=== PATIENT | female | born 1965 | race African-American/Black ===

== ENCOUNTER 2016-03-18 18:29 | Observation (INO) | payer MEDICAID ==
[~2016-03-18] VITALS: Ht 154.9 cm; Wt 95.0 kg
[~2016-03-18 18:29] MED LIST: ALBU0.08 NEB; ALBUAER3 INH; AMLO10TA2 PO; ASPI-110 PO; ATOR1TAB18 PO; FURO40TA PO; GABA600T PO; GEMF600T PO; HYDR25TA35 PO; INSU100V SQ; LANTUS2P; METF1000 PO; METO25TA3 PO; NITR1SUB3 SL; POLY10O RIGHT EYE; PRAS10TA PO; PRED-503 PO; SPIR50TA PO; VALS1TAB64 PO; VENTAER INH
[2016-03-18 18:31] VITALS: BP 131/64; PULSE 94; RESP 15; TEMP 98.2; O2SAT 95
[2016-03-18 18:56] VITALS: BP 125/59; PULSE 88; O2SAT 95
[2016-03-18] MEDS ORDERED: SODIUM CHLORIDE 0.9% FLUSH 5 ML FLUSH IVF PRN (19:00)
[2016-03-18] MEDS ORDERED: ASPIRIN 81 MG CHEW TAB CHEW ONE (19:00)
--- NOTE | 2016-03-18 19:03 | PD ---
HPI Chief Complaint: Dizziness Time Seen by Provider: 18:59 Travel History International Travel<30 days: No Contact w/Intl Traveler<30days: No Traveled to known affect area: No History of Present Illness HPI This is a 50-year-old female who has a history of a CABG and recent stent placement to one of her grafts, presenting to the emergency department having been doing laundry when she started to feel lightheaded and dizzy like she was going to pass out. She says that her vision got dark, she felt pressure in her left chest and she also felt somewhat nauseous and short of breath. She says that it she doesn't feel dizzy anymore but she still feels a heaviness in her left chest. She says she's never had this happen before. She does report that she's been sick with cold symptoms with a runny nose and cough over the past week preceding this. Her tv news director is Dr. Engel. REPLACED BY [facility] Past Medical History Hx Anticoagulant Therapy: Yes Asthma: Yes Autoimmune Disease: No Blood Disorders: No Anxiety: Yes Depression: No Heart Rhythm Problems: Yes (EPISODE OF UNSUSTAINED VTACH ON PREVIOUS ADMISSION) Cancer: No Cardiac Catheterization: Yes Cardiovascular Problems: Yes High Cholesterol: Yes Chest Pain: Yes Congestive Heart Failure: Yes COPD: Yes Cerebrovascular Accident: No Coronary Artery Disease: Yes Diabetes: Yes (INSULIN ) Patient Takes Glucophage: No Diminished Hearing: Yes (MILLE LACS) Endocrine: Yes Gastrointestinal Disorders: No GERD: Yes Genitourinary: Yes Headaches: No Hypertension: Yes Immune Disorder: No Implanted Vascular Access Dvce: No Musculoskeletal: No Neurologic: No Psychiatric: No Reproductive: Yes (HYSTERECTOMY) Respiratory: Yes Migraines: No Myocardial Infarction: Yes Pneumonia: Yes Seizures: No Sleep Apnea: No Thyroid Disease: No Tetanus Vaccination: > 5 Years ?: Not Menopausal: Yes : 4 Para: 4 Tubal Ligation: Yes Past Surgical History Abdominal Surgery: No Cardiac Surgery: Yes (TRIPLE BYPASS 2011) Coronary Artery Bypass Graft: Yes (CABG X 23 NOV 2011) Coronary Stent: Yes Ear Surgery: No Endocrine Surgery: No Eye Surgery: No Genitourinary Surgery: No Gynecologic Surgery: Yes (HYSTERECTOMY, TUBaL LIGATION) Hysterectomy: Yes Neurologic Surgery: No Oral Surgery: No Thoracic Surgery: No Other Surgery: Yes (R HAND ) Family History Family Myocardial Infarction: Yes (MOTHER AND FATHER) Social History Alcohol Use: Yes (OCC) Tobacco Use: Yes (1-2 CIG/DAY) Substance Use: No Allergies-Medications (Allergen,Severity, Reaction): Coded Allergies: FREDRICK Inhibitors (Verified Allergy, Severe, Swelling, 02/18/16) ANGIOEDEMA TO ENALIPRIIL *MDRO Multi-Drug Resistant Organism (Verified Allergy, Unknown, 02/18/16) MRSA Reported Meds & Prescriptions Reported Meds & Active Scripts Active Effient (Prasugrel) 10 Mg Tab 10 Mg PO DAILY Metoprolol Tartrate 25 Mg Tab 25 Mg PO Q12H Reported Valsartan 80 Mg Tab 80 Mg PO DAILY Spironolactone 50 Mg Tab 50 Mg PO DAILY Nitroglycerin SL (Nitroglycerin) 0.4 Mg Subl 0.4 Mg SL DIRECTED PRN ONE TABLET UNDER THE TONGUE NEEDED FOR CHEST PAIN, MAY REPEAT EVERY FIVE MINUTES FOR A TOTAL OF 3 DOSES OR CALL 911 IF NO RELIEF Deltasone (Prednisone) 20 Mg Tab 20 Mg PO DAILY Polytrim Opth Drops (Polymyxin/Trimethoprim Sulfate) 10,000-0.1 Unit/Ml-% Soln 1 Drop RIGHT EYE Q6HR Metformin (Metformin HCl) 1,000 Mg Tab 1,000 Mg PO BIDPC With meals Lantus Inj (Insulin Glargine) 100 Unit/Ml Inj Hydralazine (Hydralazine HCl) 25 Mg Tab 25 Mg PO TID Take with a meal Humalog Mix 75-25 Inj (Insulin Lispro Protam/Lispro Human) 1,000 Unit/10 Ml Susp 1 Units SQ Gemfibrozil 600 Mg Tab 600 Mg PO BIDAC Take 30 minutes prior to breakfast and dinner. Gabapentin 600 Mg Tab 600 Mg PO TID Furosemide 40 Mg Tab 40 Mg PO DAILY Atorvastatin (Atorvastatin Calcium) 80 Mg Tab 80 Mg PO HS Aspirin 81 (Aspirin) 81 Mg Tabdr 81 Mg PO DAILY Ventolin Hfa 18 GM Inh (Albuterol Sulfate) 90 Mcg/Act Aer 2 Puff INH Q4H PRN Albuterol Neb (Albuterol Sulfate) 2.5 Mg/3 Ml Neb 2.5 Mg NEB Q4HR NEB PRN Proair Hfa 8.5 GM Inh (Albuterol Sulfate) 90 Mcg/Act Aer 2 Puff INH 108 mcg/actuation Amlodipine (Amlodipine Besylate) 10 Mg Tab 10 Mg PO DAILY Review of Systems Except as stated in HPI: all other systems reviewed are Neg Physical Exam Narrative GENERAL:Well appearing, no acute distress SKIN: Warm and dry. HEAD: Atraumatic. Normocephalic. EYES: Pupils equal and round. No injection or drainage. ENT: Moist mucous membranes NECK: Trachea midline. CARDIOVASCULAR: Regular rate and rhythm. No murmur appreciated. RESPIRATORY: Clear to auscultation. Breath sounds equal bilaterally. GASTROINTESTINAL: Abdomen soft, non-tender, nondistended. MUSCULOSKELETAL: No obvious deformities. NEUROLOGICAL: Awake and alert. No obvious cranial nerve deficits. Moving all extremities. PSYCHIATRIC: Appropriate mood and affect; insight and judgment normal. Data Data Last Documented VS Vital Signs Date Time Temp Pulse Resp B/P Pulse Ox O2 Delivery O2 Flow Rate FiO2 03/18/16 18:56 88 125/59 95 Room Air 03/18/16 18:31 98.2 15 Orders Electrocardiogram (03/18/16 19:00) Complete Blood Count With Diff (03/18/16 19:00) Comprehensive Metabolic Panel (03/18/16 19:00) Magnesium (Mg) (03/18/16 19:00) Prothrombin Time / Inr (Pt) (03/18/16 19:00) Act Partial Throm Time (Ptt) (03/18/16 19:00) Troponin I (03/18/16 19:00) Chest, Single Ap (03/18/16 19:00) Ecg Monitoring (03/18/16 19:00) Bilateral Bp Monitoring (03/18/16 19:00) Iv Access Insert/Monitor (03/18/16 19:00) Oximetry (03/18/16 19:00) Oxygen Administration (03/18/16 19:00) Sodium Chloride 0.9% Flush (Ns Flush) (03/18/16 19:00) Aspirin Chew (Aspirin Chew) (03/18/16 19:00) Sodium Chlorid 0.9% 500 Ml Inj (Ns 500 M (03/18/16 20:15) Sodium Chlorid 0.9% 500 Ml Inj (Ns 500 M (03/18/16 20:15) Admit Order (Ed Use Only) (03/18/16 20:29) Labs Laboratory Tests Test 03/18/16 19:00 White Blood Count 9.2 TH/MM3 Red Blood Count 4.72 MIL/MM3 Hemoglobin 14.1 GM/DL Hematocrit 41.8 % Mean Corpuscular Volume 88.6 FL Mean Corpuscular Hemoglobin 29.9 PG Mean Corpuscular Hemoglobin 33.8 % Concent Red Cell Distribution Width 13.8 % Platelet Count 228 TH/MM3 Mean Platelet Volume 10.6 FL Neutrophils (%) (Auto) 52.6 % Lymphocytes (%) (Auto) 39.9 % Monocytes (%) (Auto) 5.9 % Eosinophils (%) (Auto) 1.2 % Basophils (%) (Auto) 0.4 % Neutrophils # (Auto) 4.8 TH/MM3 Lymphocytes # (Auto) 3.6 TH/MM3 Monocytes # (Auto) 0.5 TH/MM3 Eosinophils # (Auto) 0.1 TH/MM3 Basophils # (Auto) 0.0 TH/MM3 CBC Comment DIFF FINAL Differential Comment Prothrombin Time 10.9 SEC Prothromb Time International 1.0 RATIO Ratio Activated Partial 25.7 SEC Thromboplast Time Sodium Level 135 MEQ/L Potassium Level 4.5 MEQ/L Chloride Level 103 MEQ/L Carbon Dioxide Level 22.2 MEQ/L Anion Gap 10 MEQ/L Blood Urea Nitrogen 31 MG/DL Creatinine 1.95 MG/DL Estimat Glomerular Filtration 33 ML/MIN Rate Random Glucose 264 MG/DL Calcium Level 8.8 MG/DL Magnesium Level 1.7 MG/DL Total Bilirubin 0.3 MG/DL Aspartate Amino Transf 20 U/L (AST/SGOT) Alanine Aminotransferase 30 U/L (ALT/SGPT) Alkaline Phosphatase 65 U/L Troponin I LESS THAN 0.02 NG/ML Total Protein 8.0 GM/DL Albumin 3.9 GM/DL [facility] Medical Decision Making Medical Screen Exam Complete: Yes Emergency Medical Condition: Yes Interpretation(s) Afebrile, mild tachycardia, normotensive EKG: Normal sinus rhythm, no ST changes No leukocytosis Renal insufficiency with GFR of 33 reduced from 68 in January Hyperglycemia Troponin is normal Chest x-ray: No acute process Differential Diagnosis Acute coronary syndrome, stent reocclusion, overdiuresis, electrolyte abnormality, arrhythmia Narrative Course This is a 50-year-old female who presents to the emergency department having recently had a stent placed in January, with an episode of lightheadedness and dizziness associated with some chest heaviness earlier this afternoon. He was placed on a monitor and an IV was established. EKG is reassuring and nonischemic. Labs were obtained which demonstrate a GFR reduction to 33 from and January. Otherwise her troponin is normal. Patient appears dehydrated and may be over diuresis. She was given two 500 cc boluses. Her ejection fraction is 50%. I think she should be placed in observation for IV hydration and serial cardiac enzymes given her recent PCI. Diagnosis Primary Impression: Dehydration Additional Impression: Chest pain Qualified Code: R07.89 - Other chest pain Admitting Information Admitting Physician Requests: Observation Julia Monet MD Mar 18, 2016 19:03 Julia Monet MD Mar 18, 2016 19:03
[2016-03-18 19:34] LABS: AUTOMATED NEUTROPHIL # 4.8 TH/MM3 (1.8-7.7); BASOPHIL % 0.4 % (0.0-2.0); EOSINOPHIL # 0.1 TH/MM3 (0-0.4); EOSINOPHIL % 1.2 % (0.0-4.0); HEMATOCRIT 41.8 % (35.0-46.0); HEMO FLAGS DIFF FINAL; LYMPH % 39.9 % (9.0-44.0); LYMPHOCYTE # 3.6 TH/MM3 (1.0-4.8); MEAN CELL VOLUME 88.6 FL (80.0-100.0); MEAN CORPUSCULAR HEMOGLOBIN 29.9 PG (27.0-34.0); MEAN CORPUSCULAR HGB CONC 33.8 % (32.0-36.0); MONO % 5.9 % (0.0-8.0); NEUT % 52.6 % (16.0-70.0); PLATELET COUNT 228 TH/MM3 (150-450); RED BLOOD COUNT 4.72 MIL/MM3 (4.00-5.30); RED CELL DISTRIBUTION WIDTH 13.8 % (11.6-17.2); WHITE BLOOD COUNT 9.2 TH/MM3 (4.0-11.0)
[2016-03-18 19:40] LABS: APTT (PATIENT) 25.7 SEC (24.3-30.1); PROTHROMBIN TIME - PATIENT 10.9 SEC (9.8-11.6)
--- NOTE | 2016-03-18 19:47 | RADRPT ---
EXAM DATE/TIME: 03/18/2016 19:22 [facility] COMPARISON: CHEST SINGLE AP, November 13, 2012, 16:00. CHEST SINGLE AP, February 16, 2016, 0:48. INDICATIONS : Chest Pain, Short of Breath. MEDICAL HISTORY : Asthma. Hypertension. Myocardial infarction. Chronic obstructive pulmonary disease. SURGICAL HISTORY : CABG. ENCOUNTER: Initial ACUITY: 1 day PAIN SCORE: 10/10 LOCATION: Bilateral chest FINDINGS: Chronic cystic interstitial changes are present in the left apex not changed since 2012. There is no appreciable pleural effusion for technique. Heart and mediastinum are unremarkable. There is evide nce for prior median sternotomy. CONCLUSION: No acute cardiopulmonary disease. Kristin Jose MD on March 18, 2016 at 19:45 Board Certified Radiologist. This report was verified electronically.
[2016-03-18 19:59] LABS: ALKALINE PHOSPHATASE 65 U/L (45-117); ALT (GPT) 30 U/L (10-53); ANION GAP 10 MEQ/L (5-15); AST (GOT) 20 U/L (15-37); BICARBONATE 22.2 MEQ/L (21.0-32.0); BLOOD UREA NITROGEN 31 MG/DL (7-18); CHLORIDE 103 MEQ/L (98-107); GLOMERULAR FILTRATION RATE 33 ML/MIN (>89); MAGNESIUM 1.7 MG/DL (1.5-2.5); SODIUM (NA) 135 MEQ/L (136-145); TOTAL BILIRUBIN ADULT 0.3 MG/DL (0.2-1.0)
[2016-03-18 20:00] LABS: POTASSIUM 4.5 MEQ/L (3.5-5.1)
[2016-03-18] MEDS ORDERED: SODIUM CHLORID 0.9% 500 ML INJ 500 ML IV ONE ×2 (20:15)
[2016-03-18] MEDS ORDERED: BISACODYL 10 MG SUPP PR PRN (20:30)
[2016-03-18] MEDS ORDERED: MORPHINE SULFATE 4 MG/ML INJ IV PRN (20:30)
[2016-03-18] MEDS ORDERED: SODIUM CHLORIDE 0.9% FLUSH 5 ML FLUSH FLUSH PRN (20:30)
[2016-03-18] MEDS ORDERED: ALBUTEROL SULFATE 90 MCG/ACT HFA 8 GM INHALER INH PRN (20:30)
[2016-03-18] MEDS ORDERED: ACETAMINOPHEN 325 MG TAB PO PRN (20:30)
[2016-03-18] MEDS ORDERED: ONDANSETRON HCL 4 MG/2 ML VIAL IVP PRN (20:30)
[2016-03-18] MEDS ORDERED: ACETAMINOPHEN/HYDROcodone 325 MG/5 MG TAB PO PRN (20:30)
--- NOTE | 2016-03-18 20:37 | HHI.HP ---
[facility] Service [facility] Primary Care Physician Grabiel Weiss Admission Diagnosis renal failure, chest pain Diagnoses: (1) Chest pain Diagnosis: Principal (2) Renal insufficiency Diagnosis: Principal (3) HTN (hypertension) Diagnosis: Principal (4) DM (diabetes mellitus) Diagnosis: Principal Travel History International Travel<30 Days: No Contact w/Intl Traveler <30 Da: No Traveled to Known Affected Are: No History of Present Illness This is a 50-year-old female with a PMH of Anxiety, HTN, CAD s/p CABG, COPD, DM and CHF (Echo 02/16/16 w/ EF 50%) who came to the ER w/ complaints of chest pain starting earlier this evening. States she was doing laundry when she had sudden lightheadedness, chest pressure started at the same time. Denies fever, chills, cough, nausea, vomiting or diarrhea. On arrival, BP 131/64, HR 94, O2 sat 95% on RA, Afebrile. CBC unremarkable. Creatinine 1.95, previously 1.03 on 02/09/16. Troponin negative. EKG with no acute changes. UA negative. CXR with no acute findings. Review of Systems Other ROS: 14 point review of systems otherwise negative. Past Family Social History Past Medical History PMH: Anxiety, HTN, CAD s/p CABG, COPD, DM and CHF (Echo 02/16/16 w/ EF 50%) Past Surgical History PAST SURGICAL HISTORY: CABG, Cardiac Stent, Hysterectomy, Tubal Ligation Allergies: Coded Allergies: FREDRICK Inhibitors (Verified Allergy, Severe, Swelling, 02/18/16) ANGIOEDEMA TO ENALIPRIIL *MDRO Multi-Drug Resistant Organism (Verified Allergy, Unknown, 02/18/16) MRSA Family History PAST FAMILY HISTORY: Reviewed, positive for DM and CAD. Social History PAST SOCIAL HISTORY: Occasional alcohol. Smokes 1-2 cigarettes per day. Negative for drugs. Physical Exam Vital Signs Vital Signs Date Time Temp Pulse Resp B/P Pulse Ox O2 Delivery O2 Flow Rate FiO2 03/18/16 18:56 88 125/59 95 Room Air 03/18/16 18:31 98.2 94 15 131/64 95 Physical Exam PE: GENERAL: Middle-aged female in no acute distress. HEENT: PERRLA, EOMI. No scleral icterus or conjunctival pallor. No lid lag or facial droop. CARDIOVASCULAR: Regular rate and rhythm. No obvious murmurs to auscultation. No chest tenderness to palpation. RESPIRATORY: No obvious rhonchi or wheezing. Clear to auscultation. Breath sounds equal bilaterally. GASTROINTESTINAL: Abdomen soft, non-tender, nondistended. BS normal. MUSCULOSKELETAL: Extremities without clubbing, cyanosis, or edema. No obvious deformities. NEUROLOGICAL: Awake, alert and oriented x4. No focal neurologic deficits. Moving both upper and lower extremities spontaneously. Laboratory Laboratory Tests Test 03/18/16 19:00 White Blood Count 9.2 Red Blood Count 4.72 Hemoglobin 14.1 Hematocrit 41.8 Mean Corpuscular Volume 88.6 Mean Corpuscular Hemoglobin 29.9 Mean Corpuscular Hemoglobin 33.8 Concent Red Cell Distribution Width 13.8 Platelet Count 228 Mean Platelet Volume 10.6 Neutrophils (%) (Auto) 52.6 Lymphocytes (%) (Auto) 39.9 Monocytes (%) (Auto) 5.9 Eosinophils (%) (Auto) 1.2 Basophils (%) (Auto) 0.4 Neutrophils # (Auto) 4.8 Lymphocytes # (Auto) 3.6 Monocytes # (Auto) 0.5 Eosinophils # (Auto) 0.1 Basophils # (Auto) 0.0 CBC Comment DIFF FINAL Differential Comment Prothrombin Time 10.9 Prothromb Time International 1.0 Ratio Activated Partial 25.7 Thromboplast Time Sodium Level 135 Potassium Level 4.5 Chloride Level 103 Carbon Dioxide Level 22.2 Anion Gap 10 Blood Urea Nitrogen 31 Creatinine 1.95 Estimat Glomerular Filtration 33 Rate Random Glucose 264 Calcium Level 8.8 Magnesium Level 1.7 Total Bilirubin 0.3 Aspartate Amino Transf 20 (AST/SGOT) Alanine Aminotransferase 30 (ALT/SGPT) Alkaline Phosphatase 65 Troponin I LESS THAN 0.02 Total Protein 8.0 Albumin 3.9 Result Diagram: 03/18/16189903/18/161899 Assessment and Plan Problem List: (1) Chest pain ICD Code: R07.9 Status: Acute (2) Renal insufficiency ICD Code: N28.9 Status: Acute (3) HTN (hypertension) ICD Code: I10 Status: Acute (4) DM (diabetes mellitus) ICD Code: E11.9 Status: Acute Assessment and Plan A/P: 1. Chest Pain: r/o ACS. h/o CAD s/p CABG. Initial trop negative, EKG w/ no acute changes. Admit for Observation, place on telemetry, check serial enzymes for trend. Resume home ASA, Statin, B-milly. Morphine prn. Currently chest pain free. CXR w/ no acute findings, images reviewed by me. S/p Cath 02/16/[address] Engel w/ BERNADETTE to SV. 2. Renal Insufficiency: Acute on Chronic. Creatinine 1.95, previously 1.03 on 02/17/16. U/a negative. IVF-caution w/ CHF. Repeat labs in am. 3. DM: Sliding scale w/ Accu-Cheks. Hold Metformin for possible cardiac intervention if needed. 4. HTN: Controlled. Resume home medications. Monitor BP. 5. DVT Prophylaxis: On Effient 6. Social work for d/c planning as needed. 7. Case discussed w/ ER physician at length. Valarie Cyr MD Mar 18, 2016 20:37
[2016-03-18] MEDS: METOPROLOL TARTRATE 25 MG TAB PO SCH (21:00)
[2016-03-18] MEDS ORDERED: ATORVASTATIN 80 MG TAB PO SCH (21:00)
[2016-03-18 21:13] VITALS: O2SAT 100
[2016-03-18 21:22] LABS: BLOOD, URINE NEG (NEG); COMMENT (UR) CULT NOT INDICATED; CULTURE IF INDICATED CULT NOT INDICATED; GLUCOSE,URINE NEG (NEG); HYALINE CAST, URINE 46 /lpf (RARE); KETONE, URINE NEG (NEG); MUCUS URINE FEW /lpf (OCC); NITRITE,URINE NEG (NEG); SQUAMOUS EPITHELIAL CELL URINE 1 /hpf (0-5); URINE COLOR YELLOW (YELLW/STRAW)
[2016-03-18] MEDS: SODIUM CHLOR 0.9% 1000 ML INJ 1,000 ML IV SCH (21:42)
[2016-03-18] MEDS: SODIUM CHLORIDE 0.9% FLUSH 5 ML FLUSH FLUSH SCH (21:47)
[2016-03-18 23:30] VITALS: PULSE 70
[2016-03-18 23:48] VITALS: BP 120/69; PULSE 81; RESP 20; TEMP 97.6; O2SAT 99
[2016-03-19 03:46] VITALS: BP 103/65; PULSE 81; RESP 20; TEMP 97.4; O2SAT 96
[2016-03-19] MEDS: SODIUM CHLOR 0.9% 1000 ML INJ 1,000 ML IV SCH ×2 (05:32→16:30)
[2016-03-19] MEDS ORDERED: GEMFIBROZIL 600 MG TAB PO SCH (07:00)
[2016-03-19 07:21] LABS: ALKALINE PHOSPHATASE 65 U/L (45-117); ALT (GPT) 34 U/L (10-53); ANION GAP 11 MEQ/L (5-15); AST (GOT) 11 U/L (15-37); BICARBONATE 22.2 MEQ/L (21.0-32.0); BLOOD UREA NITROGEN 28 MG/DL (7-18); CHLORIDE 104 MEQ/L (98-107); GLOMERULAR FILTRATION RATE 47 ML/MIN (>89); SODIUM (NA) 137 MEQ/L (136-145); TOTAL BILIRUBIN ADULT 0.3 MG/DL (0.2-1.0)
[2016-03-19 07:25] LABS: POTASSIUM 4.2 MEQ/L (3.5-5.1)
[2016-03-19 07:36] LABS: AUTOMATED NEUTROPHIL # 3.5 TH/MM3 (1.8-7.7); BASOPHIL % 0.3 % (0.0-2.0); EOSINOPHIL # 0.2 TH/MM3 (0-0.4); EOSINOPHIL % 2.3 % (0.0-4.0); HEMATOCRIT 38.3 % (35.0-46.0); HEMO FLAGS DIFF FINAL; LYMPH % 48.5 % (9.0-44.0); LYMPHOCYTE # 3.9 TH/MM3 (1.0-4.8); MEAN CELL VOLUME 88.7 FL (80.0-100.0); MEAN CORPUSCULAR HEMOGLOBIN 31.3 PG (27.0-34.0); MEAN CORPUSCULAR HGB CONC 35.3 % (32.0-36.0); MONO % 5.4 % (0.0-8.0); NEUT % 43.5 % (16.0-70.0); PLATELET COUNT 200 TH/MM3 (150-450); RED BLOOD COUNT 4.32 MIL/MM3 (4.00-5.30); RED CELL DISTRIBUTION WIDTH 13.6 % (11.6-17.2); WHITE BLOOD COUNT 8.1 TH/MM3 (4.0-11.0)
[2016-03-19 08:00] VITALS: BP 130/68; PULSE 79; RESP 18; TEMP 97.9; O2SAT 98
[2016-03-19 08:02] VITALS: PULSE 78
[2016-03-19] MEDS: hydrALAZINE HCL 25 MG TAB PO SCH ×3 (08:39→17:06)
[2016-03-19] MEDS: SODIUM CHLORIDE 0.9% FLUSH 5 ML FLUSH FLUSH SCH (08:39)
[2016-03-19] MEDS: METOPROLOL TARTRATE 25 MG TAB PO SCH (08:39)
[2016-03-19] MEDS ORDERED: GLUCAGON 1 MG/ML VIAL OTHER PRN (09:00)
[2016-03-19] MEDS ORDERED: DEXTROSE 50% IN WATER 50 ML VIAL(D50) IV PUSH PRN (09:00)
[2016-03-19] MEDS ORDERED: PRASUGREL 10 MG TAB PO SCH (09:00)
[2016-03-19] MEDS ORDERED: ASPIRIN EC 81 MG TABEC PO SCH (09:00)
--- NOTE | 2016-03-19 09:05 | HHI.PR ---
Subjective Remarks Follow up for for chest pain, lightheadedness, HOLLIE. The patient reports no further chest pains or lightheadedness overnight. She still has some shortness of breath at her baseline secondary to COPD. Denies wheezing. O2 sat 98% on 2L NC, the patient does not wear oxygen at home. She has been ambulating without difficulty. Objective Vitals Vital Signs Date Time Temp Pulse Resp B/P Pulse Ox O2 Delivery O2 Flow Rate FiO2 03/19/16 08:00 97.9 79 18 130/68 98 03/19/16 03:46 97.4 81 20 103/65 96 03/18/16 23:48 97.6 81 20 120/69 99 03/18/16 23:30 70 03/18/16 21:52 98 Nasal Cannula 3 03/18/16 21:47 98 Room Air 03/18/16 21:13 100 Room Air 03/18/16 18:56 88 125/59 95 Room Air 03/18/16 18:31 98.2 94 15 131/64 95 I/O 03/18/16 03/18/16 03/18/16 03/19/16 03/19/16 03/19/16 07:00 15:00 23:00 07:00 15:00 23:00 Intake Total 1136 ml Output Total 800 ml Balance 336 ml Intake Oral 480 ml IV Total 656 ml Output Urine Total 800 ml Result Diagram: 03/19/16 0545 03/19/16 0545 Imaging Last Impressions Chest X-Ray 03/18/16 1900 Signed Impressions: Service Date/Time: Friday, March 18, 2016 19:22 - CONCLUSION: No acute cardiopulmonary disease. Kristin Jose MD Objective Remarks GENERAL: Well-developed well-nourished female patient in [facility]. Sitting upright on side of bed. SKIN: Warm and dry. HEAD: Atraumatic. Normocephalic. EYES: Pupils equal and round. No scleral icterus. No injection or drainage. ENT: No nasal bleeding or discharge. Mucous membranes pink and moist. NECK: Trachea midline. CARDIOVASCULAR: Regular rate and rhythm. No murmur. RESPIRATORY: No accessory muscle use. Slightly decreased breath sounds at the bases, otherwise clear to auscultation, no wheezing. Breath sounds equal bilaterally. GASTROINTESTINAL: Abdomen soft, non-tender, nondistended. Hepatic and splenic margins not palpable. MUSCULOSKELETAL: Extremities without clubbing, cyanosis, or edema. No obvious deformities. NEUROLOGICAL: Awake and alert. No obvious cranial nerve deficits. Motor grossly within normal limits. Normal speech. PSYCHIATRIC: Appropriate mood and affect; insight and judgment normal. Medications and IVs Current Medications Medications (Trade) Dose Ordered Sig/Hill Route Start Time Stop Time Status Last Admin (NS 1000 ml Inj) 1,000 ml @ 100 mls/hr Q10H IV 03/18/16 21:00 03/19/16 05:32 (NS Flush) 2 ml UNSCH PRN FLUSH 03/18/16 20:30 (NS Flush) 2 ml BID FLUSH 03/18/16 21:00 03/18/16 21:47 (Zofran Inj) 4 mg Q6H PRN IVP 03/18/16 20:30 (Dulcolax Supp) 10 mg DAILY PRN OH 03/18/16 20:30 (Tylenol) 650 mg Q6H PRN PO 03/18/16 20:30 (Rawlings 5-325 Mg) 1 tab Q4H PRN PO 03/18/16 20:30 (Morphine Inj) 2 mg Q3H PRN IV 03/18/16 20:30 (Proair Hfa Inh) 2 puff Q4H PRN INH 03/18/16 20:30 (Norvasc) 10 mg DAILY PO 03/19/16 09:00 03/19/16 08:39 (Ecotrin Ec) 81 mg DAILY PO 03/19/16 09:00 03/19/16 08:39 (Lipitor) 80 mg HS PO 03/18/16 21:00 03/18/16 20:59 (Apresoline) 25 mg TID PO 03/19/16 09:00 03/19/16 08:39 (Lopressor) 25 mg Q12H PO 03/18/16 21:00 03/19/16 08:39 (Effient) 10 mg DAILY PO 03/19/16 09:00 03/19/16 08:39 (D50w (Vial) Inj) 25 ml UNSCH PRN IV PUSH 03/19/16 09:00 UNV (Glucagon Inj) 1 mg UNSCH PRN OTHER 03/19/16 09:00 UNV Urinary Catheter: No Vascular Central Line Catheter: No A/P Problem List: (1) Chest pain ICD Code: R07.9 Status: Acute (2) Renal insufficiency ICD Code: N28.9 Status: Acute (3) HTN (hypertension) ICD Code: I10 Status: Acute (4) DM (diabetes mellitus) ICD Code: E11.9 Status: Acute Assessment and Plan 50-year-old female with a PMH of Anxiety, HTN, CAD s/p CABG, COPD, DM and CHF ( Echo 02/16/16 w/ EF 50%) who came to the ER w/ complaints of chest pain starting earlier this evening. Chest Pain: h/o CAD s/p CABG. CXR w/ no acute findings, images reviewed by me. ACS ruled out with negative serial cardiac enzymes x3 and EKG w/ no acute changes. Monitored on telemetry, no events. Resume home ASA, Statin, B-milly. Morphine prn. Currently chest pain free. S/p Cath 02/16/[address] Engel w/ BERNADETTE to SV. Continue outpatient f/up with cardiology. HOLLIE: Acute on Chronic. Creatinine 1.95, previously 1.03 on 02/17/16. U/a negative. Patient appears dry, Holding Lasix for now. IVF-caution w/ CHF. Repeat labs today show improvement, Cr 1.4, will recheck this afternoon. DM: Sliding scale w/ Accu-Cheks. Held Metformin for now HTN: Controlled. Resume home medications. Monitor BP. CHF: does not appear to be in exacerbation. No signs of fluid overload. Echo with EF 50%. Holding Lasix with HOLLIE. COPD: with mild exacerbation. Patient ran out of her duoneb solution at home. Continue duoneb treatments. No wheezing currently. Check home O2 walk test. DVT Prophylaxis: On Effient Written by Arti Conde, acting as scribe for Dr. Schulz on 03/19/16 at 08:55. The documentation accurately reflects the work performed [id number] by me Dr. Schulz on 03/19/16 at 08:55. Discharge Planning Likely discharge later today if BMP shows continued improvement and if patient passes home O2 walk test. Discharge patient to home Condition on discharge: Improved Heart Healthy Diet as tolerated Ad Samantha activity Rx written: albuterol neb solution, Ventolin hfa inhaler, decreased lasix dose from 40mg to 20mg (to restart in 3days) Follow-up with primary care physician Dr. Weiss in 1 week Check outpatient BMP in 1 week Arti Conde PA-C Mar 19, 2016 09:05 Laura Schulz MD Mar 19, 2016 18:02
[2016-03-19] MEDS ORDERED: FURO40TA PO (10:28)
[2016-03-19] MEDS ORDERED: ALBU0.08 NEB (10:28)
[2016-03-19] MEDS ORDERED: VENTAER INH (10:28)
[2016-03-19 10:29] VITALS: O2SAT 98
--- NOTE | 2016-03-19 10:29 | HHI.DCPOC ---
Discharge Care Plan Diagnosis: (1) Chest pain, atypical (2) Bronchitis (3) COPD (chronic obstructive pulmonary disease) (4) Acute renal insufficiency (5) Dehydration (6) Hypertension (7) Hyperlipidemia (8) Hx of coronary artery disease Goals to Promote Your Health * To prevent worsening of your condition and complications * To maintain your health at the optimal level Directions to Meet Your Goals Take your medications as prescribed Follow your dietary instruction Follow activity as directed Keep your appointments as scheduled Take your immunizations and boosters as scheduled If your symptoms worsen call your PCP, if no PCP go to Urgent Care Center or Emergency Room Smoking is Dangerous to Your Health. Avoid second hand smoke Call the 24-hour hour crisis hotline for domestic abuse at Arti Conde PA-C Mar 19, 2016 10:29 Laura Schulz MD Mar 19, 2016 18:03
[2016-03-19] MEDS: INSULIN ASPART SUPPLEMENTAL SCALE SQ SCH ×2 (12:04→17:06)
[2016-03-19 12:16] VITALS: BP 121/58; PULSE 83; RESP 18; TEMP 97; O2SAT 98
--- NOTE | 2016-03-19 12:26 | EKG ---
Date Performed: 03/18/2016 Time Performed: 19:05:21 PTAGE: 50 years EKG: Sinus rhythm POSSIBLE LEFT ATRIAL ENLARGEMENT BORDERLINE ECG PREVIOUS TRACING : 02/16/2016 05.31 Compared to prior tracing no significant change DOCTOR: Jeremy Bell Interpretating Date/Time 03/19/2016 12:24:10
--- NOTE | 2016-03-19 12:51 | EKG ---
Date Performed: 03/19/2016 Time Performed: 00:58:12 PTAGE: 50 years EKG: Sinus rhythm Compared to prior tracing no significant change ABNORMAL ECG PREVIOUS TRACING : 03/18/2016 19.05 DOCTOR: Jeremy Bell Interpretating Date/Time 03/19/2016 12:50:44
--- NOTE | 2016-03-19 12:52 | EKG ---
Date Performed: 03/19/2016 Time Performed: 06:15:28 PTAGE: 50 years EKG: Sinus rhythm Compared to prior tracing no significant change ABNORMAL ECG PREVIOUS TRACING : 03/19/2016 00.58 DOCTOR: Jeremy Bell Interpretating Date/Time 03/19/2016 12:50:56
[2016-03-19 16:00] VITALS: BP 144/72; PULSE 86; RESP 18; TEMP 97.5; O2SAT 94
[2016-03-19 17:52] LABS: BICARBONATE 27.1 MEQ/L (21.0-32.0); POTASSIUM 4.7 MEQ/L (3.5-5.1)
== END 2016-03-19 19:19 | disposition home or self-care (01) ==
LOC: NEPC 18:29 → NEDA 20:30 → NEPGCP 22:51
PROVIDERS: ADMIT Hospitalist; ATTEND Hospitalist
DX: R07.89 Other chest pain (principal); E86.0 Dehydration; I25.10 Atherosclerotic heart disease of native coronary artery without angina pectoris; I13.0 Hypertensive heart and chronic kidney disease with heart failure and stage 1 through stage 4 chronic kidney disease, or unspecified chronic kidney disease; I50.9 Heart failure, unspecified; N17.9 Acute kidney failure, unspecified; N18.9 Chronic kidney disease, unspecified; E11.22 Type 2 diabetes mellitus with diabetic chronic kidney disease; I25.2 Old myocardial infarction; J44.1 Chronic obstructive pulmonary disease with (acute) exacerbation; J45.909 Unspecified asthma, uncomplicated; E78.00 Pure hypercholesterolemia, unspecified; K21.9 Gastro-esophageal reflux disease without esophagitis; Z72.0 Tobacco use; Z95.1 Presence of aortocoronary bypass graft; Z95.5 Presence of coronary angioplasty implant and graft
CPT/HCPCS: 71010; 80048; 80053; 81001; 82948; 83735; 84484; 85025; 85610; 85730; 93005; 94620; 99285; G0378; J1815; J7030; J7040

== ENCOUNTER 2016-06-21 02:38 | Emergency (ER) | payer MEDICAID ==
[~2016-06-21] VITALS: Ht 154.9 cm; Wt 85.0 kg
[~2016-06-21 02:38] MED LIST changes: -ALBUAER3 INH; -POLY10O RIGHT EYE; -PRED-503 PO; -VALS1TAB64 PO
[2016-06-21 02:41] VITALS: BP 188/96; PULSE 85; RESP 16; TEMP 98.2; O2SAT 100
[2016-06-21] MEDS ORDERED: LABE200T2 PO (02:52)
[2016-06-21] MEDS ORDERED: DAPA1TAB PO (02:52)
[2016-06-21] MEDS ORDERED: SPIRCAP INH (02:52)
[2016-06-21] MEDS ORDERED: FENO145T2 PO (02:52)
[2016-06-21] MEDS ORDERED: NOVOLOGSS SQ (02:52)
[2016-06-21] MEDS ORDERED: ALBUAER3 INH (02:52)
[2016-06-21] MEDS ORDERED: PRAS10TA PO (02:52)
[2016-06-21] MEDS ORDERED: VALS1TAB65 PO (02:52)
[2016-06-21 02:55] VITALS: BP 188/78; O2SAT 98
[2016-06-21] MEDS ORDERED: SODIUM CHLORIDE 0.9% FLUSH 10 ML FLUSH IVF PRN (03:00)
[2016-06-21] MEDS ORDERED: ASPIRIN 81 MG CHEW TAB PO ONE (03:00)
[2016-06-21 03:05] LABS: AUTOMATED NEUTROPHIL # 5.1 TH/MM3 (1.8-7.7); BASOPHIL # 0.1 TH/MM3 (0-0.2); BASOPHIL % 0.7 % (0.0-2.0); EOSINOPHIL # 0.1 TH/MM3 (0-0.4); EOSINOPHIL % 0.9 % (0.0-4.0); HEMATOCRIT 36.5 % (35.0-46.0); HEMO FLAGS DIFF FINAL; LYMPH % 37.3 % (9.0-44.0); LYMPHOCYTE # 3.5 TH/MM3 (1.0-4.8); MEAN CELL VOLUME 87.6 FL (80.0-100.0); MEAN CORPUSCULAR HEMOGLOBIN 29.2 PG (27.0-34.0); MEAN CORPUSCULAR HGB CONC 33.4 % (32.0-36.0); NEUT % 54.1 % (16.0-70.0); PLATELET COUNT 178 TH/MM3 (150-450); RED BLOOD COUNT 4.17 MIL/MM3 (4.00-5.30); RED CELL DISTRIBUTION WIDTH 13.4 % (11.6-17.2); WHITE BLOOD COUNT 9.4 TH/MM3 (4.0-11.0)
[2016-06-21 03:18] LABS: APTT (PATIENT) 24.9 SEC (24.3-30.1); PROTHROMBIN TIME - PATIENT 11.2 SEC (9.8-11.6)
[2016-06-21 03:29] LABS: BICARBONATE 27.3 MEQ/L (21.0-32.0); MAGNESIUM 2.1 MG/DL (1.5-2.5); POTASSIUM 4.1 MEQ/L (3.5-5.1)
[2016-06-21 03:44] LABS: CKMB 2.5 NG/ML (0.5-3.6)
--- NOTE | 2016-06-21 03:49 | RADRPT ---
EXAM DATE/TIME: 06/21/2016 02:53 [facility] COMPARISON: CHEST SINGLE AP, March 18, 2016, 19:22. INDICATIONS : Chest pain. MEDICAL HISTORY : Chronic obstructive pulmonary disease. Asthma. Hypertension. Myocardial infarction. SURGICAL HISTORY : CABG. ENCOUNTER: Initial ACUITY: 1 day PAIN SCORE: 7/10 LOCATION: Bilateral chest FINDINGS: The cardiac silhouette is enlarged in transverse diameter. Median sternotomy wires are present. A sma ll left sided effusion is present. There is left lower lobe atelectasis versus pneumonia.CONCLUSION: 1. Left lower lobe atelectasis versus pneumonia. Small left effusion Jeremy Bernard MD on June 21, 2016 at 3:47 Board Certified Radiologist. This report was verified electronically.
--- NOTE | 2016-06-21 04:04 | PD ---
HPI . Chest pain Chief Complaint: Chest Pain Time Seen by Provider: 02:51 Travel History International Travel<30 days: No Contact w/Intl Traveler<30days: No Traveled to known affect area: No History of Present Illness HPI This patient presents with about a 12 hour history of chest pain radiating to the left arm. It has been unrelieved by 2 sublingual nitroglycerin at home. She states that nitroglycerin didn't burn under her tongue. She denies any associated shortness of breath. She denies any nausea. She denies diaphoresis. Patient reports known coronary artery disease. She actually has an appointment to see her creative services coordinator on 06/22 for an echo. She is very concerned about keeping that appointment. Patient was treated by EMS with aspirin and 3 sprays of nitroglycerin. Patient is now pain-free. PFSH Past Medical History Hx Anticoagulant Therapy: Yes Asthma: Yes Autoimmune Disease: No Blood Disorders: No Anxiety: Yes Depression: No Heart Rhythm Problems: Yes (EPISODE OF UNSUSTAINED VTACH ON PREVIOUS ADMISSION) Cancer: No Cardiac Catheterization: Yes Cardiovascular Problems: Yes (DC, CABG, STENTS ) High Cholesterol: Yes Chest Pain: Yes Congestive Heart Failure: Yes COPD: Yes Cerebrovascular Accident: No Coronary Artery Disease: Yes Diabetes: Yes (INSULIN ) Patient Takes Glucophage: Yes Diminished Hearing: Yes ([place]) Endocrine: Yes Gastrointestinal Disorders: No GERD: Yes Genitourinary: Yes Headaches: No Heparin Induced Thrombocytopen: No Hypertension: Yes Immune Disorder: No Implanted Vascular Access Dvce: No Musculoskeletal: No Neurologic: No Psychiatric: No Reproductive: Yes (HYSTERECTOMY) Respiratory: Yes Migraines: No Myocardial Infarction: Yes Pneumonia: Yes Seizures: No Sleep Apnea: No Thyroid Disease: No ?: Not Menopausal: Yes : 4 Para: 4 Tubal Ligation: Yes Past Surgical History Abdominal Surgery: No Cardiac Surgery: Yes (TRIPLE BYPASS 2011) Coronary Artery Bypass Graft: Yes (CABG X 23 NOV 2011) Coronary Stent: Yes Ear Surgery: No Endocrine Surgery: No Eye Surgery: No Genitourinary Surgery: No Gynecologic Surgery: Yes (HYSTERECTOMY, TUBaL LIGATION) Hysterectomy: Yes Neurologic Surgery: No Oral Surgery: No Thoracic Surgery: No Other Surgery: Yes (R HAND ) Family History Family Myocardial Infarction: Yes (MOTHER AND FATHER) Social History Alcohol Use: Yes (OCC) Tobacco Use: Yes (1-2 CIG/DAY) Substance Use: No Allergies-Medications (Allergen,Severity, Reaction): Coded Allergies: FREDRICK Inhibitors (Verified Allergy, Severe, Swelling, 06/21/16) ANGIOEDEMA TO ENALIPRIIL *MDRO Multi-Drug Resistant Organism (Verified Allergy, Unknown, 06/21/16) MRSA Reported Meds & Prescriptions Reported Meds & Active Scripts Active Furosemide 40 Mg Tab 20 Mg PO DAILY Decrease lasix dose from 40mg daily to 20mg daily. Re-start Lasix 20mg daily on Tuesday 03/21 Ventolin Hfa 18 GM Inh (Albuterol Sulfate) 90 Mcg/Act Aer 2 Puff INH Q4H PRN Albuterol Neb (Albuterol Sulfate) 2.5 Mg/3 Ml Neb 2.5 Mg NEB Q4HR NEB PRN Metoprolol Tartrate 25 Mg Tab 25 Mg PO Q12H Reported Proair Hfa 8.5 GM Inh (Albuterol Sulfate) 90 Mcg/Act Aer 1 Puff INH Q4H PRN 108 mcg/actuation Valsartan 160 Mg Tab 160 Mg PO BID Farxiga (Dapagliflozin) 5 Mg Tab 5 Mg PO DAILY Fenofibrate 145 Mg Tab 145 Mg PO DAILY Effient (Prasugrel) 10 Mg Tab 10 Mg PO DAILY Novolog Inj (Insulin Aspart) 100 Unit/Ml Inj 10 Unit SQ TIDAC Labetalol (Labetalol HCl) 200 Mg Tab 200 Mg PO BID Spiriva Handihaler (Tiotropium Inh) 18 Mcg Cap 18 Mcg INH DAILY 1 capsule = 18 mcg Spironolactone 50 Mg Tab 50 Mg PO DAILY Nitroglycerin SL (Nitroglycerin) 0.4 Mg Subl 0.4 Mg SL DIRECTED PRN ONE TABLET UNDER THE TONGUE NEEDED FOR CHEST PAIN, MAY REPEAT EVERY FIVE MINUTES FOR A TOTAL OF 3 DOSES OR CALL 911 IF NO RELIEF Metformin (Metformin HCl) 1,000 Mg Tab 1,000 Mg PO BIDPC With meals Lantus Inj (Insulin Glargine) 100 Unit/Ml Inj Hydralazine (Hydralazine HCl) 25 Mg Tab 25 Mg PO TID Take with a meal Humalog Mix 75-25 Inj (Insulin Lispro Protam/Lispro Human) 1,000 Unit/10 Ml Susp 1 Units SQ Gemfibrozil 600 Mg Tab 600 Mg PO BIDAC Take 30 minutes prior to breakfast and dinner. Gabapentin 600 Mg Tab 600 Mg PO TID Atorvastatin (Atorvastatin Calcium) 80 Mg Tab 80 Mg PO HS Aspirin 81 (Aspirin) 81 Mg Tabdr 81 Mg PO DAILY Amlodipine (Amlodipine Besylate) 10 Mg Tab 10 Mg PO DAILY Review of Systems Except as stated in HPI: all other systems reviewed are Neg Cardiovascular: Positive: Chest Pain or Discomfort Respiratory: No: Shortness of Breath Gastrointestinal: No: Nausea, Vomiting Physical Exam Narrative GENERAL: Patient is awake and alert and surrounded by her family. She is in no acute distress. SKIN: Warm and dry. HEAD: Atraumatic. Normocephalic. EYES: Pupils equal and round. Extraocular movements are intact. ENT: No nasal bleeding or discharge. Mucous membranes pink and moist. NECK: Trachea midline. Neck is supple. CARDIOVASCULAR: Regular rate and rhythm. Heart sounds are normal. RESPIRATORY: No accessory muscle use. Lungs are clear with full air movement throughout. GASTROINTESTINAL: Abdomen soft, non-tender, nondistended. MUSCULOSKELETAL: No obvious deformities. No edema. NEUROLOGICAL: Awake and alert. No obvious cranial nerve deficits. Motor grossly within normal limits. Normal speech. PSYCHIATRIC: Appropriate mood and affect; insight and judgment normal. Data Data Last Documented VS Vital Signs Date Time Temp Pulse Resp B/P Pulse Ox O2 Delivery O2 Flow Rate FiO2 06/21/16 02:55 98 Room Air 06/21/16 02:55 188/78 06/21/16 02:41 98.2 85 16 Orders Basic Metabolic Panel (Bmp) (06/21/16 02:51) Ckmb (Isoenzyme) Profile (06/21/16 02:51) Complete Blood Count With Diff (06/21/16 02:51) Magnesium (Mg) (06/21/16 02:51) Prothrombin Time / Inr (Pt) (06/21/16 02:51) Act Partial Throm Time (Ptt) (06/21/16 02:51) Troponin I (06/21/16 02:51) Chest, Single Ap (06/21/16 02:51) Ecg Monitoring (06/21/16 02:51) Bilateral Bp Monitoring (06/21/16 02:51) Iv Access Insert/Monitor (06/21/16 02:51) Oximetry (06/21/16 02:51) Oxygen Administration (06/21/16 02:51) Aspirin Chew (Aspirin Chew) (06/21/16 03:00) Sodium Chloride 0.9% Flush (Ns Flush) (06/21/16 03:00) CKMB (06/21/16 02:50) CKMB% (06/21/16 02:50) Ckmb (Isoenzyme) Profile (06/21/16 05:50) Troponin I (06/21/16 05:50) CKMB (06/21/16 05:50) CKMB% (06/21/16 05:50) Labs Laboratory Tests Test 06/21/16 06/21/16 02:50 05:50 White Blood Count 9.4 TH/MM3 Red Blood Count 4.17 MIL/MM3 Hemoglobin 12.2 GM/DL Hematocrit 36.5 % Mean Corpuscular Volume 87.6 FL Mean Corpuscular Hemoglobin 29.2 PG Mean Corpuscular Hemoglobin 33.4 % Concent Red Cell Distribution Width 13.4 % Platelet Count 178 TH/MM3 Mean Platelet Volume 10.8 FL Neutrophils (%) (Auto) 54.1 % Lymphocytes (%) (Auto) 37.3 % Monocytes (%) (Auto) 7.0 % Eosinophils (%) (Auto) 0.9 % Basophils (%) (Auto) 0.7 % Neutrophils # (Auto) 5.1 TH/MM3 Lymphocytes # (Auto) 3.5 TH/MM3 Monocytes # (Auto) 0.7 TH/MM3 Eosinophils # (Auto) 0.1 TH/MM3 Basophils # (Auto) 0.1 TH/MM3 CBC Comment DIFF FINAL Differential Comment Prothrombin Time 11.2 SEC Prothromb Time International 1.0 RATIO Ratio Activated Partial 24.9 SEC Thromboplast Time Sodium Level 137 MEQ/L Potassium Level 4.1 MEQ/L Chloride Level 104 MEQ/L Carbon Dioxide Level 27.3 MEQ/L Anion Gap 6 MEQ/L Blood Urea Nitrogen 31 MG/DL Creatinine 1.15 MG/DL Estimat Glomerular Filtration 60 ML/MIN Rate Random Glucose 241 MG/DL Calcium Level 9.4 MG/DL Magnesium Level 2.1 MG/DL Total Creatine Kinase 236 U/L 224 U/L Creatine Kinase MB 2.5 NG/ML 2.6 NG/ML Creatine Kinase MB % 1.1 % 1.2 % Troponin I 0.03 NG/ML 0.05 NG/ML MDM Medical Decision Making Medical Screen Exam Complete: Yes Emergency Medical Condition: Yes Medical Record Reviewed: Yes (the patient's most recent cardiac catheterization was in 2016. She had a stent placed at that time. She was noted to have diffuse coronary artery disease.) Interpretation(s) EKG shows a normal sinus rhythm with no acute ischemic change. Second EKG also shows a normal sinus rhythm with no acute ischemic change. Differential Diagnosis Differential diagnosis of chest pain includes but is not limited to musculoskeletal pain, pulmonary embolism, acute coronary syndrome, pneumonia, pleurisy Narrative Course This patient presents for the evaluation of chest pain. She has had pain for about 12 hours. Pain is now resolved following aspirin and nitroglycerin per EMS. Her pain was not resolved by nitroglycerin at home. Patient reports that this is her usual chest pain. Patient tells me that she does not want to be admitted to this hospital. She is very concerned about being discharged so that she can follow-up with her creative services coordinator in another city. She is willing to stay for second set of enzymes. CBC & BMP Diagram 06/21/16 02:50 Initial cardiac enzymes are negative. Repeat troponin is 0.05. Patient has remained pain-free. She still wants to go home. Diagnosis Primary Impression: Chest pain Qualified Code: R07.9 - Chest pain, unspecified type Patient Instructions: Chest Pain (DC), General Instructions Additional Instructions: Keep your appointment with your creative services coordinator. Return here for chest pain which is unrelieved by 3 sublingual nitroglycerin. Disposition: 01 DISCHARGE HOME Condition: Stable Mary Ashraf MD June 21, 2016 04:03
[2016-06-21 06:42] LABS: CKMB 2.6 NG/ML (0.5-3.6)
--- NOTE | 2016-06-21 11:48 | EKG ---
Date Performed: 06/21/2016 Time Performed: 05:52:09 PTAGE: 50 years EKG: Sinus rhythm NORMAL ECG PREVIOUS TRACING : 03/19/2016 06.15 No significant change from previous tracing noted. DOCTOR: Pete Hyde Interpretating Date/Time 06/21/2016 11:47:58
--- NOTE | 2016-06-21 11:53 | EKG ---
Date Performed: 06/21/2016 Time Performed: 02:42:39 PTAGE: 50 years EKG: Sinus rhythm NORMAL ECG PREVIOUS TRACING : 06/03/2016 13.36 No significant change from previous tracing noted. DOCTOR: Pete Hyde Interpretating Date/Time 06/21/2016 11:51:25
== END 2016-06-21 07:42 | disposition home or self-care (01) ==
LOC: NEPC 02:38
DX: R07.9 Chest pain, unspecified (principal); M79.602 Pain in left arm; I10 Essential (primary) hypertension; E11.9 Type 2 diabetes mellitus without complications; E78.00 Pure hypercholesterolemia, unspecified; H91.90 Unspecified hearing loss, unspecified ear; I25.2 Old myocardial infarction; Z72.0 Tobacco use; Z79.4 Long term (current) use of insulin; Z79.01 Long term (current) use of anticoagulants; Z79.899 Other long term (current) drug therapy; Z86.79 Personal history of other diseases of the circulatory system; Z87.09 Personal history of other diseases of the respiratory system; Z86.59 Personal history of other mental and behavioral disorders; Z87.19 Personal history of other diseases of the digestive system; Z87.448 Personal history of other diseases of urinary system
CPT/HCPCS: 71010; 80048; 82550; 82552; 83735; 84484; 85025; 85610; 85730; 93005

== ENCOUNTER 2016-07-13 12:20 | Observation (INO) | payer MEDICAID ==
[~2016-07-13] VITALS: Ht 154.9 cm; Wt 85.4 kg
[2016-07-13] VITALS (7 sets, daily range): BP systolic 102–155; BP diastolic 59–76; PULSE 75–89; RESP 16–18; TEMP 97.5–98.2; O2SAT 95–100
[~2016-07-13 12:20] MED LIST changes: +ALBUAER3 INH; +DAPA1TAB PO; +FENO145T2 PO; +LABE200T2 PO; +NOVOLOGSS SQ; +SPIRCAP INH; +VALS1TAB65 PO
[2016-07-13] MEDS ORDERED: SODIUM CHLORIDE 0.9% FLUSH 10 ML FLUSH IVF PRN (12:45)
[2016-07-13] MEDS ORDERED: LANTUS2P SQ (12:51)
[2016-07-13 13:06] LABS: AUTOMATED NEUTROPHIL # 3.9 TH/MM3 (1.8-7.7); BASOPHIL # 0.1 TH/MM3 (0-0.2); BASOPHIL % 0.7 % (0.0-2.0); EOSINOPHIL # 0.1 TH/MM3 (0-0.4); EOSINOPHIL % 1.6 % (0.0-4.0); HEMATOCRIT 35.2 % (35.0-46.0); HEMO FLAGS DIFF FINAL; LYMPHOCYTE # 3.1 TH/MM3 (1.0-4.8); MEAN CELL VOLUME 88.3 FL (80.0-100.0); MEAN CORPUSCULAR HEMOGLOBIN 29.7 PG (27.0-34.0); MEAN CORPUSCULAR HGB CONC 33.6 % (32.0-36.0); MONO % 5.3 % (0.0-8.0); NEUT % 51.4 % (16.0-70.0); PLATELET COUNT 198 TH/MM3 (150-450); RED BLOOD COUNT 3.98 MIL/MM3 (4.00-5.30); RED CELL DISTRIBUTION WIDTH 13.6 % (11.6-17.2); WHITE BLOOD COUNT 7.5 TH/MM3 (4.0-11.0)
--- NOTE | 2016-07-13 13:07 | PD ---
HPI Chief Complaint: Pain: Acute or Chronic Time Seen by Provider: 12:40 Travel History International Travel<30 days: No Contact w/Intl Traveler<30days: No Traveled to known affect area: No History of Present Illness HPI This is a 50-year-old female with history of coronary artery disease, hypertension, anxiety, COPD, diabetes, congestive heart failure who presents for evaluation of left arm pain. Symptoms started one month ago. She describes it as an aching pain in the proximal aspect left arm, shoulder, trapezius region which is constant. No obvious aggravating or alleviating factors. She says it feels similar to when she required CABG in 2011. She was seen yesterday by the nurse practitioner who works with her professor of biochemistry Dr. Bella and referred to the emergency room for cardiac workup given her history of coronary artery disease. The patient denies any chest pain, shortness of breath, nausea, vomiting neck pain, numbness or tingling in the upper extremities.. She denies any activities which could have injured her left arm. Per chart review the patient was seen here on June 21, less than a month ago, for workup of chest pain with negative troponins, nonischemic EKGs. No other complaints. PFSH Past Medical History Hx Anticoagulant Therapy: Yes Asthma: Yes Autoimmune Disease: No Blood Disorders: No Anxiety: Yes Depression: No Heart Rhythm Problems: Yes (EPISODE OF UNSUSTAINED VTACH ON PREVIOUS ADMISSION) Cancer: No Cardiac Catheterization: Yes Cardiovascular Problems: Yes (CABG) High Cholesterol: Yes Chest Pain: Yes Congestive Heart Failure: Yes COPD: Yes Cerebrovascular Accident: No Coronary Artery Disease: Yes Diabetes: Yes (METFORMIN 07/12/16 2200) Diminished Hearing: No Endocrine: Yes Gastrointestinal Disorders: No GERD: Yes Genitourinary: Yes Headaches: No Heparin Induced Thrombocytopen: No Hypertension: Yes Immune Disorder: No Implanted Vascular Access Dvce: No Musculoskeletal: No Neurologic: No Psychiatric: No Reproductive: Yes (HYSTERECTOMY) Respiratory: Yes (ASTHMA, COPD) Migraines: No Myocardial Infarction: Yes Pneumonia: Yes Seizures: No Sleep Apnea: No Thyroid Disease: No Tetanus Vaccination: > 5 Years Influenza Vaccination: Yes ?: Not Menopausal: Yes : 4 Para: 4 Tubal Ligation: Yes Past Surgical History Abdominal Surgery: No Cardiac Surgery: Yes (TRIPLE BYPASS 2011) Coronary Artery Bypass Graft: Yes (CABG X 23 NOV 2011) Coronary Stent: Yes Ear Surgery: No Endocrine Surgery: No Eye Surgery: No Genitourinary Surgery: No Gynecologic Surgery: Yes (HYSTERECTOMY, TUBaL LIGATION) Hysterectomy: Yes Neurologic Surgery: No Oral Surgery: No Thoracic Surgery: No Other Surgery: Yes (R HAND ) Social History Alcohol Use: No Tobacco Use: Yes Substance Use: No Allergies-Medications (Allergen,Severity, Reaction): Coded Allergies: FREDRICK Inhibitors (Verified Allergy, Severe, Swelling, 07/13/16) ANGIOEDEMA TO ENALIPRIIL *MDRO Multi-Drug Resistant Organism (Verified Allergy, Unknown, 07/13/16) MRSA Reported Meds & Prescriptions Reported Meds & Active Scripts Active Furosemide 40 Mg Tab 20 Mg PO DAILY Decrease lasix dose from 40mg daily to 20mg daily. Re-start Lasix 20mg daily on Tuesday 03/21 Ventolin Hfa 18 GM Inh (Albuterol Sulfate) 90 Mcg/Act Aer 2 Puff INH Q4H PRN Metoprolol Tartrate 25 Mg Tab 25 Mg PO Q12H Reported Lantus Inj (Insulin Glargine) 1,000 Unit/10 Ml Vial 55 Units SQ DAILY Proair Hfa 8.5 GM Inh (Albuterol Sulfate) 90 Mcg/Act Aer 1 Puff INH Q4H PRN 108 mcg/actuation Valsartan 160 Mg Tab 160 Mg PO BID Farxiga (Dapagliflozin) 5 Mg Tab 5 Mg PO DAILY Fenofibrate 145 Mg Tab 145 Mg PO DAILY Effient (Prasugrel) 10 Mg Tab 10 Mg PO DAILY Novolog Inj (Insulin Aspart) 100 Unit/Ml Inj 10 Unit SQ TIDAC Labetalol (Labetalol HCl) 200 Mg Tab 200 Mg PO BID Spiriva Handihaler (Tiotropium Inh) 18 Mcg Cap 18 Mcg INH DAILY 1 capsule = 18 mcg Spironolactone 50 Mg Tab 50 Mg PO DAILY Nitroglycerin SL (Nitroglycerin) 0.4 Mg Subl 0.4 Mg SL DIRECTED PRN ONE TABLET UNDER THE TONGUE NEEDED FOR CHEST PAIN, MAY REPEAT EVERY FIVE MINUTES FOR A TOTAL OF 3 DOSES OR CALL 911 IF NO RELIEF Metformin (Metformin HCl) 1,000 Mg Tab 1,000 Mg PO BIDPC With meals Hydralazine (Hydralazine HCl) 25 Mg Tab 25 Mg PO TID Take with a meal Atorvastatin (Atorvastatin Calcium) 80 Mg Tab 80 Mg PO HS Aspirin 81 (Aspirin) 81 Mg Tabdr 81 Mg PO DAILY Review of Systems Except as stated in HPI: all other systems reviewed are Neg Physical Exam Narrative GENERAL: Well-developed well-nourished female in no acute distress SKIN: Warm and dry. HEAD: Atraumatic. Normocephalic. EYES: Pupils equal and round. No scleral icterus. No injection or drainage. ENT: No nasal bleeding or discharge. Mucous membranes pink and moist. NECK: Trachea midline. No JVD. CARDIOVASCULAR: Regular rate and rhythm. No murmur appreciated. RESPIRATORY: No accessory muscle use. Clear to auscultation. Breath sounds equal bilaterally. GASTROINTESTINAL: Abdomen soft, non-tender, nondistended. Hepatic and splenic margins not palpable. MUSCULOSKELETAL: No obvious deformities. Somewhat reproducible tenderness to palpation to the left shoulder joint. There is some pain with range of motion against resistance utilizing the left shoulder. Full range of motion of the left and right upper extremity. No upper extremity edema. No lower extremity edema. NEUROLOGICAL: Awake and alert. No obvious cranial nerve deficits. Motor grossly within normal limits. Normal speech. PSYCHIATRIC: Appropriate mood and affect; insight and judgment normal. Data Data Last Documented VS Vital Signs Date Time Temp Pulse Resp B/P Pulse Ox O2 Delivery O2 Flow Rate FiO2 07/13/16 14:06 98.0 79 16 133/60 99 Room Air Orders Electrocardiogram (07/13/16 12:38) Basic Metabolic Panel (Bmp) (07/13/16 12:38) Ckmb (Isoenzyme) Profile (07/13/16 12:38) Complete Blood Count With Diff (07/13/16 12:38) Magnesium (Mg) (07/13/16 12:38) Prothrombin Time / Inr (Pt) (07/13/16 12:38) Act Partial Throm Time (Ptt) (07/13/16 12:38) Troponin I (07/13/16 12:38) Chest, Single Ap (07/13/16 12:38) Ecg Monitoring (07/13/16 12:38) Bilateral Bp Monitoring (07/13/16 12:38) Iv Access Insert/Monitor (07/13/16 12:38) Oximetry (07/13/16 12:38) Oxygen Administration (07/13/16 12:38) Sodium Chloride 0.9% Flush (Ns Flush) (07/13/16 12:45) Shoulder, Complete (>2vws) (07/13/16 ) CKMB (07/13/16 12:50) CKMB% (07/13/16 12:50) Aspirin Chew (Aspirin Chew) (07/13/16 14:15) Labs Laboratory Tests Test 07/13/16 12:50 White Blood Count 7.5 TH/MM3 Red Blood Count 3.98 MIL/MM3 Hemoglobin 11.8 GM/DL Hematocrit 35.2 % Mean Corpuscular Volume 88.3 FL Mean Corpuscular Hemoglobin 29.7 PG Mean Corpuscular Hemoglobin 33.6 % Concent Red Cell Distribution Width 13.6 % Platelet Count 198 TH/MM3 Mean Platelet Volume 10.8 FL Neutrophils (%) (Auto) 51.4 % Lymphocytes (%) (Auto) 41.0 % Monocytes (%) (Auto) 5.3 % Eosinophils (%) (Auto) 1.6 % Basophils (%) (Auto) 0.7 % Neutrophils # (Auto) 3.9 TH/MM3 Lymphocytes # (Auto) 3.1 TH/MM3 Monocytes # (Auto) 0.4 TH/MM3 Eosinophils # (Auto) 0.1 TH/MM3 Basophils # (Auto) 0.1 TH/MM3 CBC Comment DIFF FINAL Differential Comment Prothrombin Time 11.2 SEC Prothromb Time International 1.0 RATIO Ratio Activated Partial 25.0 SEC Thromboplast Time Sodium Level 139 MEQ/L Potassium Level 4.1 MEQ/L Chloride Level 104 MEQ/L Carbon Dioxide Level 25.0 MEQ/L Anion Gap 10 MEQ/L Blood Urea Nitrogen 28 MG/DL Creatinine 1.32 MG/DL Estimat Glomerular Filtration 51 ML/MIN Rate Random Glucose 307 MG/DL Calcium Level 9.4 MG/DL Magnesium Level 1.9 MG/DL Total Creatine Kinase 152 U/L Creatine Kinase MB 1.1 NG/ML Troponin I LESS THAN 0.02 NG/ML MDM Medical Decision Making Medical Screen Exam Complete: Yes Emergency Medical Condition: Yes Medical Record Reviewed: Yes Interpretation(s) EKG reveals sinus rhythm Differential Diagnosis Shoulder strain, cervical radiculopathy, tendinitis, acute coronary syndrome, anginal equivalent Narrative Course 50-year-old female with history of coronary disease presents after being referred by her professor of biochemistry's office for cardiac workup of left arm pain. Left arm pain has been constant for one month. Per chart review the patient was seen by her professor of biochemistry on June 30, 2016 which was 13 days ago. She had a exercise nuclear stress test revealing "medium area of moderate perfusion defect which appears fixed involving the inferior verdin. This perfusion abnormalities consistent with old infarct in his territory. Small area of trudi-infarct ischemia present." Recommendations were "continue medical therapy. If angina persists, we will consider cardiac cath." The patient's lab work and imaging studies of the interview. Upon reexamination the patient is denying any sort of pain in her arm currently. Her initial set of cardiac enzymes are negative and her EKG is nonischemic. I discussed the case thoroughly with the patient's professor of biochemistry Dr. Bella ( office #[phone]) and he is concerned that this is an anginal equivalent that is uncontrolled with current medical therapy and he would like the patient to be admitted for cardiac catheterization and cardiac consultation here. Discussed with the patient is agreeable at this time. Discussed with the resident who is agreeable with admission to Dr. Vega Procedures EKG Prior to Arrival: Yes Diagnosis Primary Impression: Left arm pain Additional Impression: Coronary artery disease Qualified Code: I25.119 - Coronary artery disease with angina pectoris, unspecified vessel or lesion type, unspecified whether lime or transplanted heart Admitting Information Admitting Physician Requests: Observation Blaze Paredes July 13, 2016 13:07 Admitting Information Admitting Physician Requests: Observation Blaze Paredes July 13, 2016 13:07
[2016-07-13 13:11] LABS: PROTHROMBIN TIME - PATIENT 11.2 SEC (9.8-11.6)
--- NOTE | 2016-07-13 13:24 | RADRPT ---
EXAM DATE/TIME: 07/13/2016 13:19 [facility] COMPARISON: No previous studies available for comparison. INDICATIONS : Left shoulder pain for several weeks. No known injury. MEDICAL HISTORY : Chronic obstructive pulmonary disease. Asthma. Hypertension. Myocardial infarction. SURGICAL HISTORY : CABG. ENCOUNTER: Initial ACUITY: 2 weeks PAIN SCORE: 10/10 LOCATION: Left shoulder. FINDINGS: Median sternotomy wires and clips are noted from previous CABG. There are hypertrophic changes of the acromioclavicular joint with osteophyte formation present. The glenohumeral joint is approximated. N o fracture or dislocation. CONCLUSION: Mild degenerative changes of the acromioclavicular joint. Romain Sandhu MD on July 13, 2016 at 13:22 Board Certified Radiologist. This report was verified electronically.
[2016-07-13 13:26] LABS: ANION GAP 10 MEQ/L (5-15); BLOOD UREA NITROGEN 28 MG/DL (7-18); CHLORIDE 104 MEQ/L (98-107); GLOMERULAR FILTRATION RATE 51 ML/MIN (>89); MAGNESIUM 1.9 MG/DL (1.5-2.5); POTASSIUM 4.1 MEQ/L (3.5-5.1); SODIUM (NA) 139 MEQ/L (136-145)
[2016-07-13 13:27] LABS: CREATINE KINASE 152 U/L (26-192)
--- NOTE | 2016-07-13 13:31 | RADRPT ---
EXAM DATE/TIME: 07/13/2016 13:17 [facility] COMPARISON: CHEST SINGLE AP, June 21, 2016, 2:53. INDICATIONS : Chest pain for several weeks. MEDICAL HISTORY : Chronic obstructive pulmonary disease. Asthma. Hypertension. Myocardial infarction. SURGICAL HISTORY : CABG. ENCOUNTER: Initial ACUITY: 2 weeks PAIN SCORE: 10/10 LOCATION: Bilateral chest FINDINGS: A single view of the chest demonstrates minimal densities in the left upper lobe and both lower lobes . Previous median sternotomy. Heart normal in size. Osseous structures are intact. CONCLUSION: 1. Densities in the left upper lobe and left lower lobe likely parenchymal scarring. 2. Right basilar subsegmental atelectasis Gordy Lynn MD on July 13, 2016 at 13:29 Board Certified Radiologist. This report was verified electronically.
[2016-07-13 13:40] LABS: CKMB 1.1 NG/ML (0.5-3.6)
[2016-07-13] MEDS ORDERED: ASPIRIN 81 MG CHEW TAB CHEW ONE (14:15)
--- NOTE | 2016-07-13 14:46 | HHI.HP ---
[facility] Service Family Medicine Primary Care Physician Grabiel Weiss Admission Diagnosis Left arm pain, CAD Diagnoses: International Travel<30 Days: No Contact w/Intl Traveler<30days: No Known Affected Area: No History of Present Illness Patient is a pleasant 50 year old woman with PMH significant for CAD s/p CABG, CHF (echo 02/16/16 w/ EF of 50%), HTN, DM, cigarette smoking, COPD who is referred to the ED under recommendation from her wellness guide Dr. Bella. The patient was seen by her wellness guide on 06/30/16, she had a nuclear stress test that showed a "medium area of moderate perfusion defect which appears fixed involving the inferior verdin consistent with old infarct in this territory." Stress test was also noted to show "small area of trudi-infarct ischemia present. " She presented to that visit with complaints of anginal pain, she stated this was mild in nature and exacerbated by exercise. She states the recommendations at that time were to continue medical therapy. She was reevaluated at her wellness guide's office yesterday, and states her chest pain was improved however she continues to have left upper arm and shoulder pain that has been ongoing for about the last month. Her EKG on presentation is in sinus rhythm, no obvious ST changes. Initial troponin < 0.02. She is currently denying chest pain. Continues to endorse left upper arm and shoulder pain, that is worse with movement and is worse on palpation. Denies diaphoresis, visual changes, or shortness of breath. Review of Systems Constitutional: DENIES: Fever, Chills, Change in appetite Eyes: DENIES: Blurred vision Respiratory: DENIES: Cough, Sputum production, Shortness of breath Cardiovascular: COMPLAINS OF: Chest pain (currently denying chest pain, but reports angina about 2 weeks ago) Gastrointestinal: DENIES: Abdominal pain, Black stools, Bloody stools, Constipation, Diarrhea, Nausea, Vomiting Neurologic: DENIES: Headache Past Family Social History Past Medical History CAD s/p CABG CHF (echo 02/16/16 w/ EF of 50%) HTN DM COPD Past Surgical History CABG Hysterectomy Tubal ligation Allergies: Coded Allergies: FREDRICK Inhibitors (Verified Allergy, Severe, Swelling, 07/13/16) ANGIOEDEMA TO ENALIPRIIL *MDRO Multi-Drug Resistant Organism (Verified Allergy, Unknown, 07/13/16) MRSA Family History Mother: at 73 years of age due to unspecified cancer, patient was in fpc when she Father: at about 75 years of age Social History Tobacco: 1/2 PPD for about 20 years Etoh: denies Illicit drugs: denies Lives in [place] in an apartment with granddaughter On disability Daughter lives in the area Physical Exam Vital Signs Vital Signs Date Time Temp Pulse Resp B/P Pulse Ox O2 Delivery O2 Flow Rate FiO2 07/13/16 14:06 98.0 79 16 133/60 99 Room Air 07/13/16 12:50 98 Room Air 07/13/16 12:50 17 98 Room Air 07/13/16 12:44 89 17 102/59 99 Room Air 127/67 07/13/16 12:21 97.5 88 18 155/71 96 Room Air Physical Exam GENERAL: NAD, lying comfortably in bed NEURO: AOx3. Normal speech. pen and pencil repairer grossly intact. SKIN: Warm and dry. No rashes or erythema. HEAD: Normocephalic. Atraumatic. EYES: PERRL. EOMI. No scleral icterus. No injection or drainage. ENT: No nasal drainage. Moist mucous membranes. No oral ulcers or lesions. NECK: Supple, trachea midline. No JVD. No carotid bruits. CARDIOVASCULAR: Regular rate and rhythm without murmurs, rubs, or gallops. Peripheral pulses 2+. Capillary refill < 2 seconds. RESPIRATORY: Breath sounds clear to auscultation and equal bilaterally, without wheezes, rales, or rhonchi. No accessory muscle use. GASTROINTESTINAL: Abdomen soft, nontender, nondistended, normal BS. No rebound tenderness. No guarding. MUSCULOSKELETAL: No edema, cyanosis, or clubbing. Normal range of motion. Pain with palpation of left shoulder joint. No edema. BACK: Nontender without obvious deformity. Laboratory Laboratory Tests Test 07/13/16 12:50 White Blood Count 7.5 Red Blood Count 3.98 Hemoglobin 11.8 Hematocrit 35.2 Mean Corpuscular Volume 88.3 Mean Corpuscular Hemoglobin 29.7 Mean Corpuscular Hemoglobin 33.6 Concent Red Cell Distribution Width 13.6 Platelet Count 198 Mean Platelet Volume 10.8 Neutrophils (%) (Auto) 51.4 Lymphocytes (%) (Auto) 41.0 Monocytes (%) (Auto) 5.3 Eosinophils (%) (Auto) 1.6 Basophils (%) (Auto) 0.7 Neutrophils # (Auto) 3.9 Lymphocytes # (Auto) 3.1 Monocytes # (Auto) 0.4 Eosinophils # (Auto) 0.1 Basophils # (Auto) 0.1 CBC Comment DIFF FINAL Differential Comment Prothrombin Time 11.2 Prothromb Time International 1.0 Ratio Activated Partial 25.0 Thromboplast Time Sodium Level 139 Potassium Level 4.1 Chloride Level 104 Carbon Dioxide Level 25.0 Anion Gap 10 Blood Urea Nitrogen 28 Creatinine 1.32 Estimat Glomerular Filtration 51 Rate Random Glucose 307 Calcium Level 9.4 Magnesium Level 1.9 Total Creatine Kinase 152 Creatine Kinase MB 1.1 Troponin I LESS THAN 0.02 Result Diagram: 07/13/16 1250 07/13/16 1250 Imaging Last 48 hours Impressions Chest X-Ray 07/13/16 1238 Signed Impressions: Service Date/Time: Wednesday, July 13, 2016 13:17 - CONCLUSION: 1. Densities in the left upper lobe and left lower lobe likely parenchymal scarring. 2. Right basilar subsegmental atelectasis Gordy Lynn MD Shoulder X-Ray 07/13/16 0000 Signed Impressions: Service Date/Time: Wednesday, July 13, 2016 13:19 - CONCLUSION: Mild degenerative changes of the acromioclavicular joint. Romain Sandhu MD Assessment and Plan Assessment and Plan Pleasant 50 year old woman with PMH significant for CAD s/p CABG, CHF (echo w/ EF of 50%), HTN, DM, cigarette smoking, COPD referred to ED by recommendation from her wellness guide Dr. Bella for a cardiac catheterization. Code Status Full code Problem List: (1) Hx of coronary artery disease Status: Chronic Plan: - Patient admitted under recommendation of her wellness guide Dr. Bella for cardiac catheterization - Initial troponin < 0.02 - Initial EKG is in sinus rhythm without ST changes - Trend EKGs and troponins q6h x2 - Cardiology consult - Patient started on heparin drip per protocol - NPO after MN - Start IVF with NS at maintenance rate at MN; patient does have CHF (last echo in EMR on 02/16/16 w/ EF of 50%) - Received aspirin 324 mg chew - Continue supplemental oxygen - CP has resolved - Continue aspirin 81 mg po daily - Continue atorvastatin 80 mg po hs - Last cardiac catheterization in EMR on 02/17/16: severe [place] coronary artery disease with 2 out of 3 grafts patent, elevated LVEDP of 31 (2) Left arm pain Status: Acute Plan: - Concern is pain is referred pain due to an ACS, vs muscle strain or rotator cuff tendinopathy - Shoulder x-ray shows mild degenerative changes of the acromioclavicular joint - Plan as above (3) Chest pain Status: Resolved Plan: - Now resolved - Plan as above (4) Elevated serum creatinine Status: Acute Plan: Cr 1.32 on admission; 0.86 in 02/16/16 Patient has a history of renal insufficiency per EMR Possibly acute on chronic Start IVF at midnight Continue to monitor (5) Hypertension Status: Chronic Plan: Continue home medications - Lasix 20 mg po daily - Hydralazine 25 mg po tid - Labetalol 200 mg po bid - Metoprolol 25 mg po q12h - Spironolactone 50 mg po daily - Valsartan 160 mg po bid Monitor vitals q4h (6) DM (diabetes mellitus) Status: Chronic Plan: Hold home medications Levemir 10 units subq hs Low-dose ISS Accuchecks ACHS (7) COPD (chronic obstructive pulmonary disease) Status: Chronic Plan: Continue home Spiriva (8) Nutrition, metabolism, and development symptoms Status: Acute Plan: Fluids as above Electrolytes within normal limits Diet: Heart healthy diet, NPO after midnight DVT prophylaxis: Heparin as above Physician Certification 2 Midnight Certification Type: Admission for Inpatient Services Order for Inpatient Services The services are ordered in accordance with Medicare regulations or non- Medicare payer requirements, as applicable. In the case of services not specified as inpatient-only, they are appropriately provided as inpatient services in accordance with the 2-midnight benchmark. Estimated LOS (days): 2 days is the estimated time the patient will need to remain in the hospital, assuming treatment plan goals are met and no additional complications. Post-Hospital Plan: Home Bola Parish MD R1 July 13, 2016 14:46
[2016-07-13] MEDS ORDERED: SODIUM CHLORIDE 0.9% FLUSH 10 ML FLUSH IV FLUSH PRN (15:15)
[2016-07-13] MEDS ORDERED: NALOXONE HCL 0.4 MG/ML AMP IV PRN (15:15)
[2016-07-13] MEDS ORDERED: NITROGLYCERIN 0.4 MG SL 25 TABS/BTL SL PRN (15:30)
[2016-07-13] MEDS: METOPROLOL TARTRATE 25 MG TAB PO SCH ×2 (15:38→22:55)
[2016-07-13] MEDS: SPIRONOLACTONE 50 MG TAB PO SCH (15:38)
[2016-07-13] MEDS: FUROSEMIDE 20 MG TAB PO SCH (15:38)
[2016-07-13] MEDS: ACETAMINOPHEN 325 MG TAB PO PRN ×2 (15:40→20:27)
[2016-07-13] MEDS: INSULIN ASPART SUPPLEMENTAL SCALE SQ SCH ×2 (15:46→23:29)
[2016-07-13] MEDS: TIOTROPIUM BROMIDE 18 MCG INH INH SCH (16:26)
[2016-07-13] MEDS ORDERED: HEPARIN-D5W INJ 250 ML IV SCH (17:00)
[2016-07-13] MEDS ORDERED: HEPARIN SODIUM - IV 10,000 UNITS/10 ML VIAL IV ONE (17:00)
[2016-07-13] MEDS: hydrALAZINE HCL 25 MG TAB PO SCH (18:26)
[2016-07-13] MEDS: ATORVASTATIN 80 MG TAB PO SCH (22:54)
[2016-07-13] MEDS: LABETALOL HCL 200 MG TAB PO SCH (22:55)
[2016-07-13] MEDS: VALSARTAN 160 MG TAB PO SCH (22:55)
[2016-07-13] MEDS: HEPARIN SODIUM - SQ 10,000 UNITS/ML VIAL SQ SCH (22:55)
[2016-07-13] MEDS ORDERED: HEPARIN SODIUM - IV 10,000 UNITS/10 ML VIAL IV PRN ×2 (23:00)
[2016-07-13] MEDS: INSULIN DETEMIR 100 UNITS/ML VIAL SQ SCH (23:30)
[2016-07-13] MEDS: SODIUM CHLORIDE 0.9% FLUSH 10 ML FLUSH IV FLUSH SCH (23:31)
[2016-07-13] MEDS: SODIUM CHLOR 0.9% 1000 ML INJ 1,000 ML IV SCH (23:59)
[2016-07-14] VITALS (12 sets, daily range): BP systolic 100–161; BP diastolic 69–83; PULSE 64–79; RESP 17–18; TEMP 97.5–98.7; O2SAT 93–97
[2016-07-14 04:30] LABS: AUTOMATED NEUTROPHIL # 4.4 TH/MM3 (1.8-7.7); BASOPHIL % 0.5 % (0.0-2.0); EOSINOPHIL # 0.1 TH/MM3 (0-0.4); EOSINOPHIL % 1.2 % (0.0-4.0); HEMATOCRIT 37.7 % (35.0-46.0); HEMO FLAGS DIFF FINAL; LYMPH % 38.5 % (9.0-44.0); LYMPHOCYTE # 3.1 TH/MM3 (1.0-4.8); MEAN CELL VOLUME 86.8 FL (80.0-100.0); MEAN CORPUSCULAR HEMOGLOBIN 29.3 PG (27.0-34.0); MEAN CORPUSCULAR HGB CONC 33.8 % (32.0-36.0); MONO % 5.3 % (0.0-8.0); NEUT % 54.5 % (16.0-70.0); PLATELET COUNT 206 TH/MM3 (150-450); RED BLOOD COUNT 4.35 MIL/MM3 (4.00-5.30); RED CELL DISTRIBUTION WIDTH 13.6 % (11.6-17.2)
[2016-07-14 04:47] LABS: BICARBONATE 23.2 MEQ/L (21.0-32.0); POTASSIUM 4.1 MEQ/L (3.5-5.1)
[2016-07-14] MEDS: HEPARIN SODIUM - SQ 10,000 UNITS/ML VIAL SQ SCH ×2 (05:59→21:28)
--- NOTE | 2016-07-14 06:00 | HHI.FPPN ---
Subjective Remarks Dinah Clark is a 50yo lady with medical history significant for CAD and CABG admitted for evaluation of chest pain. She was seen yesterday in the cellular phone repairer's office (Dr. Bella) where she reported that she continued to have left upper arm and shoulder pain x 1 month. This pain is worse with movement. No associated diaphoresis or palpitations. However, given her significant cardiac history, Dr. Bella recommended she present to the ER. For further details, please see resident H&P. This morning, she reports continued left shoulder pain, without radiation, described as sharp. She also had an episode of chest pain overnight, which resolved on its own. She has already been seen by cardiology, who recommends a cath ROS: + Left shoulder pain; + chest pain (none currently, but overnight). No diaphoresis. No lightheadedness. No SOB. No palpitations. All other systems reviewed are negative. PMH/PSxH/SocHx/FamHx: Per resident H&P. Significant for: CAD, HTN, DM II, COPD, CHF with last echo 50% on 02/16/16. She had a nuclear stress test on 06/30/16 which demonstrated a "medium area of moderate perfusion defect which appears fixed involving the inferior verdin consistent with old infarct in this territory." H/O CABG, JULIO and BTL. Mother from cancer. + tobacco use - 1/2 PPD x 20 years. No alcohol or recreational drug use. Lives with her granddaughter locally. Objective Vitals Vital Signs Date Time Temp Pulse Resp B/P Pulse Ox O2 Delivery O2 Flow Rate FiO2 07/14/16 04:27 97.5 71 17 100/71 95 07/14/16 00:21 98.2 78 17 121/69 93 07/13/16 21:34 16 07/13/16 20:19 98.1 75 18 148/66 100 07/13/16 17:21 98.2 75 17 153/68 95 07/13/16 16:00 78 17 149/76 99 Room Air 07/13/16 14:06 98.0 79 16 133/60 99 Room Air 07/13/16 12:50 98 Room Air 07/13/16 12:50 17 98 Room Air 07/13/16 12:44 89 17 102/59 99 Room Air 127/67 07/13/16 12:21 97.5 88 18 155/71 96 Room Air I/O 07/13/16 07/13/16 07/13/16 07/14/16 07/14/16 07/14/16 07:00 15:00 23:00 07:00 15:00 23:00 Intake Total 200 ml Balance 200 ml Intake Oral 200 ml Result Diagram: 07/14/16 0347 07/14/16 0347 Objective Remarks GENERAL: in NAD, no resp distress, nontoxic. Lying comfortably in bed. HEENT: NCAT, EOMI, no scleral icterus, no conjunctival injection. MMM. NECK: Supple, no meningeal signs. CV: RRR, S1 S2. No murmurs CHEST/PULM: CTAB, no crackles, no wheezes. + tenderness to palpation of sternum. ABD/GI: +BS, soft, nontender, nondistended EXT: 2+ DP pulses. No edema. No calf tenderness. + tenderness at left biceps tendon. NEURO: AWake, alert. Normal muscle tone. Grossly nonfocal. SKIN: No rashes, no jaundice. PSYCH: Mood and affect are appropriate. Speech fluent. Does not appear to respond to internal stimuli. A/P Assessment and Plan 50 year old woman with PMH significant for CAD s/p CABG, CHF (echo 02/16/16 w/ EF of 50%), HTN, DM, cigarette smoking, COPD referred to ED by recommendation from her cellular phone repairer Dr. Bella for a cardiac catheterization. Attending Attestation Patient seen, examined, and discussed with resident team. Problem List: (1) Chest pain Status: Resolved Plan: - Now resolved - Patient to cardiac catheterization today by cardiology. (2) Left arm pain Status: Acute Plan: - Concern is pain is referred pain due to an ACS, vs muscle strain or rotator cuff tendinopathy - Shoulder x-ray shows mild degenerative changes of the acromioclavicular joint - Plan as above Patient may also benefit from physical therapy as an outpatient. (3) Hx of coronary artery disease Status: Chronic Plan: Medical management of CAD. Cardiac cath as above. Appreciate cardiology. (4) Elevated serum creatinine Status: Resolved Plan: Cr 1.32 on admission; 0.86 in 02/16/16 Patient has a history of renal insufficiency per EMR Possibly acute on chronic kidney disease (5) Hypertension Status: Chronic Plan: Continue home medications - Lasix 20 mg po daily - Hydralazine 25 mg po tid - Labetalol 200 mg po bid - Metoprolol 25 mg po q12h - Spironolactone 50 mg po daily - Valsartan 160 mg po bid Monitor vitals q4h (6) DM (diabetes mellitus) Status: Chronic Plan: Hold home medications Levemir 10 units subq hs Low-dose ISS Accuchecks ACHS Hemoglobin a1c pending (7) COPD (chronic obstructive pulmonary disease) Status: Chronic Plan: Continue home Spiriva Maintaining oxygen saturation on room air. Problem Qualifiers (1) Hypertension: Qualified Code: I10 - Essential hypertension (2) DM (diabetes mellitus): Senia Vega MD July 14, 2016 06:00 Status: Chronic Plan: Continue home Spiriva Problem Qualifiers (1) DM (diabetes mellitus): Senia Vega MD July 14, 2016 06:00
[2016-07-14] MEDS: INSULIN ASPART SUPPLEMENTAL SCALE SQ SCH ×3 (07:00→21:31)
--- NOTE | 2016-07-14 07:09 | MB ---
cc: ANDREW WHEELER DO DATE OF CONSULTATION 07/13/2016 REASON FOR CONSULTATION Chest pain HISTORY OF PRESENT ILLNESS Dinah Clark is a pleasant 50-year-old female who presents to [facility] on July 13, 2016 due to chest pain. She was originally seen by her ui designer, Dr. Lee Bella. Because of her chest pain, he had her undergo an exercise nuclear stress test. During this, she was found to have a moderate perfusion defect which appears fixed involving the inferior wall with a small area of trudi-infarct ischemia. After seeing her back, she was still having chest pain, so she was sent to the emergency room. The last time that she had chest pain was the night before and she states that it was somewhat across the left side of her chest and felt like someone was hugging her, but also states that there is a sharp stabbing portion to it. In seeing her, she is currently chest pain-free and not shortness of breath. PAST MEDICAL HISTORY 1. Coronary artery disease 2. Congestive heart failure 3. Hypertension 4. Diabetes 5. COPD PAST SURGICAL HISTORY 1. Coronary artery bypass grafting (December 08, 2011) with SOLIS to LAD, saphenous vein graft to posterolateral obtuse marginal, saphenous vein graft to right coronary artery. 2. Cardiac catheterization (February 16, 2016) left main is patent with nonobstructive CAD. LAD is 100% occluded after the second septal. First diagonal is patent with nonobstructive CAD. Ramus has luminal irregularities throughout and a mid 60% lesion with TIM-III flow. Left circumflex is completely occluded in its mid segment. RCA is completely occluded proximally and is fed by collaterals coming from the left side. SOLIS to LAD is patent. Saphenous vein graft going to obtuse marginals patent and has a 90% long lesion in its proximal segment. SVG to RCA Is 100% occluded. PCI of SVG to obtuse marginal with two drug-eluting stents (4 x 28, 4 x 9). 3. Hysterectomy 4. Tubal ligation ALLERGIES FREDRICK INHIBITORS MEDICATIONS 1. Valsartan 160 mg b.i.d. 2. Spiriva 18 mcg daily 3. Albuterol 2 puffs every 4 hours as needed 4. Labetalol 200 mg b.i.d. 5. Metoprolol tartrate 25 mg every 12 hours 6. Metformin 1000 mg b.i.d. 7. Hydralazine 25 mg t.i.d. 8. Fenofibrate 145 mg daily 9. Lipitor 80 mg every night 10. NovoLog 10 units with meals 11. Jl 55 units daily 12. Lasix 20 mg daily 13. Spironolactone 50 mg daily 14. Nitro sublingual as needed 15. Aspirin 81 mg daily 16. Effient 10 mg daily 17. Farxiga 5 mg daily SOCIAL HISTORY The patient smokes a half-a-pack of cigarettes for about 20 years. Denies alcohol or drug abuse. FAMILY HISTORY Mother at the age of 73 due to cancer. Father at the age of 75. REVIEW OF SYSTEMS 14-systems were reviewed including osteopathic pertinent positives and negatives as above otherwise negative. PHYSICAL EXAMINATION VITAL SIGNS: Temperature 98.2, heart rate 75, blood pressure 153/68, respirations 17, pulse ox 95% on room air. GENERAL: The patient appears well in no acute stress. Alert awake and oriented x3. HEAD, EYES, EARS, NOSE, AND THROAT: Extraocular muscles intact. Mucous membranes moist. NECK: Supple. No JVD at 45 degrees. No carotid bruits heard bilaterally. Carotid upstroke is brisk in nature. HEART: Regular rate and rhythm. Positive first and second heart sounds with no murmurs, gallops or rubs. PMI is difficult to ascertain, but does not appear nondisplaced. LUNGS: Clear to auscultation bilaterally. No wheezes, rales or rhonchi. ABDOMEN: Soft, nontender, nondistended. No organomegaly noted. EXTREMITIES: Show no clubbing, cyanosis or edema. Femoral and distal pulses are intact bilaterally. NEUROLOGIC: No focal deficits. SKIN: Warm, dry and intact. OSTEOPATHIC: No kyphoscoliosis, lordosis or paraspinal tender points. LABORATORY FINDINGS Hemoglobin 11.8, hematocrit 35.2, platelets 198. Potassium 4.1, BUN 28, creatinine 1.32, troponin 0.02. Electrocardiogram (July 13, 2016 at 12:59) normal sinus rhythm, nonspecific ST-T wave changes. Nuclear stress test (June 30, [address] Bella's office) medium area of moderate perfusion defect which appears fixed involving the inferior wall with a small area of trudi-infarct ischemia. Echocardiogram (June 22, 2016) ejection fraction 55%, mild aortic valve sclerosis without stenosis, mild mitral regurgitation, mild tricuspid and pulmonic regurgitation. IMPRESSIONS 1. Chest pain somewhat atypical for coronary insufficiency, although similar to when she needed bypass surgery. 2. Abnormal nuclear stress test with a moderate perfusion defect which is mostly fixed in the inferior wall with small area of trudi-infarct ischemia. 3. History of coronary artery disease with recent stenting as above. 4. Chronic kidney disease 5. Hypertension 6. Diabetes mellitus 7. COPD RECOMMENDATIONS 1. Because of Ms. Clark's chest pain, as well as abnormal stress test, the recommendation is she undergoes cardiac catheterization. The risks, benefits and alternatives were explained to her and she consents as such. She will be n.p.o. after midnight. 2. We will stop her Metformin and this needs to be stopped for 48 hours post cardiac catheterization. 3. She was originally planned to be started on a heparin drip but as she is asymptomatic, I do not feel that this is absolutely necessary. If anything changes overnight including chest pain or an elevation of her troponin, then this may be reconsidered. 4. As far as her kidney disease, we will start her on light hydration overnight. 5. If there is no significant change in her coronary artery disease, I would attempt to increase her antianginal medications. 6. Further recommendations will be made after coronary visualization. Thank you for allowing me to see Dinah Clark. If there are any questions, please do not hesitate to call. Andrew Wheeler DO VGP/DJL /7:22 PM /6:45 AM
[2016-07-14] MEDS: SODIUM CHLOR 0.9% 1000 ML INJ 1,000 ML IV SCH ×2 (07:56→23:50)
[2016-07-14] MEDS: SPIRONOLACTONE 50 MG TAB PO SCH (09:00)
[2016-07-14] MEDS: SODIUM CHLORIDE 0.9% FLUSH 10 ML FLUSH IV FLUSH SCH ×2 (09:00→21:00)
[2016-07-14] MEDS: LABETALOL HCL 200 MG TAB PO SCH ×2 (09:16→21:32)
[2016-07-14] MEDS: FENOFIBRATE 145 MG TAB PO SCH (09:17)
[2016-07-14] MEDS: FUROSEMIDE 20 MG TAB PO SCH (09:18)
[2016-07-14] MEDS: ASPIRIN 81 MG CHEW TAB PO SCH (09:18)
[2016-07-14] MEDS: METOPROLOL TARTRATE 25 MG TAB PO SCH ×2 (09:18→21:32)
[2016-07-14] MEDS: hydrALAZINE HCL 25 MG TAB PO SCH ×2 (09:18→17:46)
[2016-07-14] MEDS: TIOTROPIUM BROMIDE 18 MCG INH INH SCH (09:19)
[2016-07-14] MEDS ORDERED: HEPARIN-NS/PF INJ 500 ML ONE (09:37)
[2016-07-14] MEDS ORDERED: HEPARIN SODIUM - IV 10,000 UNITS/10 ML VIAL ONE (09:39)
[2016-07-14] MEDS ORDERED: MIDAZOLAM HCL 2 MG/2 ML VIAL ONE (09:39)
[2016-07-14] MEDS ORDERED: VERAPAMIL HCL 5 MG/2 ML VIAL ONE (09:39)
[2016-07-14] MEDS ORDERED: PRASUGREL 10 MG TAB ONE (10:53)
[2016-07-14] MEDS ORDERED: ONDANSETRON HCL 4 MG/2 ML VIAL IV PRN (11:15)
--- NOTE | 2016-07-14 11:57 | PD.CARD.PN ---
Subjective Subjective Remarks Post-cath, doing well No chest pain, no shortness of breath Objective Medications Current Medications Medications (Trade) Dose Ordered Sig/Hill Route Start Time Stop Time Status Last Admin (NS 1000 ml Inj) 1,000 ml @ 126 mls/hr [id number] IV 07/13/16 23:59 07/13/16 23:59 (NS Flush) 2 ml UNSCH PRN IV FLUSH 07/13/16 15:15 (NS Flush) 2 ml BID IV FLUSH 07/13/16 21:00 07/13/16 23:31 (Tylenol) 650 mg Q4H PRN PO 07/13/16 15:15 07/13/16 20:27 (Narcan Inj) 0.4 mg UNSCH PRN IV 07/13/16 15:15 (Lipitor) 80 mg HS PO 07/13/16 21:00 07/13/16 22:54 (Tricor) 145 mg DAILY PO 07/14/16 09:00 07/14/16 09:17 (Lasix) 20 mg DAILY PO 07/13/16 15:30 07/14/16 09:18 (Apresoline) 25 mg TID PO 07/13/16 18:00 07/14/16 09:18 (Trandate) 200 mg BID PO 07/13/16 21:00 07/14/16 09:16 (Lopressor) 25 mg Q12HR PO 07/13/16 15:30 07/14/16 09:18 (Nitrostat Sl) 0.4 mg Q8HR PRN SL 07/13/16 15:30 (Aldactone) 50 mg DAILY PO 07/13/16 15:30 07/13/16 15:38 (Spiriva Inh) 18 mcg DAILY INH 07/13/16 15:30 07/14/16 09:19 (Diovan) 160 mg BID PO 07/13/16 21:00 07/13/16 22:55 (Aspirin Chew) 81 mg DAILY PO 07/14/16 09:00 07/14/16 09:18 (Levemir Inj) 10 units HS SQ 07/13/16 21:00 07/13/16 23:30 (Heparin Inj) 5,000 units Q8HR SQ 07/13/16 22:00 07/13/16 22:55 (Effient) 10 mg DAILY PO 07/15/16 09:00 (Imdur) 30 mg DAILY@07 PO 07/15/16 07:00 (Zofran Inj) 4 mg Q4H PRN IV 07/14/16 11:15 Vital Signs / I&O Vital Signs Date Time Temp Pulse Resp B/P Pulse Ox O2 Delivery O2 Flow Rate FiO2 07/14/16 07:50 97.8 64 18 161/75 95 07/14/16 04:27 97.5 71 17 100/71 95 07/14/16 00:21 98.2 78 17 121/69 93 07/13/16 21:34 16 07/13/16 20:19 98.1 75 18 148/66 100 07/13/16 17:21 98.2 75 17 153/68 95 07/13/16 16:00 78 17 149/76 99 Room Air 07/13/16 14:06 98.0 79 16 133/60 99 Room Air 07/13/16 12:50 98 Room Air 07/13/16 12:50 17 98 Room Air 07/13/16 12:44 89 17 102/59 99 Room Air 127/67 07/13/16 12:21 97.5 88 18 155/71 96 Room Air I/O 07/13/16 07/13/16 07/13/16 07/14/16 07/14/16 07/14/16 07:00 15:00 23:00 07:00 15:00 23:00 Intake Total 200 ml Balance 200 ml Intake Oral 200 ml Physical Exam GENERAL: NAD, AAOx3 SKIN: Warm and dry. HEAD: Atraumatic. Normocephalic. EYES: Pupils equal and round. No scleral icterus. No injection or drainage. ENT: No nasal bleeding or discharge. Mucous membranes pink and moist. NECK: Trachea midline. No JVD. CARDIOVASCULAR: Regular rate and rhythm. RESPIRATORY: No accessory muscle use. Clear to auscultation. Breath sounds equal bilaterally. GASTROINTESTINAL: Abdomen soft, non-tender, nondistended. Hepatic and splenic margins not palpable. MUSCULOSKELETAL: Extremities without clubbing, cyanosis, or edema. No obvious deformities. Right femoral no hematoma NEUROLOGICAL: Awake and alert. No obvious cranial nerve deficits. Motor grossly within normal limits. Five out of 5 muscle strength in the arms and legs. Normal speech. PSYCHIATRIC: Appropriate mood and affect; insight and judgment normal. Laboratory Laboratory Tests Test 07/13/16 07/13/16 07/14/16 07/14/16 12:50 19:43 00:28 03:47 White Blood Count 7.5 TH/MM3 8.0 TH/MM3 Red Blood Count 3.98 MIL/MM3 4.35 MIL/MM3 Hemoglobin 11.8 GM/DL 12.7 GM/DL Hematocrit 35.2 % 37.7 % Mean Corpuscular Volume 88.3 FL 86.8 FL Mean Corpuscular Hemoglobin 29.7 PG 29.3 PG Mean Corpuscular Hemoglobin 33.6 % 33.8 % Concent Red Cell Distribution Width 13.6 % 13.6 % Platelet Count 198 TH/MM3 206 TH/MM3 Mean Platelet Volume 10.8 FL 10.5 FL Neutrophils (%) (Auto) 51.4 % 54.5 % Lymphocytes (%) (Auto) 41.0 % 38.5 % Monocytes (%) (Auto) 5.3 % 5.3 % Eosinophils (%) (Auto) 1.6 % 1.2 % Basophils (%) (Auto) 0.7 % 0.5 % Neutrophils # (Auto) 3.9 TH/MM3 4.4 TH/MM3 Lymphocytes # (Auto) 3.1 TH/MM3 3.1 TH/MM3 Monocytes # (Auto) 0.4 TH/MM3 0.4 TH/MM3 Eosinophils # (Auto) 0.1 TH/MM3 0.1 TH/MM3 Basophils # (Auto) 0.1 TH/MM3 0.0 TH/MM3 CBC Comment DIFF FINAL DIFF FINAL Differential Comment Prothrombin Time 11.2 SEC Prothromb Time International 1.0 RATIO Ratio Activated Partial 25.0 SEC Thromboplast Time Sodium Level 139 MEQ/L 139 MEQ/L Potassium Level 4.1 MEQ/L 4.1 MEQ/L Chloride Level 104 MEQ/L 109 MEQ/L Carbon Dioxide Level 25.0 MEQ/L 23.2 MEQ/L Anion Gap 10 MEQ/L 7 MEQ/L Blood Urea Nitrogen 28 MG/DL 20 MG/DL Creatinine 1.32 MG/DL 0.98 MG/DL Estimat Glomerular Filtration 51 ML/MIN 72 ML/MIN Rate Random Glucose 307 MG/DL 168 MG/DL Calcium Level 9.4 MG/DL 9.2 MG/DL Magnesium Level 1.9 MG/DL Total Creatine Kinase 152 U/L Creatine Kinase MB 1.1 NG/ML Troponin I LESS THAN 0.02 LESS THAN 0.02 LESS THAN 0.02 NG/ML NG/ML NG/ML Assessment and Plan Problem List: (1) Atypical chest pain (2) Hx of CABG (3) Tobacco abuse (4) COPD (chronic obstructive pulmonary disease) (5) Hyperlipidemia (6) Hypertension (7) Hx of coronary artery disease Assessment and Plan 1) Post-cath, multi-vessel CAD for medical management 2) Con't ASA/Effient/BB/Statin, added Imdur 3) Cardiovascularly stable for discharge tonight or tomorrow morning 4) Follow up with Dr. Lee Bella, her arrow point attacher 5) Will see PRN, call with questions Andrew Jenkins DO July 14, 2016 11:57
[2016-07-14] MEDS ORDERED: ISOS30TA3 PO (13:25)
--- NOTE | 2016-07-14 13:26 | HHI.DCPOC ---
Discharge Care Plan Diagnosis: (1) CAD (coronary artery disease) Goals to Promote Your Health * To prevent worsening of your condition and complications * To maintain your health at the optimal level Directions to Meet Your Goals Take your medications as prescribed Follow your dietary instruction Follow activity as directed Keep your appointments as scheduled Take your immunizations and boosters as scheduled If your symptoms worsen call your PCP, if no PCP go to Urgent Care Center or Emergency Room Smoking is Dangerous to Your Health. Avoid second hand smoke Call the 24-hour hour crisis hotline for domestic abuse at Keith Jones MD R2 July 14, 2016 13:26
[2016-07-14] MEDS ORDERED: IOHEXOL 350 MG/ML 100 ML BTL (for Cath Lab) OTHER ONE (14:42)
--- NOTE | 2016-07-14 17:05 | EKG ---
Date Performed: 07/14/2016 Time Performed: 01:36:34 PTAGE: 50 years EKG: Sinus rhythm WITH SINUS ARRHYTHMIA NONSPECIFIC ST & T-WAVE ABNORMALITY BORDERLINE ECG PREVIOUS TRACING : 07/13/2016 19.05 Compared to prior tracing no significant change DOCTOR: Andrew Jenkins Interpretating Date/Time 07/14/2016 17:04:45
--- NOTE | 2016-07-14 17:20 | EKG ---
Date Performed: 07/13/2016 Time Performed: 19:05:35 PTAGE: 50 years EKG: Sinus rhythm MODERATE INTRAVENTRICULAR CONDUCTION DELAY NONSPECIFIC T-WAVE ABNORMALITY ABNORMAL ECG PREVIOUS TRACING : 07/13/2016 12.59 Compared to prior tracing no significant change DOCTOR: Andrew Jenkins Interpretating Date/Time 07/14/2016 17:20:06
--- NOTE | 2016-07-14 17:37 | EKG ---
Date Performed: 07/13/2016 Time Performed: 12:59:47 PTAGE: 50 years EKG: Sinus rhythm NONSPECIFIC T-WAVE ABNORMALITY BORDERLINE ECG PREVIOUS TRACING : 06/21/2016 05.52 Compared to prior tracing no significant change DOCTOR: Andrew Jenkins Interpretating Date/Time 07/14/2016 17:36:48
[2016-07-14] MEDS: INSULIN DETEMIR 100 UNITS/ML VIAL SQ SCH (21:00)
[2016-07-14] MEDS: ATORVASTATIN 80 MG TAB PO SCH (21:32)
[2016-07-14] MEDS: VALSARTAN 160 MG TAB PO SCH (21:32)
[2016-07-14 21:35] LABS: HEMOGLOBIN A1a 1.2 %; HEMOGLOBIN A1b 1.1 %; HEMOGLOBIN Ao 76.5 %; HEMOGLOBIN F 2.7 %; HEMOGLOBIN LA1C 2.7 %; HEMOGLOBIN P3 6.6 %
[2016-07-15] VITALS (9 sets, daily range): BP systolic 120–130; BP diastolic 65–68; PULSE 66–81; RESP 20; TEMP 98.1–98.3; O2SAT 92–100
[2016-07-15] MEDS: HEPARIN SODIUM - SQ 10,000 UNITS/ML VIAL SQ SCH (05:30)
[2016-07-15 05:46] LABS: AUTOMATED NEUTROPHIL # 2.6 TH/MM3 (1.8-7.7); BASOPHIL % 0.5 % (0.0-2.0); EOSINOPHIL # 0.1 TH/MM3 (0-0.4); EOSINOPHIL % 1.8 % (0.0-4.0); HEMATOCRIT 36.7 % (35.0-46.0); HEMO FLAGS DIFF FINAL; LYMPH % 44.8 % (9.0-44.0); LYMPHOCYTE # 2.5 TH/MM3 (1.0-4.8); MEAN CELL VOLUME 86.8 FL (80.0-100.0); MEAN CORPUSCULAR HEMOGLOBIN 29.2 PG (27.0-34.0); MEAN CORPUSCULAR HGB CONC 33.7 % (32.0-36.0); MONO % 6.1 % (0.0-8.0); NEUT % 46.8 % (16.0-70.0); PLATELET COUNT 179 TH/MM3 (150-450); RED BLOOD COUNT 4.23 MIL/MM3 (4.00-5.30); RED CELL DISTRIBUTION WIDTH 13.5 % (11.6-17.2); WHITE BLOOD COUNT 5.6 TH/MM3 (4.0-11.0)
[2016-07-15 05:56] LABS: BICARBONATE 23.7 MEQ/L (21.0-32.0)
[2016-07-15] MEDS: INSULIN ASPART SUPPLEMENTAL SCALE SQ SCH ×2 (06:14→11:50)
[2016-07-15] MEDS ORDERED: ISOSORBIDE MONONITRATE 30 MG TAB PO SCH (07:00)
[2016-07-15] MEDS ORDERED: PRASUGREL 10 MG TAB PO SCH (09:00)
[2016-07-15] MEDS: SODIUM CHLORIDE 0.9% FLUSH 10 ML FLUSH IV FLUSH SCH (09:00)
--- NOTE | 2016-07-15 09:46 | HHI.FPPN ---
Subjective Remarks Patient is doing good this morning. She would like to be discharged. Denies chest pain, nausea, vomiting, fever, chills, diarrhea. She would like to go back to cardiac rehabilitation at the [address] [place] [address] if possible. (Keith Jones MD R2) Objective Vitals Vital Signs Date Time Temp Pulse Resp B/P Pulse Ox O2 Delivery O2 Flow Rate FiO2 07/15/16 05:03 71 07/15/16 04:16 66 07/15/16 03:39 98.3 71 130/68 100 07/15/16 03:36 68 07/15/16 02:00 66 07/15/16 01:00 72 07/15/16 00:00 66 07/14/16 23:30 98.4 70 134/76 96 07/14/16 23:00 70 07/14/16 22:00 64 07/14/16 21:00 70 07/14/16 20:30 97 21 07/14/16 20:00 64 07/14/16 19:14 98.7 66 156/70 97 07/14/16 19:00 79 07/14/16 17:10 98.4 67 17 153/83 97 07/14/16 12:20 97 Room Air I/O 07/14/16 07/14/16 07/14/16 07/15/16 07/15/16 07/15/16 07:00 15:00 23:00 07:00 15:00 23:00 Intake Total 200 ml 240 ml Balance 200 ml 240 ml Intake Oral 200 ml 240 ml # Voids 3 # Bowel Movements 1 (Keith Jones MD R2) Result Diagram: 07/15/1652607/15/16526 Objective Remarks GENERAL: in NAD, no resp distress. Lying comfortably in bed. HEENT: NCAT, EOMI, no scleral icterus, no conjunctival injection. MMM. NECK: Supple, no meningeal signs. CV: RRR, S1 S2. No murmurs CHEST/PULM: CTAB, no crackles, no wheezes. + tenderness to palpation of sternum. ABD/GI: +BS, soft, nontender, nondistended EXT: 2+ DP pulses. No edema. No calf tenderness. + tenderness at left biceps tendon. NEURO: AWake, alert. Normal muscle tone. Grossly nonfocal. SKIN: No rashes, no jaundice. PSYCH: Mood and affect are appropriate. Speech fluent. Does not appear to respond to internal stimuli. (Keith Jones MD R2) A/P Assessment and Plan 50 year old woman with PMH significant for CAD s/p CABG, CHF (echo 02/16/16 w/ EF of 50%), HTN, DM, cigarette smoking, COPD referred to ED by recommendation from her relay repairer Dr. Bella for a cardiac catheterization. Discharge Planning Today (Keith Jones MD R2) Attending Attestation Patient seen, examined, discussed with resident team. I agree with assessment and management as documented and discussed with me. Pt reports chest pain has resolved. Some Left shoulder pain, associated with MSK exam (tender to touch at biceps tendon). Discharge home today, with imdur - discussed risks, benefits, and side effects of this medication. Set up outpt cardiac rehab and PT. (Senia Vega MD) Problem List: (1) Chest pain Status: Resolved Plan: - Now resolved Cardiology consulted Post catheter. Multivessel CAD. Continue medical management. Continue aspirin/effient/beta milly/statin. Imdur added. Cardiac rehabilitation as an outpatient. Case management helping. Follow up with Dr. Lee Bella, her relay repairer (2) Left arm pain Status: Resolved Plan: - Concern is pain is referred pain due to an ACS, vs muscle strain or rotator cuff tendinopathy - Shoulder x-ray shows mild degenerative changes of the acromioclavicular joint Patient may also benefit from physical therapy as an outpatient. (3) Hx of coronary artery disease Status: Chronic Plan: Medical management of CAD. Cardiac cath as above. (4) Elevated serum creatinine Status: Resolved Plan: Cr 1.32 on admission; 0.86 in 02/16/16 Patient has a history of renal insufficiency per EMR Possibly acute on chronic kidney disease (5) Hypertension Status: Chronic Plan: Continue home medications - Lasix 20 mg po daily - Hydralazine 25 mg po tid - Labetalol 200 mg po bid - Metoprolol 25 mg po q12h - Spironolactone 50 mg po daily - Valsartan 160 mg po bid Monitor vitals q4h (6) DM (diabetes mellitus) Status: Chronic Plan: Hold home medications Levemir 10 units subq hs Low-dose ISS Accuchecks ACHS Hemoglobin a1c 10.1 (7) COPD (chronic obstructive pulmonary disease) Status: Chronic Plan: Continue home Spiriva Maintaining oxygen saturation on room air. (Keith Jones MD R2) Problem Qualifiers (1) Hypertension: Qualified Code: I10 - Essential hypertension (2) DM (diabetes mellitus): Keith Jones MD R2 July 15, 2016 09:46 Senia Vega MD July 15, 2016 15:25
[2016-07-15] MEDS: METOPROLOL TARTRATE 25 MG TAB PO SCH (09:50)
[2016-07-15] MEDS: ASPIRIN 81 MG CHEW TAB PO SCH (09:50)
[2016-07-15] MEDS: FENOFIBRATE 145 MG TAB PO SCH (09:51)
[2016-07-15] MEDS: VALSARTAN 160 MG TAB PO SCH (09:51)
[2016-07-15] MEDS: LABETALOL HCL 200 MG TAB PO SCH (09:51)
[2016-07-15] MEDS: FUROSEMIDE 20 MG TAB PO SCH (09:52)
[2016-07-15] MEDS: SPIRONOLACTONE 50 MG TAB PO SCH (09:52)
[2016-07-15] MEDS: hydrALAZINE HCL 25 MG TAB PO SCH ×2 (09:52→13:24)
--- NOTE | 2016-07-17 10:11 | HHI.DS ---
Discharge Summary Admission Date July 13, 2016 at 14:17 Discharge Date: July 15, 2016 Admitting Diagnosis Left arm pain, CAD (1) Chest pain Diagnosis: Principal Plan: - Now resolved Cardiology consulted Post catheter. Multivessel CAD. Continue medical management. Continue aspirin/effient/beta milly/statin. Imdur added. Cardiac rehabilitation as an outpatient. Case management helping. Follow up with Dr. Lee Bella, her glass products inspector (2) Left arm pain Diagnosis: Secondary Plan: - Concern is pain is referred pain due to an ACS, vs muscle strain or rotator cuff tendinopathy - Shoulder x-ray shows mild degenerative changes of the acromioclavicular joint Patient may also benefit from physical therapy as an outpatient. (3) Hx of coronary artery disease Diagnosis: Secondary Plan: Medical management of CAD. Cardiac cath as above. (4) Elevated serum creatinine Diagnosis: Secondary Plan: Cr 1.32 on admission; 0.86 in 02/16/16 Patient has a history of renal insufficiency per EMR Possibly acute on chronic kidney disease (5) Hypertension Diagnosis: Secondary Plan: Continue home medications - Lasix 20 mg po daily - Hydralazine 25 mg po tid - Labetalol 200 mg po bid - Metoprolol 25 mg po q12h - Spironolactone 50 mg po daily - Valsartan 160 mg po bid Monitor vitals q4h (6) DM (diabetes mellitus) Diagnosis: Secondary Plan: Hold home medications Levemir 10 units subq hs Low-dose ISS Accuchecks ACHS Hemoglobin a1c 10.1 (7) COPD (chronic obstructive pulmonary disease) Diagnosis: Secondary Plan: Continue home Spiriva Maintaining oxygen saturation on room air. Consultants Cardiology Procedures Cardiac catheterization Brief History Patient is a pleasant 50 year old woman with PMH significant for CAD s/p CABG, CHF (echo 02/16/16 w/ EF of 50%), HTN, DM, cigarette smoking, COPD who is referred to the ED under recommendation from her glass products inspector Dr. Bella. The patient was seen by her glass products inspector on 06/30/16, she had a nuclear stress test that showed a "medium area of moderate perfusion defect which appears fixed involving the inferior verdin consistent with old infarct in this territory." Stress test was also noted to show "small area of trudi-infarct ischemia present. " She presented to that visit with complaints of anginal pain, she stated this was mild in nature and exacerbated by exercise. She states the recommendations at that time were to continue medical therapy. She was reevaluated at her glass products inspector's office yesterday, and states her chest pain was improved however she continues to have left upper arm and shoulder pain that has been ongoing for about the last month. Her EKG on presentation is in sinus rhythm, no obvious ST changes. Initial troponin < 0.02. She is currently denying chest pain. Continues to endorse left upper arm and shoulder pain, that is worse with movement and is worse on palpation. Denies diaphoresis, visual changes, or shortness of breath. CBC/BMP: 07/15/16 0527 07/15/16 0527 Significant Findings Laboratory Tests Test 07/15/16 05:27 Lymphocytes (%) (Auto) 44.8 % (9.0-44.0) Chloride Level 110 MEQ/L (98-107) Estimat Glomerular Filtration 77 ML/MIN (>89) Rate Random Glucose 182 MG/DL (74-106) Imaging Last Impressions Chest X-Ray 07/13/16 1238 Signed Impressions: Service Date/Time: Wednesday, July 13, 2016 13:17 - CONCLUSION: 1. Densities in the left upper lobe and left lower lobe likely parenchymal scarring. 2. Right basilar subsegmental atelectasis Gordy Lynn MD Shoulder X-Ray 07/13/16 0000 Signed Impressions: Service Date/Time: Wednesday, July 13, 2016 13:19 - CONCLUSION: Mild degenerative changes of the acromioclavicular joint. Romain Sandhu MD PE at Discharge GENERAL: in NAD, no resp distress. Lying comfortably in bed. HEENT: NCAT, EOMI, no scleral icterus, no conjunctival injection. MMM. NECK: Supple, no meningeal signs. CV: RRR, S1 S2. No murmurs CHEST/PULM: CTAB, no crackles, no wheezes. + tenderness to palpation of sternum. ABD/GI: +BS, soft, nontender, nondistended EXT: 2+ DP pulses. No edema. No calf tenderness. + tenderness at left biceps tendon. NEURO: AWake, alert. Normal muscle tone. Grossly nonfocal. SKIN: No rashes, no jaundice. PSYCH: Mood and affect are appropriate. Speech fluent. Does not appear to respond to internal stimuli. Hospital Course Patient was taken to cardiac catheterization by Dr. Jenkins; she was found to have multivessel disease. The decision was made to treat her medically. She was continued on her home medications aspirin, Effient, beta milly, statin. In addition, Imdur was added. She was instructed to follow with her glass products inspector Dr. Lee Bella. The patient additionally had left shoulder pain. Concern was for cardiac etiology. However, this was felt to be unlikely. Shoulder x-ray demonstrated acromioclavicular arthritis. She was instructed to follow with physical therapy as an outpatient. Case management helped provide the patient with cardiac rehabilitation at the [address] [place] [id number]. Pt Condition on Discharge: Fair Discharge Disposition: Discharge Home Discharge Instructions DIET: Follow Instructions for: Heart Healthy Diet, Diabetic Diet Activities you can perform: Weight Bearing as [place] Follow up Referrals: Cardiology - 1 Week with YANETH PCP Follow-up - 2 Weeks New Medications: Isosorbide Mononitrate ER (Isosorbide Mononitrate ER) 30 Mg Irma 30 MG PO DAILY@07 #30 TAB Continued Medications: Albuterol 18 GM Inh (Ventolin Hfa 18 GM Inh) 90 Mcg/Act Aer 2 PUFF INH Q4H PRN SHORTNESS OF BREATH #1 Ref 0 INHALER Albuterol 8.5 GM Inh (Proair Hfa 8.5 GM Inh) 90 Mcg/Act Aer 1 PUFF INH Q4H 108 mcg/actuation PRN SHORTNESS OF BREATH #1 Ref [address] (Aspirin 81) 81 Mg Tabdr 81 MG PO DAILY Ref 0 TAB Atorvastatin (Atorvastatin) 80 Mg Tab 80 MG PO HS Cholesterol Management #30 Ref 0 TAB Dapagliflozin (Farxiga) 5 Mg Tab 5 MG PO DAILY Blood Sugar Management #30 Ref 0 TAB Fenofibrate (Fenofibrate) 145 Mg Tab 145 MG PO DAILY #30 Ref 0 TAB Furosemide (Furosemide) 40 Mg Tab 20 MG PO DAILY Decrease lasix dose from 40mg daily to 20mg daily. Re-start Lasix 20mg daily on Tuesday 03/21 CHF #30 Ref 0 TAB Hydralazine (Hydralazine) 25 Mg Tab 25 MG PO TID Take with a meal Blood Pressure Management #90 Ref 0 TAB Insulin Aspart Inj (Novolog Inj) 100 Unit/Ml Inj 10 UNIT SQ TIDAC Insulin Glargine Inj (Lantus Inj) 1,000 Unit/10 Ml Vial 55 UNITS SQ DAILY Blood Sugar Management Ref 0 VIAL Labetalol (Labetalol) 200 Mg Tab 200 MG PO BID Blood Pressure Management Ref 0 TAB Metformin (Metformin) 1,000 Mg Tab 1000 MG PO BIDPC With meals Blood Sugar Management #60 Ref 0 TAB Metoprolol Tartrate (Metoprolol Tartrate) 25 Mg Tab 25 MG PO Q12H heart #60 TAB Nitroglycerin SL (Nitroglycerin SL) 0.4 Mg Subl 0.4 MG SL DIRECTED ONE TABLET UNDER THE TONGUE NEEDED FOR CHEST PAIN, MAY REPEAT EVERY FIVE MINUTES FOR A TOTAL OF 3 DOSES OR CALL 911 IF NO RELIEF PRN CHEST PAIN #100 Ref 0 TAB.SL Prasugrel (Effient) 10 Mg Tab 10 MG PO DAILY Blood Clot Prevention #30 Ref 0 TAB Spironolactone (Spironolactone) 50 Mg Tab 50 MG PO DAILY #30 Ref 0 TAB Tiotropium Inh (Spiriva Handihaler) 18 Mcg Cap 18 MCG INH DAILY 1 capsule = 18 mcg COPD #30 Ref 0 CAP Valsartan (Valsartan) 160 Mg Tab 160 MG PO BID #60 Ref 0 TAB Keith Jones MD R2 July 17, 2016 10:11
--- NOTE | 2016-07-18 10:29 | CATHPROC ---
[employer] HIS Report Study Information Study Number Scheduled Start Study Start 1002-17 07/14/2016 Jul 14 2016 9:30AM Referring Institution Admit Source Facility Department 1 Emergency department [facility] Physician and Clinical Staff Initial Andrew Ritter Analyst Programmer Loree Bruce,RN Other cathlab, cathlab Recorder Ravi Horan RCIS(BS) Scrub Annette Vasques,(R) Procedures Performed Procedure Location (Site) Vessel Name Coronary Angiograms LCA Left Coronary Coronary Angiograms SOLIS-LAD Left Coronary Coronary Angiograms SVG-OM CIRC Wire insertion Fem Art (right) Femoral Art Equipment Time Natural Science Manager Description Size Mfg Part Number Used/Scraped TRANSDUCER, TRUWAVE 09:32 [employer] * [id number] Used W/Vungle MPIS-502-10.0- INTRODUCER SET, 10:13 [employer] FR 5 SC-NT-U-SST Used MICROPUNCTURE, STIFFENED *[id number] *[id number] *[id number] 09:32 [employer]olution PACK, CCL CUSTOM * Used *[id number] 09:32 [employer]olution SUPPORT, ARTERIAL ADULT [id number] Used [id number] 09:32 Danger MEDICAL WIRE, EXCHANGE 260CM 3MMJ 260CM Used *[id number] 09:32 NAMIC MANIFOLD, 4 PORT * Used *[id number] 09:32 NYCOMED OMNIPAQUE, 350 MG, 150ML 150ML [id number] Used [id number] 09:32 WILSON [employer] BLANKET,WARM AIR CCL * Used *[id number] 10:19 TERUMO MEDICAL SHEATH, FR5 TERUMO (10CM) FR 5 [id number] Used SHEATH, FR6 TRANSRADIAL 09:32 TERUMO MEDICAL FR 6 [id number] Used SLENDER 10CM History: Current Medications Medication Dosage/Unit Route Frequency Last Date/Time Taken Statins (any) Beta Arsalan ASA History: Allergies Allergy Reaction *MDRO Multi-Drug Resistant Organism FREDRICK Inhibitors Swelling History: Risk Factors Family History of Hypertension Dyslipidemia Previous PR Previous Heart Failure Premature CAD Yes Yes No Yes Yes Prior Valve Prior PCI Prior PCIDate Prior CABG Prior CABGDate Surgery No Yes 02/21/2016 Yes 02/20/2011 Cerebrovascular Peripheral Artery Chronic Lung On Dialysis Diabetes Diabetes Therapy Disease Disease Disease No No No Yes Yes Insulin History: Symptoms/Diagnosis Selection Items Chest pain History: Stress Tests Stress or Imaging Studies Performed Yes Standard Exercise Stress Test No Stress Echo No Stress Test SPECT Stress Test SPECT Result Stress Test SPECT Ischemia Risk/Extent Yes Positive Unavailable Stress Test CMR No Cardiac CTA Coronary Calcium Score No No History: Other Disease Selection Items CAD HTN History: PR/CV Data Previous Cath Date Previous CABG Date 02/21/2016 02/20/2011 History: Other Current Smoker Method Packs a Day Years Used Pack Years Yes Cigarettes 1 10 10 Labs Hgb (g/dl) Hct (%) WBC (l/cumm) Platelets (thousands) 12.00-18.00 37.00-55.00 4.80-10.80 140.00-450.00 12.7 37.7 8 206 Glucose (mg/dl) BUN (mg/dl) Creatinine (mg/dl) BUN:Creatinine (1:x) 60.00-110.00 8.00-20.00 0.10-9.00 10.00-20.00 168 20 0.9 22.2 Na (meq/l) K (meq/l) 138.00-146.00 3.80-5.10 139 4 INR (PTT:PT) 0.50-2.00 1 Troponin I (ng/ml) CPK (u/l) CPK-MB (ng/ML) 0.40-2.30 37.00-289.00 0.00-7.00 0.02 152 1.1 Medication Medication Total Dose (Bolus/Oral) Medication Total Dosage/Unit 1% XYLOCAINE 42 mL EFFIENT 10 mg FENTANYL 50 mcg VERSED 0.5 mg Medications (Bolus/Oral) Medication Time Given Dosage/Unit Administered By Reason VERSED 07/14/2016 10:02:44 AM 0.5 mg Loree Bruce 0.5 mg VERSED given in lab by Loree Bruce, MICH in Left Forearm via Peripheral IV. Ordered by Andrew Dietz. FENTANYL 07/14/2016 10:02:52 AM 25 mcg Loree Bruce 25 mcg FENTANYL given in lab by Loree Bruce, MICH in Left Forearm via Peripheral IV. Ordered by Andrew Roman. 1% XYLOCAINE 07/14/2016 10:04:22 AM 2 mL Andrew Jenkins 2 mL 1% XYLOCAINE given in lab by Andrew Jenkins in Left Radial via Subcutaneous. 1% XYLOCAINE 07/14/2016 10:13:21 AM 20 mL Andrew Jenkins 20 mL 1% XYLOCAINE given in lab by Andrew Jenkins in Left Groin via Subcutaneous. FENTANYL 07/14/2016 10:16:51 AM 25 mcg Loree Bruce 25 mcg FENTANYL given in lab by Loree Bruce, MICH in Left Forearm via Peripheral IV. Ordered by Andrew oRman. 1% XYLOCAINE 07/14/2016 10:18:20 AM 20 mL Andrew Jenkins 20 mL 1% XYLOCAINE given in lab by Andrew Jenkins in Right Groin via Subcutaneous. EFFIENT 07/14/2016 10:53:16 AM 10 mg Loree Bruce 10 mg EFFIENT given in lab by Loree Bruce RN via Oral. Ordered by Andrew Jenkins. Medication (Drip) Medication Time Given Dosage/Unit Concentration/Unit Diluent (ml) Solution IV Solutions 07/14/2016 9:30:32 AM 0 mL (IV) 500 NaCl .9 Patient arrived on IV Solutions given by gerardo carrillo in Left Forearm via Peripheral IV. Pump/Dri p Flow = 20 ml/hr using NaCl .9. Ordered by Andrew Jenkins. Initial Case Assessment Cardiovascular HR Rhythm NIBP Chest Pain 72 sinus 175/88 0 Edema Present Skin color Skin None Normal Warm Dry Circulatory - Right Pulses Dorsalis Pedis Femoral 2 3 Scale (0,1,2,3,4,d) Circulatory - Left Pulses Dorsalis Pedis Femoral 2 3 Scale (0,1,2,3,4,d) Neurological State Oriented to time-place- Alert Moves all extremities person Respiration - General Respiration Rate SpO2 (%) (B/min) 15 99 Final Case Assessment Cardiovascular HR Rhythm NIBP Chest Pain 74 sinus 137/69 0 Edema Present Skin color Skin None Normal Warm Dry Circulatory - Right Pulses Dorsalis Pedis Femoral 2 3 Scale (0,1,2,3,4,d) Circulatory - Left Pulses Dorsalis Pedis Femoral 2 3 Scale (0,1,2,3,4,d) Neurological State Oriented to time-place- Alert Moves all extremities person Respiration - General Respiration Rate SpO2 (%) (B/min) 15 99 Chronological Log Time Study Chronological Log 9:30:15 Patient arrived via Bed. 9:30:16 Patient Name, D.O.B, / Armband Verified By R.N. 9:30:16 Consent signed by the physician and the patient and verified by the [facility] staff. 9:30:17 Pre-op and post- op instructions given; patient acknowledges understanding of instructions. 9:30:20 Verbal Stimulation=2 Physical Stimulation=2 Airway=2 Respiration=2 TOTAL=8. (0=absent, 1=li mited, 2=present) 9:30:21 Presedation assessment performed by [facility] RN. 9:30:24 Allens test performed on the left radial and ulnar artery. 9:30:25 Immediate Presedation assesment performed by physician. 9:30:26 Patient has been NPO for More than 6Hrs. 9:30:27 Skin Breakdown- none per patient 9:30:28 Patient Warmer Placed on the Table. 9:30:28 Latisha Prominences Protected 9:30:31 A # 20 IV was noted in the Forearm (left). Grade = 0 Patient arrived on IV Solutions given by cathlabgerardo in Left Forearm via Peripheral IV. Pu mp/Drip Flow = 20 ml/hr 9:30:32 using NaCl .9. Ordered by Andrew Jenkins. 9:30:32 History and physical on the chart or being dictated. Vitals capture started with the following parameters, Patient=Adult, Interval=5 min, Initial Pr cvfjpl=770 mmHg, 9:36:41 Deflation Rate=5 mmHg Assessment: Initial Case, HR=72 BPM, Rhythm=sinus, DCPF=211/88 mmhg, Chest Pain=0, Edema=None, Color=Normal, Skin = Warm, Dry Right Pulses: Terrence Ped=2, Femoral=3 9:36:43 Left Pulses: Terrence Ped=2, Femoral=3, Radial=3 Neurological: State=Alert, Ox3, THOMAS Respiration: Resp=15 B/min, SpO2=99 % 9:37:06 Reference ECG taken 9:37:42 HR=80 bpm, QHMG=890/88 mmhg, SpO2=99.0 %, Resp=16 B/min, Pain=0, Jamey=10, Mccormack=2 9:42:31 HR=69 bpm, FMKX=932/77 mmhg, SpO2=95.0 %, Resp=18 B/min, Pain=0, Jamey=10, Mccormack=2 9:43:21 Left Radial and groin(s) prepped with 2% chlorhexidine, and with a 3 min. waiting time. 9:47:30 HR=68 bpm, HZHU=123/75 mmhg, SpO2=96.0 %, Resp=17 B/min, Pain=0, Jamey=10, Mccormack=2 9:48:09 MD arrived. 9:48:21 Contrast Scanned 9:48:22 Immediate Presedation assesment performed by physician. 9:52:29 HR=64 bpm, ZAQZ=208/74 mmhg, SpO2=98.0 %, Resp=17 B/min, Pain=0, Jamey=10, Mccormack=2 9:54:59 Pressure channel 1 zeroed. 9:57:28 HR=65 bpm, GTBN=236/79 mmhg, SpO2=99.0 %, Resp=18 B/min, Pain=0, Jamey=10, Mccormack=2 Time Out. Correct patient, correct procedure,correct physician, ,power injector not loaded with contrast with surgical 10:02:25 team present. Time Out Concurred by MD, individual staff in procedure 10:02:31 HR=68 bpm, XRAL=386/73 mmhg, SpO2=98.0 %, Resp=13 B/min, Pain=0, Jamey=10, Mccormack=2 10:02:36 Case Start 10:02:36 Verbal Stimulation=2 Physical Stimulation=2 Airway=2 Respiration=2 TOTAL=8. (0=absent, 1=li mited, 2=present) 0.5 mg VERSED given in lab by Loree Bruce, RN in Left Forearm via Peripheral IV. Ordered by Gregory, 10:02:44 Andrew. 25 mcg FENTANYL given in lab by Loree Bruce, MICH in Left Forearm via Peripheral IV. Ordere d by Gregory, 10:02:52 Andrew. 10:04:22 2 mL 1% XYLOCAINE given in lab by Andrew Jenkins in Left Radial via Subcutaneous. 10:08:09 HR=72 bpm, ZTZC=895/85 mmhg, SpO2=94.0 %, Resp=16 B/min, Pain=0, Jamey=10, Mccormack=2 10:12:31 HR=66 bpm, FZDP=671/63 mmhg, SpO2=94.0 %, Resp=18 B/min, Pain=0, Jamey=10, Mccormack=2 10:12:37 Left radial access aborted, going to attempt RFA access 10:13:21 20 mL 1% XYLOCAINE given in lab by Andrew Jenkins in Left Groin via Subcutaneous. 25 mcg FENTANYL given in lab by Loree Bruce, RN in Left Forearm via Peripheral IV. Ordere d by Gregory, 10:16:51 Andrew. 10:17:28 HR=81 bpm, QZJZ=484/67 mmhg, SpO2=93.0 %, Resp=16 B/min, Pain=0, Jamey=10, Mccormack=2 10:18:20 20 mL 1% XYLOCAINE given in lab by Andrew Jenkins in Right Groin via Subcutaneous. 10:18:36 Access site was Right Femoral Artery. A INTRODUCER SET, MICROPUNCTURE, STIFFENED FR 5 was advanced into the Fem Art (right) using the 10:18:40 Percutaneous technique. 10:18:44 A SHEATH, FR5 TERUMO (10CM) FR 5 was exchanged in the Fem Art (right). This was necessary i n order ~REASON~. 10:20:47 Pressure channel 1 zero failed. 10:20:59 An injection in the Fem Art (right) was made through the SHEATH, FR5 TERUMO (10CM) FR 5. A JR 4.0 INFINITI CATHETER FR 5 was advanced over a wire. OMNIPAQUE, 350 MG, 150ML 150ML was us ed for 10:22:03 injections. 10:22:25 HR=70 bpm, NVBY=058/64 mmhg, SpO2=93.0 %, Resp=15 B/min, Pain=0, Jamey=10, Mccormack=2 Recorded Pressure: LV, HR=82, Condition=Condition 1 10:23:14 (Left Ventricle) LV 153/-1/14 Recorded Pressure: LV, Ao, HR=80, Condition=Condition 1 10:23:26 (Left Ventricle) LV 153/-5/6, (Aorta) Ao 149/69/102 10:24:02 The SVG-OM was injected and visualized at various angles. OMNIPAQUE, 350 MG, 150ML 150ML us ed. 10:27:23 A WIRE, EXCHANGE 260CM 3MMJ 260CM was inserted via Fem Art (right). 10:27:28 HR=78 bpm, PCWR=916/66 mmhg, SpO2=94.0 %, Resp=15 B/min, Pain=0, Jamey=10, Mccormack=2 10:29:46 The SOLIS-LAD was injected and visualized at various angles. OMNIPAQUE, 350 MG, 150ML 150ML used. 10:30:[address] Engel 10:32:27 HR=78 bpm, OUYJ=101/64 mmhg, SpO2=94.0 %, Resp=16 B/min, Pain=0, Jamey=10, Mccormack=2 Recorded Pressure: Ao, HR=80, Condition=Condition 1 10:33:28 (Aorta) Ao 146/70/100 After removing the current catheter a JL 4.0 INFINITI CATHETER FR 5 was advanced over a WIRE, E XCHANGE 260CM 10:37:00 3MMJ 260CM. 10:37:28 HR=66 bpm, DMGB=996/57 mmhg, SpO2=95.0 %, Resp=15 B/min, Pain=0, Jamey=10, Mccormack=2 10:39:55 The LCA was injected and visualized at various angles. OMNIPAQUE, 350 MG, 150ML 150ML used . 10:42:25 HR=70 bpm, OEJO=659/60 mmhg, SpO2=95.0 %, Resp=14 B/min, Pain=0, Jamey=10, Mccormack=2 10:43:46 Catheter was removed 10:45:34 Dr. Jenkins reviewing previous films 10:47:27 HR=69 bpm, LAUD=261/69 mmhg, SpO2=96.0 %, Resp=15 B/min, Pain=0, Jamey=10, Mccormack=2 10:49:24 Case End Assessment: Final Case, HR=74 BPM, Rhythm=sinus, LLWD=743/69 mmhg, Chest Pain=0, Edema=None, Color=Normal, Skin = Warm, Dry Right Pulses: Terrence Ped=2, Femoral=3 10:49:29 Left Pulses: Terrence Ped=2, Femoral=3, Radial=3 Neurological: State=Alert, Ox3, THOMAS Respiration: Resp=15 B/min, SpO2=99 % 10:52:05 Sheath removed; pressure applied to access site. 10:52:08 No case complications noted. 10:52:09 Cine recording checked. 10:52:11 Bedside Report will be given. 10:52:15 Verbal Stimulation=2 Physical Stimulation=2 Airway=2 Respiration=2 TOTAL=8. (0=absent, 1=li mited, 2=present) 10:52:32 HR=70 bpm, RNVZ=300/69 mmhg, SpO2=95.0 %, Resp=10 B/min, Pain=0, Jamey=10, Mccormack=2 10:53:16 10 mg EFFIENT given in lab by Loree Bruce RN via Oral. Ordered by Andrew Jenkins. 10:57:27 HR=72 bpm, AIGW=792/61 mmhg, SpO2=95.0 %, Resp=11 B/min, Pain=0, Jamey=10, Mccormack=2 11:02:32 HR=68 bpm, WERX=894/55 mmhg, SpO2=95.0 %, Resp=11 B/min, Pain=0, Jamey=10, Mccormack=2 11:07:29 HR=67 bpm, LNCU=050/62 mmhg, SpO2=94.0 %, Resp=17 B/min, Pain=0, Jamey=10, Mccormack=2 11:09:56 Sterile dressing applied to site 11:15:05 Patient moved to stretcher End Study - Contrast Media Used In Study Contrast Total Opened (mL) Total Used (mL) Total Wasted (mL) Omnipaque 80 80 0 End Study - Maximum Contrast Load Max Contrast Load (mL) 475.0 End Study - Radiation Exposure Fluoro Time (minutes) 7.7 End Study - Patient Disposition Complications Transferred To Interventional Outcome No [facility] Holding No attempt made
--- NOTE | 2016-07-19 17:22 | MA ---
cc: ANDREW WHEELER DO DATE: July 14, 2016 PROCEDURE Left heart catheterization, coronary angiogram, moderate sedation 30 minutes PREPROCEDURE DIAGNOSIS Chest pain, abnormal stress test. POSTPROCEDURE DIAGNOSIS Multivessel coronary artery disease for medical management, history of CABG, (2 out of 3 grafts occluded). MEDICATIONS 1. Heparin 3400 units. 2. Verapamil 2.5 mg. 3. Nitro 200 mcg 4. Versed 0.5 mg. 5. Fentanyl 50 mcg. 6. Effient 10 milligrams. CONTRAST 80 cc FLUOROSCOPY 7.7 minutes MODERATE SEDATION 30 minutes PROCEDURAL SUMMARY Dinah Clark is a pleasant 50-year-old female who originally presented to her outpatient information technology account manager with a complaint of chest pain. Because of this, she underwent a nuclear stress test which showed infarct in the inferior wall with trudi-infarct ischemia. Because she had chest pain, she was sent to the emergency room for consideration of cardiac catheterization. Risks, benefits and alternatives were explained to her and she consented as such. She was brought to the lab and prepped in the usual sterile fashion. Because of her bypass grafts I attempted to go to a left radial access but was unable to obtain access to the artery. She previously had a cardiac catheterization from the right femoral position which has a high bifurcation. Because of this, I attempted to go into the left femoral but was unable to access, so finally access was obtained in the right femoral artery with a modified Seldinger technique and placement of a 5 Scottish sheath. This was easily aspirated and flushed. A JR-4 was advanced over a J-wire to the ascending aorta and used across the aortic valve for measurement of left ventricular end-diastolic pressure. This was pulled back across the aortic valve. This showed no significant gradient of aortic stenosis. JR-4 was used for selective angiography of the SVG to obtuse marginal. No angiography was done of the RCA or SVG to the RCA as they are known to be occluded. JR-4 was then advanced up the subclavian artery over a J-wire for selective angiography of the SOLIS to LAD. JR-4 was then exchanged for a JL-4 which was used for angiography of the [place] left coronary system. Films from her previous cardiac catheterization were once again reviewed for completeness. At this time the JL-4 was then removed over a J-wire. The right femoral artery sheath was removed and pressure was held for hemostasis. FINDINGS Left Federico: Short but normal appearing with 10% disease. It trifurcates into an LAD, ramus and circumflex. LAD: Proximal 30% disease. After the takeoff of the first large diagonal, there is 100% occlusion. Ramus: A relatively small vessel with diffuse 60% disease before bifurcation into an upper and lower branch. Circumflex: A small vessel overall which has diffuse 90% disease with what appears to be probably two CTOs throughout the mid portion before three small obtuse marginals. RCA: Known 100% occluded from previous cardiac catheterization. SOLIS to LAD. No significant disease, has good runoff with some retrograde flow into the mid LAD. SVG to RCA. Known 100% occluded from previous catheterization. SVG to obtuse marginal: Previous stents patent in the proximal portion, midportion 100% occluded. Distal portion fills retrograde from the [place] Circumflex, but occluded portion is relatively long. LVEDP: 6. IMPRESSION 1. Chest pain possibly due to coronary insufficiency, with an abnormal stress test showing infarction of the inferior wall with possible trudi-infarct ischemia. 2. Coronary artery disease with a history of coronary artery bypass grafting (2/3 grafts occluded), for medical management. 3. Tobacco abuse. 4. Hyperlipidemia 5. Hypertension. RECOMMENDATIONS 1. Ms. Clark appears to have occlusion of her SVG to obtuse marginal since her last cardiac catheterization in January of 2016. 2. I feel at this time we should continue with medical management and I have added Imdur. Her coronary arteries do not appear to have a consideration of intervention as she has complete occlusion of her saphenous vein graft over a long segment to her obtuse marginal. The left circumflex [place] vessel appears to be at most 2 millimeters proximally and distally 1 to 1.5 millimeters over a long segment with what appears to be two CTOs. As she has had negative troponins, is chest pain free, hemodynamically stable and stress test shows infarction of the inferior wall with possible trudi-infarct ischemia of a small area, I feel that we should attempt to continue medical management. 3. She will be watched overnight and if stable in the morning plan discharge home. 4. She will continue on her aspirin, Effient, statin and beta-milly, with an addition of Imdur 5. She will follow up with Dr. Lee Larson, her information technology account manager in the next few weeks. I did discuss with one of Dr. Bella's nurse practitioners about my findings and addition of medications for her medical management. Thank you for allowing me to see Dinah Clark. If there are any questions, please do not hesitate to call. Andrew Wheeler DO VGP/LAURO /1:51 PM /5:01 PM MTDD
== END 2016-07-15 13:36 | disposition home or self-care (01) ==
LOC: NEPC 12:20 → NEDA 14:17 → INTOOBSV 15:14 → OBSVTOIN 15:14 → NEPFCDU 17:07 → HCIS 07-14 10:06
PROVIDERS: ADMIT Family Medicine; ATTEND Family Medicine
DX: R94.39 Abnormal result of other cardiovascular function study (principal); I25.119 Atherosclerotic heart disease of native coronary artery with unspecified angina pectoris; I10 Essential (primary) hypertension; E11.9 Type 2 diabetes mellitus without complications; Z95.1 Presence of aortocoronary bypass graft; F17.210 Nicotine dependence, cigarettes, uncomplicated; I50.9 Heart failure, unspecified
CPT/HCPCS: 71010; 73030; 80048; 82550; 82552; 82948; 83036; 83735; 84484; 85025; 85610; 85730; 93005; 93454; 99285; C1769; C1893; G0378; J1644; J1815; J2250; J3010; J7030; 93459; Q9967

== ENCOUNTER 2017-03-13 10:17 | Emergency (ER) | payer MEDICAID ==
[2017-03-13] MEDS ORDERED: SODIUM CHLORIDE 0.9% FLUSH 10 ML FLUSH IV FLUSH (11:45)
[2017-03-13] MEDS: ONDANSETRON HCL 4 MG/2 ML VIAL IVP (12:02)
[2017-03-13] MEDS: DICYCLOMINE HCL 20 MG/2 ML VIAL IM (12:02)
[2017-03-13 12:30] LABS: AUTOMATED NEUTROPHIL # 8.2 TH/MM3 (1.8-7.7); BASOPHIL % 0.2 % (0.0-2.0); EOSINOPHIL % 0.3 % (0.0-4.0); HEMATOCRIT 38.4 % (35.0-46.0); HEMO FLAGS DIFF FINAL; HEMOGLOBIN 13.1 GM/DL (11.6-15.3); LYMPHOCYTE # 1.5 TH/MM3 (1.0-4.8); MEAN CELL VOLUME 90.9 FL (80.0-100.0); MEAN CORPUSCULAR HGB CONC 34.1 % (32.0-36.0); MEAN PLATELET VOLUME 10.4 FL (7.0-11.0); MONO % 7.1 % (0.0-8.0); MONOCYTE # 0.7 TH/MM3 (0-0.9); NEUT % 78.4 % (16.0-70.0); PLATELET COUNT 214 TH/MM3 (150-450); RED BLOOD COUNT 4.23 MIL/MM3 (4.00-5.30); RED CELL DISTRIBUTION WIDTH 13.9 % (11.6-17.2); WHITE BLOOD COUNT 10.5 TH/MM3 (4.0-11.0)
[2017-03-13 12:32] LABS: BACTERIA, URINE RARE /hpf; BILIRUBIN, URINE NEG (NEG); BLOOD, URINE TRACE (NEG); COMMENT (UR) CULTURE INDICATED; CULTURE IF INDICATED CULTURE INDICATED; GLUCOSE,URINE 1000 mg/dL (NEG); KETONE, URINE NEG (NEG); NITRITE,URINE POS (NEG); SQUAMOUS EPITHELIAL CELL URINE 2 /hpf (0-5); URINE COLOR YELLOW (YELLW/STRAW); URINE LEUKOCYTE ESTERASE MOD (NEG); WHITE BLOOD CELL CLUMPS RARE
[2017-03-13 12:35] LABS: ALBUMIN 4.7 GM/DL (3.4-5.0); ANION GAP 8 MEQ/L (5-15); AST (GOT) 14 U/L (15-37); BICARBONATE 25.3 MEQ/L (21.0-32.0); BLOOD UREA NITROGEN 26 MG/DL (7-18); CALCIUM 9.7 MG/DL (8.5-10.1); CHLORIDE 103 MEQ/L (98-107); GLOMERULAR FILTRATION RATE 57 ML/MIN (>89); GLUCOSE,RANDOM 195 MG/DL (74-106); LIPASE 149 U/L (73-393); POTASSIUM 4.1 MEQ/L (3.5-5.1); SODIUM (NA) 136 MEQ/L (136-145)
[2017-03-13 12:38] LABS: ALKALINE PHOSPHATASE 38 U/L (45-117); ALT (GPT) 17 U/L (10-53); TOTAL BILIRUBIN ADULT 0.7 MG/DL (0.2-1.0); TOTAL PROTEIN 8.9 GM/DL (6.4-8.2)
[2017-03-13] MEDS: cefTRIAXone INJ 1,000 MG in SODIUM CHLORIDE 0.9% INJ 100 ML IV (13:36)
[2017-03-13] MEDS: KETOROLAC TROMETHAMINE 30 MG/ML (IVP) VIAL IV PUSH (13:47)
== END 2017-03-13 15:15 | disposition home or self-care (01) ==
LOC: NEPD 10:17
DX: R10.13 Epigastric pain (principal); N30.01 Acute cystitis with hematuria; B96.29 Other Escherichia coli [E. coli] as the cause of diseases classified elsewhere; E78.00 Pure hypercholesterolemia, unspecified; E11.9 Type 2 diabetes mellitus without complications; I11.0 Hypertensive heart disease with heart failure; I50.9 Heart failure, unspecified; I25.10 Atherosclerotic heart disease of native coronary artery without angina pectoris; I25.2 Old myocardial infarction; J44.9 Chronic obstructive pulmonary disease, unspecified; K21.9 Gastro-esophageal reflux disease without esophagitis; Z79.4 Long term (current) use of insulin
CPT/HCPCS: 74019; 80053; 81001; 83690; 85025; 87077; 87086; 87186; 96365; 96372; 96375; 99284-25

== ENCOUNTER 2017-04-16 15:44 | Emergency (ER) | payer MEDICAID ==
[~2017-04-16] VITALS: Ht 154.9 cm; Wt 82.0 kg
[~2017-04-16 15:44] MED LIST changes: -ALBU0.08 NEB; +AMBI10TA PO; -ASPI-110 PO; +ASPI1TAB57 PO; -ATOR1TAB18 PO; +ATOR80TA45 PO; +CEPH-460 PO; -GABA600T PO; -GEMF600T PO; +HYDR-3799 PO; -HYDR25TA35 PO; -INSU100V SQ; +ISOS30TA3 PO; -LANTUS2P; +LANTUS2P SQ; +LYRI150C PO; +OXYB15TA PO; +SITA50 PO
[2017-04-16 15:47] VITALS: BP 140/80; PULSE 92; RESP 16; TEMP 98.2; O2SAT 99
[2017-04-16 16:38] LABS: AUTOMATED NEUTROPHIL # 3.2 TH/MM3 (1.8-7.7); BASOPHIL % 0.6 % (0.0-2.0); EOSINOPHIL # 0.3 TH/MM3 (0-0.4); EOSINOPHIL % 4.8 % (0.0-4.0); HEMATOCRIT 33.4 % (35.0-46.0); HEMOGLOBIN 11.6 GM/DL (11.6-15.3); LYMPH % 33.7 % (9.0-44.0); LYMPHOCYTE # 2.1 TH/MM3 (1.0-4.8); MEAN CELL VOLUME 89.6 FL (80.0-100.0); MEAN CORPUSCULAR HGB CONC 34.6 % (32.0-36.0); MEAN PLATELET VOLUME 10.6 FL (7.0-11.0); MONO % 8.4 % (0.0-8.0); MONOCYTE # 0.5 TH/MM3 (0-0.9); NEUT % 52.5 % (16.0-70.0); PLATELET COUNT 186 TH/MM3 (150-450); RED BLOOD COUNT 3.73 MIL/MM3 (4.00-5.30); RED CELL DISTRIBUTION WIDTH 12.8 % (11.6-17.2); WHITE BLOOD COUNT 6.1 TH/MM3 (4.0-11.0)
--- NOTE | 2017-04-16 16:39 | PD ---
HPI Chief Complaint: Wound/Suture/Staple Re-Check Time Seen by Provider: 15:57 Travel History International Travel<30 days: No Contact w/Intl Traveler<30days: No Traveled to known affect area: No History of Present Illness HPI Patient is a 51 year old female who comes in complaining of leakage of fluids from her surgical site. She had a pilonidal cyst removed on March 29. She says that she did follow-up with the surgeon last week, and everything was fine. For the past few days, she has had leakage of pus from the site. She is not on any antibiotics. She denies fever chills. She says it is uncomfortable to sit down. Nothing seems to make it better. Severity is mild to moderate. PFSH Past Medical History Hx Anticoagulant Therapy: Yes Asthma: Yes Autoimmune Disease: No Blood Disorders: No Anxiety: Yes Depression: No Heart Rhythm Problems: Yes (EPISODE OF UNSUSTAINED VTACH ON PREVIOUS ADMISSION) Cancer: No Cardiac Catheterization: Yes Cardiovascular Problems: Yes High Cholesterol: Yes Chest Pain: Yes Congestive Heart Failure: Yes COPD: Yes Cerebrovascular Accident: No Coronary Artery Disease: Yes Diabetes: Yes Patient Takes Glucophage: No Diminished Hearing: No Endocrine: Yes Gastrointestinal Disorders: No GERD: Yes Genitourinary: Yes Headaches: No Heparin Induced Thrombocytopen: No Hypertension: Yes Immune Disorder: No Implanted Vascular Access Dvce: No Musculoskeletal: No Neurologic: No Psychiatric: No Reproductive: Yes (HYSTERECTOMY) Respiratory: Yes (ASTHMA, COPD) Migraines: No Myocardial Infarction: Yes Pneumonia: Yes Seizures: No Sleep Apnea: No Thyroid Disease: No ?: Not Menopausal: Yes : 4 Para: 4 Tubal Ligation: Yes Past Surgical History Abdominal Surgery: No Cardiac Surgery: Yes (TRIPLE BYPASS 2011) Coronary Artery Bypass Graft: Yes (CABG X 23 NOV 2011) Coronary Stent: Yes Ear Surgery: No Endocrine Surgery: No Eye Surgery: No Genitourinary Surgery: No Gynecologic Surgery: Yes (HYSTERECTOMY, TUBaL LIGATION) Hysterectomy: Yes Neurologic Surgery: No Oral Surgery: No Thoracic Surgery: No Other Surgery: Yes (R HAND ) Family History Family Myocardial Infarction: Yes (MOTHER AND FATHER) Social History Alcohol Use: No Tobacco Use: No Substance Use: No Allergies-Medications (Allergen,Severity, Reaction): Coded Allergies: benazepril (Verified Allergy, Severe, Swelling, 04/16/17) ANGIOEDEMA TO ENALIPRIIL captopril (Verified Allergy, Severe, Swelling, 04/16/17) ANGIOEDEMA TO ENALIPRIIL enalaprilat (Verified Allergy, Severe, Swelling, 04/16/17) ANGIOEDEMA TO ENALIPRIIL fosinopril (Verified Allergy, Severe, Swelling, 04/16/17) ANGIOEDEMA TO ENALIPRIIL lisinopril (Verified Allergy, Severe, Swelling, 04/16/17) ANGIOEDEMA TO ENALIPRIIL quinapril (Verified Allergy, Severe, Swelling, 04/16/17) ANGIOEDEMA TO ENALIPRIIL *MDRO Multi-Drug Resistant Organism (Verified Allergy, Unknown, 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 Re-start Lasix 20mg daily on Tuesday 03/21 Ventolin Hfa 18 GM Inh (Albuterol Sulfate) 90 Mcg/Act Aer 2 Puff INH Q4H PRN Metoprolol Tartrate 25 Mg Tab 25 Mg PO Q12H Reported Hydralazine HCl 25 Mg Tablet 25 Mg PO TID Ambien (Zolpidem Tartrate) 10 Mg Tab 10 Mg PO HS PRN Januvia (Sitagliptin Phosphate) 50 Mg Tab 50 Mg PO DAILY Amlodipine (Amlodipine Besylate) 10 Mg Tab 10 Mg PO DAILY Lyrica (Pregabalin) 150 Mg Cap 150 Mg PO BID Lantus Inj (Insulin Glargine) 1,000 Unit/10 Ml Vial 55 Units SQ DAILY Proair Hfa 8.5 GM Inh (Albuterol Sulfate) 90 Mcg/Act Aer 1 Puff INH Q4H PRN 108 mcg/actuation Valsartan 160 Mg Tab 160 Mg PO BID Farxiga (Dapagliflozin) 5 Mg Tab 5 Mg PO DAILY Fenofibrate 145 Mg Tab 145 Mg PO DAILY Effient (Prasugrel) 10 Mg Tab 10 Mg PO DAILY Novolog Inj (Insulin Aspart) 100 Unit/Ml Inj 10 Unit SQ TIDAC Labetalol (Labetalol HCl) 200 Mg Tab 200 Mg PO BID Spiriva Handihaler (Tiotropium Inh) 18 Mcg Cap 18 Mcg INH DAILY 1 capsule = 18 mcg Spironolactone 50 Mg Tab 50 Mg PO DAILY Nitroglycerin SL (Nitroglycerin) 0.4 Mg Subl 0.4 Mg SL DIRECTED PRN ONE TABLET UNDER THE TONGUE NEEDED FOR CHEST PAIN, MAY REPEAT EVERY FIVE MINUTES FOR A TOTAL OF 3 DOSES OR CALL 911 IF NO RELIEF Metformin (Metformin HCl) 1,000 Mg Tab 1,000 Mg PO BIDPC With meals Atorvastatin (Atorvastatin Calcium) 80 Mg Tab 80 Mg PO HS Aspirin 81 (Aspirin) 81 Mg Tabdr 81 Mg PO DAILY Review of Systems Except as stated in HPI: all other systems reviewed are Neg General / Constitutional: No: Fever, Chills HENT: No: Headaches, Lightheadedness Cardiovascular: No: Chest Pain or Discomfort Respiratory: No: Shortness of Breath Gastrointestinal: No: Nausea, Vomiting, Abdominal Pain Genitourinary: No: Dysuria Musculoskeletal: No: Myalgias Skin: Positive Lesions Neurologic: No: Weakness, Dizziness Physical Exam Narrative GENERAL: Awake and alert, no acute distress. SKIN: Focused skin assessment warm/dry. Surgical wound to the coccyx area with leakage of pus towards the gluteal cleft. No wound dehiscence. HEAD: Atraumatic. Normocephalic. EYES: Pupils equal and round. No scleral icterus. No injection or drainage. ENT: Mucous membranes pink and moist. NECK: Trachea midline. No JVD. CARDIOVASCULAR: Regular rate and rhythm. No murmur appreciated. RESPIRATORY: No accessory muscle use. Clear to auscultation. Breath sounds equal bilaterally. GASTROINTESTINAL: Abdomen soft, non-tender, nondistended. MUSCULOSKELETAL: No obvious deformities. No clubbing. No cyanosis. No edema. NEUROLOGICAL: Awake and alert. No obvious cranial nerve deficits. Motor grossly within normal limits. Normal speech. PSYCHIATRIC: Appropriate mood and affect; insight and judgment normal. Data Data Last Documented VS Vital Signs Date Time Temp Pulse Resp B/P (MAP) Pulse Ox O2 Delivery O2 Flow Rate FiO2 04/16/17 16:17 80 18 04/16/17 15:47 98.2 140/80 (100) 99 Orders Orders Iv Access Insert/Monitor (04/16/17 16:01) Complete Blood Count With Diff (04/16/17 16:01) Comprehensive Metabolic Panel (04/16/17 16:01) Ct Pelvis W Iv Contrast(Rout) (04/16/17 ) Wound Culture And Gram Stain (04/16/17 16:02) Labs Laboratory Tests Test 04/16/17 16:09 [facility] Medical Decision Making Medical Screen Exam Complete: Yes Emergency Medical Condition: Yes Differential Diagnosis Surgical wound infection versus abscess versus wound dehiscence Narrative Course Patient is a 51-year-old female who comes in complaining of leakage of fluid from her surgical site. Exam shows pus leaking from the lower part of the surgical wound. IV sevens, labs sent. CT of the pelvis ordered to check for any worsening abscess. Patient signed out to Dr. Chamberlain to follow up testing and disposition the patient. Emerald Bhandari MD Apr 16, 2017 16:39
[2017-04-16 17:04] LABS: ALBUMIN 3.7 GM/DL (3.4-5.0); ALKALINE PHOSPHATASE 77 U/L (45-117); ALT (GPT) 17 U/L (10-53); AST (GOT) 12 U/L (15-37); BICARBONATE 26.7 MEQ/L (21.0-32.0); BLOOD UREA NITROGEN 21 MG/DL (7-18); CHLORIDE 105 MEQ/L (98-107); CREATININE 1.38 MG/DL (0.50-1.00); GLOMERULAR FILTRATION RATE 49 ML/MIN (>89); GLUCOSE,RANDOM 415 MG/DL (74-106); SODIUM (NA) 138 MEQ/L (136-145); TOTAL BILIRUBIN ADULT 0.3 MG/DL (0.2-1.0); TOTAL PROTEIN 7.5 GM/DL (6.4-8.2)
[2017-04-16] MEDS ORDERED: IOHEXOL 350 MG/ML 10 ML VIAL (for RAD DIAG) IVCONTRAST ONE (17:33)
--- NOTE | 2017-04-16 17:50 | RADRPT ---
EXAM DATE/TIME: 04/16/2017 17:33 [facility] COMPARISON: No previous studies available for comparison. INDICATIONS : Recent surgery cyst removed from buttocks, low back sore with swelling. IV CONTRAST: 75 cc Omnipaque 350 (iohexol) IV ORAL CONTRAST: No oral contrast ingested. RADIATION DOSE: 14.46 CTDIvol (mGy) MEDICAL HISTORY : Cardiovascular disease. Congestive heart failure. Hypertension.GERD,TB,Diabetes SURGICAL HISTORY : CABG Hysterectomy. ENCOUNTER: Initial ACUITY: 1 day PAIN SCALE: 7/10 LOCATION: Bilateral lower back TECHNIQUE: Volumetric scanning of the pelvis was performed. Using automated exposure control and adjustment of t he mA and/or kV according to patient size, radiation dose was kept as low as reasonably achievable to obtain optimal diagnostic quality images. DICOM format image data is available electronically for review and comparison. FINDINGS: BOWEL/MESENTERY: The visualized small and large bowel demonstrate no acute abnormality. There is no free fluid. There is stool throughout the colon. No inflammatory changes are seen. BLADDER: There is no wall thickening or mass. RETROPERITONEUM: There is no aneurysm or lymphadenopathy. REPRODUCTIVE: Within normal limits. INGUINAL: There is no lymphadenopathy or hernia. MUSCULOSKELETAL: The bony structures are grossly intact. There is some nonspecific edema in the subcutaneous soft tiss ues along the posterior buttocks. No loculated fluid collections are demonstrated. CONCLUSION: 1. Nonspecific edema in the subcutaneous soft tissues along the posterior buttocks. 2. Otherwise, unremarkable examination. Ashutosh Olivia MD on April 16, 2017 at 17:47 Board Certified Radiologist. This report was verified electronically.
[2017-04-16] MEDS ORDERED: SODIUM CHLOR 0.9% 1000 ML INJ 1,000 ML IV ONE (18:00)
[2017-04-16] MEDS ORDERED: INSULIN HUMAN REGULAR 1,000 UNITS/10 ML VIAL IV PUSH ONE (18:00)
--- NOTE | 2017-04-16 18:01 | PD ---
Data Data Last Documented VS Vital Signs Date Time Temp Pulse Resp B/P (MAP) Pulse Ox O2 Delivery O2 Flow Rate FiO2 04/16/17 16:17 80 18 04/16/17 15:47 98.2 140/80 (100) 99 Orders Orders Iv Access Insert/Monitor (04/16/17 16:01) Complete Blood Count With Diff (04/16/17 16:01) Comprehensive Metabolic Panel (04/16/17 16:01) Ct Pelvis W Iv Contrast(Rout) (04/16/17 ) Wound Culture And Gram Stain (04/16/17 16:02) Sodium Chlor 0.9% 1000 Ml Inj (Ns 1000 M (04/16/17 18:00) Insulin Human Regular Inj (Novolin R Inj (04/16/17 18:00) Labs Laboratory Tests Test 04/16/17 16:09 White Blood Count 6.1 TH/MM3 Red Blood Count 3.73 MIL/MM3 Hemoglobin 11.6 GM/DL Hematocrit 33.4 % Mean Corpuscular Volume 89.6 FL Mean Corpuscular Hemoglobin 31.0 PG Mean Corpuscular Hemoglobin Concent 34.6 % Red Cell Distribution Width 12.8 % Platelet Count 186 TH/MM3 Mean Platelet Volume 10.6 FL Neutrophils (%) (Auto) 52.5 % Lymphocytes (%) (Auto) 33.7 % Monocytes (%) (Auto) 8.4 % Eosinophils (%) (Auto) 4.8 % Basophils (%) (Auto) 0.6 % Neutrophils # (Auto) 3.2 TH/MM3 Lymphocytes # (Auto) 2.1 TH/MM3 Monocytes # (Auto) 0.5 TH/MM3 Eosinophils # (Auto) 0.3 TH/MM3 Basophils # (Auto) 0.0 TH/MM3 CBC Comment DIFF FINAL Differential Comment Blood Urea Nitrogen 21 MG/DL Creatinine 1.38 MG/DL Random Glucose 415 MG/DL Total Protein 7.5 GM/DL Albumin 3.7 GM/DL Calcium Level 9.0 MG/DL Alkaline Phosphatase 77 U/L Aspartate Amino Transf (AST/SGOT) 12 U/L Alanine Aminotransferase (ALT/SGPT) 17 U/L Total Bilirubin 0.3 MG/DL Sodium Level 138 MEQ/L Potassium Level 3.8 MEQ/L Chloride Level 105 MEQ/L Carbon Dioxide Level 26.7 MEQ/L Anion Gap 6 MEQ/L Estimat Glomerular Filtration Rate 49 ML/MIN MDM Supervised Visit with MARGE: No Narrative Course This case is checked out to me by Dr. Ambriz at 5 PM. 1758: I have rechecked the patient and presence of the nurse. She does have a bit of dried discharge that's lópez in color near the incision but there is no erythema or fluctuance or active drainage now. Suture line is intact. No obvious dehiscence. CBC is normal Metabolic profile is normal except for isolated hyperglycemia of 415 Bicarbonate is normal so I don't suspect DKA Patient has been noncompliant with insulin therapy and skipped it for the last 2 days because she "forgot" She has been point with her surgeon on Monday. I've advised her to call him tomorrow and report that there is one drainage and that she came here and had testing done Going to start some Bactrim DS I gave her 10 units IV regular insulin and 1 L normal saline IV bolus We'll reassess sugar @1854 sugar is 124 I prescribed a week of Bactrim DS Diagnosis Primary Impression: Postoperative wound infection Qualified Codes: T81.4XXA - Infection following a procedure, initial encounter Additional Impressions: Hyperglycemia Diabetes mellitus Qualified Codes: E11.8 - Type 2 diabetes mellitus with unspecified complications; Z79.4 - terminal operator (current) use of insulin Additional Instruction: The patient was advised to follow up with their physician and return if they worsen. Med/Other Pt SpecificInfo: Prescription(s) given Scripts Sulfamethoxazole-Trimethoprim (Bactrim DS) 800-160 Mg Tab 1 TAB PO BID for Infection, #14 TAB 0 Refills Prov: Carlos Chamberlain MD 04/16/17 Disposition: DISCHARGE HOME Condition: Stable Carlos Chamberlain MD Apr 16, 2017 18:01
[2017-04-16] MEDS ORDERED: BACT800T5 PO (18:53)
== END 2017-04-16 19:35 | disposition home or self-care (01) ==
LOC: NEPD 15:44
DX: T81.4XXA Infection following a procedure, initial encounter (principal); B95.62 Methicillin resistant Staphylococcus aureus infection as the cause of diseases classified elsewhere; E11.65 Type 2 diabetes mellitus with hyperglycemia; Z91.19 Patient's noncompliance with other medical treatment and regimen; I11.0 Hypertensive heart disease with heart failure; I50.9 Heart failure, unspecified; I25.10 Atherosclerotic heart disease of native coronary artery without angina pectoris; J44.9 Chronic obstructive pulmonary disease, unspecified; F41.9 Anxiety disorder, unspecified
CPT/HCPCS: 72193; 80053; 85025; 86403; 87070; 87186; 96374; 99284; J1815; J7030; Q9967; 87205

== ENCOUNTER → 2017-06-08 | Outpatient (CLI) | payer MEDICAID ==
[~2017-06-08] MED LIST changes: +BACT800T5 PO
[2017-06-08 11:42] LABS: AUTOMATED NEUTROPHIL # 4.1 TH/MM3 (1.8-7.7); BASOPHIL # 0.1 TH/MM3 (0-0.2); EOSINOPHIL # 0.1 TH/MM3 (0-0.4); EOSINOPHIL % 1.1 % (0.0-4.0); HEMATOCRIT 38.1 % (35.0-46.0); HEMOGLOBIN 13.2 GM/DL (11.6-15.3); LYMPH % 41.2 % (9.0-44.0); LYMPHOCYTE # 3.4 TH/MM3 (1.0-4.8); MEAN CELL VOLUME 87.7 FL (80.0-100.0); MEAN CORPUSCULAR HEMOGLOBIN 30.3 PG (27.0-34.0); MEAN CORPUSCULAR HGB CONC 34.6 % (32.0-36.0); MEAN PLATELET VOLUME 9.9 FL (7.0-11.0); MONOCYTE # 0.5 TH/MM3 (0-0.9); NEUT % 50.7 % (16.0-70.0); PLATELET COUNT 186 TH/MM3 (150-450); RED BLOOD COUNT 4.34 MIL/MM3 (4.00-5.30); RED CELL DISTRIBUTION WIDTH 13.7 % (11.6-17.2); WHITE BLOOD COUNT 8.1 TH/MM3 (4.0-11.0)
[2017-06-08 11:46] LABS: BACTERIA, URINE RARE /hpf; BILIRUBIN, URINE NEG (NEG); BLOOD, URINE NEG (NEG); GLUCOSE,URINE 1000 mg/dL (NEG); KETONE, URINE NEG (NEG); NITRITE,URINE NEG (NEG); SQUAMOUS EPITHELIAL CELL URINE 6 /hpf (0-5); URINE COLOR LIGHT-YELLOW (YELLW/STRAW); URINE LEUKOCYTE ESTERASE NEG (NEG)
[2017-06-08 12:22] LABS: ALBUMIN 3.8 GM/DL (3.4-5.0); AST (GOT) 13 U/L (15-37); BICARBONATE 25.4 MEQ/L (21.0-32.0); BLOOD UREA NITROGEN 24 MG/DL (7-18); CALCIUM 9.7 MG/DL (8.5-10.1); CHLORIDE 108 MEQ/L (98-107); CREATININE 1.17 MG/DL (0.50-1.00); GLOMERULAR FILTRATION RATE 59 ML/MIN (>89); GLUCOSE,FASTING 56 MG/DL (74-99); SODIUM (NA) 142 MEQ/L (136-145)
[2017-06-08 12:26] LABS: ALKALINE PHOSPHATASE 54 U/L (45-117); ALT (GPT) 23 U/L (10-53); TOTAL BILIRUBIN ADULT 0.5 MG/DL (0.2-1.0); TOTAL PROTEIN 7.7 GM/DL (6.4-8.2)
--- NOTE | 2017-06-10 09:25 | EKG ---
Date Performed: 06/08/2017 Time Performed: 11:34:52 PTAGE: 51 years EKG: Sinus rhythm NONSPECIFIC T-WAVE ABNORMALITY BORDERLINE ECG PREVIOUS TRACING : 07/14/2016 01.36 DOCTOR: Jaycob Morrow Interpretating Date/Time 06/10/2017 09:18:21
== END ==
LOC: CPRE 11:20
PROVIDERS: ATTEND Obstetrics & Gynecology Gynecology
DX: Z01.810 Encounter for preprocedural cardiovascular examination (principal); Z01.812 Encounter for preprocedural laboratory examination; Z01.818 Encounter for other preprocedural examination; N39.3 Stress incontinence (female) (male); R94.31 Abnormal electrocardiogram [ECG] [EKG]
CPT/HCPCS: 36415; 80053; 81001; 85025; 93005

== ENCOUNTER 2017-06-14 23:01 | Emergency (ER) | payer MEDICAID ==
[~2017-06-14] VITALS: Ht 154.9 cm; Wt 83.0 kg
[~2017-06-14 23:01] MED LIST changes: -ACETAMINOPHEN 1000 MG/100 ML 100 ML IV ONE; +BACT800T5 PO; +CEPH-460 PO; -CHLORHEXIDINE GLUCONATE 2 % 1 PACK (2 CLOTHS) TOPICAL PRN; -DEXAMETHASONE SOD PHOS 4 MG/ML VIAL IV ONE; -DO NOT ADM ANY ANTICOAGULANT DRUGS PRN; -INSULIN HUMAN REGULAR 1,000 UNITS/10 ML VIAL SQ PRN; -KETOROLAC TROMETHAMINE 30 MG/ML (IVP) VIAL IV PUSH ONE; -KETOROLAC TROMETHAMINE 30 MG/ML (IVP) VIAL IV PUSH PRN; -LACTATED RINGER'S 1000 ML IV PRN; -LIDOCAINE 1%/EPINEPHrine 1:100,000 SOLN 50 ML VIAL ONE; -LIDOCAINE HCL 1% PF 5 ML SYRINGE OTHER ONE; -METHYLENE BLUE 10 MG/ML VIAL ONE; -METOPROLOL TARTRATE 25 MG TAB PO PRN; -MIDAZOLAM HCL 2 MG/2 ML VIAL ONE; -MORPHINE SULFATE 4 MG/ML INJ ONE; -ONDANSETRON HCL 4 MG/2 ML VIAL IV ONE; -ONDANSETRON HCL 4 MG/2 ML VIAL IV PUSH PRN; -PHENYLEPH/NS 1000 MCG/10 ML SYR IV ONE; -POVIDONE IODINE 5% (ANTISEPSIS KIT) 4 APPLICATIONS EACH NARE PRN; -PROPOFOL 200 MG/20 ML AMP IV ONE; -SODIUM CHLORID 0.9% 500 ML IV PRN; -SUCCINYLCHOLINE CHLORIDE 100 MG/5 ML SYRINGE IV PUSH ONE; -ceFAZolin 2 GM/DEX PREMIX 50 ML IV SCH; -traMADol HCL 50 MG TAB PO PRN
[2017-06-14 23:16] VITALS: BP 161/81; PULSE 88; RESP 18; TEMP 97.8; O2SAT 99
[2017-06-14] MEDS ORDERED: ACETAMINOPHEN/HYDROcodone 325 MG/5 MG TAB PO ONE (23:45)
--- NOTE | 2017-06-15 00:46 | PD ---
HPI . post operative bleeding Chief Complaint: Bleeding Time Seen by Provider: 23:08 Travel History International Travel<30 days: No Contact w/Intl Traveler<30days: No Traveled to known affect area: No History of Present Illness HPI Patient is a 51-year-old female who today had a bladder suspension surgery done by Drs. Manny Spain. Apparently patient was having urinary overflow incontinence and needed to have a trans-obturator mid urethral sling done it was done around 10 AM this morning she went home she was fine however washing today in the shower she knocked off the Dermabond and started to bleed from the right inguinal fold where her leg meets her groin. She put a pad on and called 911 paramedics transport her she is not having heavy bleeding but she is still bleeding from an incision on the right leg. She has not called her surgeon she has not done anything to try to alleviate the symptoms and she in the ER continues to have oozing from her incision site no shortness of breath no lightheadedness no orthostatic changes no dizziness. PFSH Past Medical History Hx Anticoagulant Therapy: Yes Asthma: Yes Autoimmune Disease: No Blood Disorders: No Anxiety: Yes Depression: No Heart Rhythm Problems: Yes (EPISODE OF UNSUSTAINED VTACH ON PREVIOUS ADMISSION) Cancer: No Cardiac Catheterization: Yes Cardiovascular Problems: Yes (CAD, CHF) High Cholesterol: Yes Chest Pain: Yes Congestive Heart Failure: Yes COPD: Yes Cerebrovascular Accident: No Coronary Artery Disease: Yes Diabetes: Yes (TYPE 1) Patient Takes Glucophage: Yes Diminished Hearing: No Endocrine: Yes Gastrointestinal Disorders: No GERD: Yes Genitourinary: Yes (OVERACTIVE BLADDER, INCONTINENCE) Headaches: No Hepatitis: No Hiatal Hernia: No Heparin Induced Thrombocytopen: No Hypertension: Yes Immune Disorder: No Implanted Vascular Access Dvce: No Musculoskeletal: No Neurologic: Yes (NEUROPATHY) Psychiatric: No Reproductive: Yes (HYSTERECTOMY) Respiratory: Yes (ASTHMA, COPD) Migraines: No Myocardial Infarction: Yes Pneumonia: Yes Seizures: No Sleep Apnea: No Thyroid Disease: No Tetanus Vaccination: Unknown Influenza Vaccination: Yes ?: Not Menopausal: Yes : 4 Para: 4 Tubal Ligation: Yes Past Surgical History Abdominal Surgery: No AICD: No Cardiac Surgery: Yes (TRIPLE BYPASS 2011) Coronary Artery Bypass Graft: Yes (CABG X 23 NOV 2011) Coronary Stent: Yes Ear Surgery: No Endocrine Surgery: No Eye Surgery: No Genitourinary Surgery: Yes (BLADDER CLAMP) Gynecologic Surgery: Yes (HYSTERECTOMY, TUBaL LIGATION) Hysterectomy: Yes Joint Replacement: No Neurologic Surgery: No Oral Surgery: No Pacemaker: No Thoracic Surgery: No Other Surgery: Yes (R HAND ) Family History Family Myocardial Infarction: Yes (MOTHER AND FATHER) Social History Alcohol Use: Yes (OCC) Tobacco Use: No Substance Use: No Allergies-Medications (Allergen,Severity, Reaction): Coded Allergies: benazepril (Verified Allergy, Severe, Swelling, 06/14/17) ANGIOEDEMA TO ENALIPRIIL captopril (Verified Allergy, Severe, Swelling, 06/14/17) ANGIOEDEMA TO ENALIPRIIL enalaprilat (Verified Allergy, Severe, Swelling, 06/14/17) ANGIOEDEMA TO ENALIPRIIL fosinopril (Verified Allergy, Severe, Swelling, 06/14/17) ANGIOEDEMA TO ENALIPRIIL lisinopril (Verified Allergy, Severe, Swelling, 06/14/17) ANGIOEDEMA TO ENALIPRIIL quinapril (Verified Allergy, Severe, Swelling, 06/14/17) ANGIOEDEMA TO ENALIPRIIL *MDRO Multi-Drug Resistant Organism (Verified Allergy, Unknown, 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 Re-start Lasix 20mg daily on Tuesday 03/21 Ventolin Hfa 18 GM Inh (Albuterol Sulfate) 90 Mcg/Act Aer 2 Puff INH Q4H PRN Metoprolol Tartrate 25 Mg Tab 25 Mg PO Q12H Reported Hydralazine HCl 25 Mg Tablet 25 Mg PO TID Ambien (Zolpidem Tartrate) 10 Mg Tab 10 Mg PO HS PRN Januvia (Sitagliptin Phosphate) 50 Mg Tab 50 Mg PO DAILY Amlodipine (Amlodipine Besylate) 10 Mg Tab 10 Mg PO DAILY Lyrica (Pregabalin) 150 Mg Cap 150 Mg PO BID Lantus Inj (Insulin Glargine) 1,000 Unit/10 Ml Vial 40 Units SQ BID Proair Hfa 8.5 GM Inh (Albuterol Sulfate) 90 Mcg/Act Aer 1 Puff INH Q4H PRN 108 mcg/actuation Valsartan 160 Mg Tab 160 Mg PO BID Farxiga (Dapagliflozin) 5 Mg Tab 5 Mg PO DAILY Fenofibrate 145 Mg Tab 145 Mg PO DAILY Effient (Prasugrel) 10 Mg Tab 10 Mg PO DAILY Novolog Inj (Insulin Aspart) 100 Unit/Ml Inj 10 Unit SQ TIDAC Labetalol (Labetalol HCl) 200 Mg Tab 200 Mg PO BID Spiriva Handihaler (Tiotropium Inh) 18 Mcg Cap 18 Mcg INH DAILY 1 capsule = 18 mcg Spironolactone 50 Mg Tab 50 Mg PO DAILY Nitroglycerin SL (Nitroglycerin) 0.4 Mg Subl 0.4 Mg SL DIRECTED PRN ONE TABLET UNDER THE TONGUE NEEDED FOR CHEST PAIN, MAY REPEAT EVERY FIVE MINUTES FOR A TOTAL OF 3 DOSES OR CALL 911 IF NO RELIEF Metformin (Metformin HCl) 1,000 Mg Tab 1,000 Mg PO BIDPC With meals Atorvastatin (Atorvastatin Calcium) 80 Mg Tab 80 Mg PO HS Aspirin 81 (Aspirin) 81 Mg Tabdr 81 Mg PO DAILY Review of Systems Except as stated in HPI: all other systems reviewed are Neg Physical Exam Narrative GENERAL: Awake alert in no apparent distress SKIN: Warm and dry. At the right inguinal fold of her leg groin to her obturator leg there is a less than 5 mm incision that is oozing blood and there is a collection of blood on her pubic hair that is clotted. HEAD: Atraumatic. Normocephalic. EYES: Pupils equal and round. No scleral icterus. No injection or drainage. ENT: No nasal bleeding or discharge. Mucous membranes pink and moist. NECK: Trachea midline. No JVD. CARDIOVASCULAR: Regular rate and rhythm. RESPIRATORY: No accessory muscle use. Clear to auscultation. Breath sounds equal bilaterally. GASTROINTESTINAL: Abdomen soft, non-tender, nondistended. Hepatic and splenic margins not palpable. MUSCULOSKELETAL: Extremities at right leg to groin skin fold 1cm linear lac oozing blood --> dermabonded and good success at hemastasis NEUROLOGICAL: Awake and alert. No obvious cranial nerve deficits. Motor grossly within normal limits. Five out of 5 muscle strength in the arms and legs. Normal speech. PSYCHIATRIC: Appropriate mood and affect; insight and judgment normal. Data Data Last Documented VS Vital Signs Date Time Temp Pulse Resp B/P (MAP) Pulse Ox O2 Delivery O2 Flow Rate FiO2 06/14/17 23:16 97.8 88 18 161/81 (107) 99 Room Air Orders Orders Acetamin-Hydrocod 325-5 Mg ([place] 5-325 (06/14/17 23:45) Ed Discharge Order (06/15/17 03:18) MDM Medical Decision Making Medical Screen Exam Complete: Yes Emergency Medical Condition: Yes Differential Diagnosis post operative complication bleeding from incision site Narrative Course I dermabonded her incison site and then reinforced the other side to prevent bleweing then D/c to call in AM for Dr Spain the surgeon for follow up Procedures Procedure Narrative Procedure note I Dermabond the incision site with good results bleeding stops good hemostasis and she will be discharged to follow-up with Dr. Manny Spain to call for an appointment to return to the ER if it worsens Diagnosis Primary Impression: Postoperative complication Patient Instructions: General Instructions, Postoperative Bleeding (ED) Disposition: 01 DISCHARGE HOME Condition: Good Beto Sandoval MD Jun 15, 2017 00:46
== END 2017-06-15 04:09 | disposition home or self-care (01) ==
LOC: NEPC 23:01
DX: T81.89XA Other complications of procedures, not elsewhere classified, initial encounter (principal); J44.9 Chronic obstructive pulmonary disease, unspecified; E10.9 Type 1 diabetes mellitus without complications; Z79.01 Long term (current) use of anticoagulants
CPT/HCPCS: 12001

== ENCOUNTER → 2017-06-14 | Day surgery (SDC) | payer MEDICAID ==
--- NOTE | 2017-06-08 14:38 | MH ---
cc: Manny Spain MD DATE OF ADMISSION: 06/14/2017 REASON FOR ADMISSION: Scheduled for mid-urethral sling for stress incontinence. HISTORY OF PRESENT ILLNESS: The patient is a 51-year-old black female, 3, para 3, who has issues with stress incontinence. She has had a urodynamics test that showed capacity of approximately 300 mL with leak at 150 mL. No detrusor instability and no significant postvoid residual. The patient was given her options and has opted for a sling procedure. PAST MEDICAL HISTORY: Notable for coronary artery vascular disease, adult onset diabetes with marginal control, sleep apnea, COPD, hypercholesterolemia. MEDICATIONS: 1. Lyrica 150 mg b.i.d. 2. Amlodipine 10 mg daily. 3. Januvia 50 mg every day. 4. Forxiga one every day. 5. Subcutaneous insulin, Lantus sliding scale. 6. Valsartan 150 mg day. 7. Labetalol 200 mg every day. 8. Furosemide 40 mg daily. 9. Aspirin 81 mg daily. ALLERGIES: ENALAPRIL causes angioedema. PAST SURGICAL HISTORY: Coronary artery bypass graft in 2013, hysterectomy. OB HISTORY: Four vaginal deliveries. [employer] ARCHITECT HISTORY: No STDs, no abnormal Pap smears. FAMILY HISTORY: Noncontributory. SOCIAL HISTORY: A [id number] smoking history. No alcohol or drugs. REVIEW OF SYSTEMS: As above. No chest pain, orthopnea, PND. No nausea, vomiting, chills. No vaginal bleeding or discharge. Remainder of 14-point review negative. PHYSICAL EXAMINATION: VITAL SIGNS: She is afebrile. Vital signs stable. Blood pressure is 160/80. Height is 5 feet, weight is 200 pounds, BMI is 38. GENERAL: The patient is alert and oriented, in no acute distress, no signs of cognitive dysfunction or depression. HEENT: Within normal limits. NECK: Supple. No JVD. CHEST: Clear. HEART: Regular rate and rhythm. ABDOMEN: Soft, nontender. No hepatosplenomegaly. PELVIC EXAMINATION: Will be detailed under anesthesia. In the office, we note stage II pelvic organ prolapse with hypermobility of urethra. Further exam under anesthesia. EXTREMITIES: Warm. SKIN: Without rashes. NEUROLOGIC: Nonfocal. No DVT signs. ASSESSMENT AND PLAN: The patient with stress urinary incontinence with documented leak point at 50% of capacity. She is aware of the risks, benefits and alternatives of the planned procedure including damage to surrounding organs, bleeding, infection, failure to stop incontinence, possibility of retention, infection, erosion, pain with intercourse. The patient's risks are elevated because of her smoking and diabetes. She is aware of this and note her last A1c was less than 7.5. We anticipate outpatient procedure. We will use deep venous thrombosis with sequential compression device and antibiotic prophylaxis, 2 grams of Ancef IV. MD BRIA Casas/CATRACHITO , 02:11 PM , 02:37 PM
[~2017-06-14] VITALS: Ht 154.9 cm; Wt 81.0 kg
[~2017-06-14] MED LIST changes: +ACETAMINOPHEN 1000 MG/100 ML 100 ML IV ONE; -BACT800T5 PO; -CEPH-460 PO; +CHLORHEXIDINE GLUCONATE 2 % 1 PACK (2 CLOTHS) TOPICAL PRN; +DEXAMETHASONE SOD PHOS 4 MG/ML VIAL IV ONE; +DO NOT ADM ANY ANTICOAGULANT DRUGS PRN; +INSULIN HUMAN REGULAR 1,000 UNITS/10 ML VIAL SQ PRN; +KETOROLAC TROMETHAMINE 30 MG/ML (IVP) VIAL IV PUSH ONE; +KETOROLAC TROMETHAMINE 30 MG/ML (IVP) VIAL IV PUSH PRN; +LACTATED RINGER'S 1000 ML IV PRN; +LIDOCAINE 1%/EPINEPHrine 1:100,000 SOLN 50 ML VIAL ONE; +LIDOCAINE HCL 1% PF 5 ML SYRINGE OTHER ONE; +METHYLENE BLUE 10 MG/ML VIAL ONE; +METOPROLOL TARTRATE 25 MG TAB PO PRN; +MIDAZOLAM HCL 2 MG/2 ML VIAL ONE; +MORPHINE SULFATE 4 MG/ML INJ ONE; +ONDANSETRON HCL 4 MG/2 ML VIAL IV ONE; +ONDANSETRON HCL 4 MG/2 ML VIAL IV PUSH PRN; +PHENYLEPH/NS 1000 MCG/10 ML SYR IV ONE; +POVIDONE IODINE 5% (ANTISEPSIS KIT) 4 APPLICATIONS EACH NARE PRN; +PROPOFOL 200 MG/20 ML AMP IV ONE; +SODIUM CHLORID 0.9% 500 ML IV PRN; +SUCCINYLCHOLINE CHLORIDE 100 MG/5 ML SYRINGE IV PUSH ONE; +ceFAZolin 2 GM/DEX PREMIX 50 ML IV SCH; +traMADol HCL 50 MG TAB PO PRN
--- NOTE | 2017-06-14 11:57 | MP ---
cc: Manny Spain MD DATE OF OPERATION: 06/14/2017 PREOPERATIVE DIAGNOSIS: Stress urinary incontinence (Code 39.3). POSTOPERATIVE DIAGNOSES: 1. Stress urinary incontinence (Code 39.3). 2. Midline cystocele (Code N81.11). PROCEDURE: 1. Transobturator midurethral sling, [facility] Desara sling, polypropylene (Code 14939). 2, Anterior repair (code 34321). 3. Diagnostic cystoscopy (Code 47088). SURGEON: Manny Sapin MD ANESTHESIA: General endotracheal. ESTIMATED BLOOD LOSS: 10 mL. URINE OUTPUT: 200 mL. FLUIDS: 1000 crystalloid. LABOR SUPERVISOR: [facility] staff x2. FINDINGS: 1. External genitalia normal. 2. POP-Q score: Aa is -1, Ap is 0. Point C is -8. Total vaginal length is 10. Genital hiatus is 6. Perineal body is 4. 3. Following repair Aa is -3. 4. Cystoscopy shows normal trigone, good coaptation of urethra. Ureteral orifices patent x2. Dome and base of the bladder normal. SPECIMENS: None. COMPLICATIONS: None. DISPOSITION: To Recovery stable. COUNTS: Instrument count, needle count and sponge counts correct. DRAINS: Sullivan catheter. ANTIBIOTIC PROPHYLAXIS: Ancef 2 grams. DVT PROPHYLAXIS: Sequential compression devices. TIMEOUT PROCEDURE AND IDENTIFICATION: Per protocol. SUMMARY OF INDICATIONS FOR PROCEDURE: The patient with stress urinary incontinence. She had urodynamic studies that showed a leak at approximately 50% capacity with no detrusor instability. The patient has been apprised of options, and she chose to proceed with surgical correction. OPERATIVE PROCEDURE: The patient was taken to the operative theatre, identified, prepped and draped in standard fashion for the prepped for planned procedure. She was in dorsal supine position, with careful attention paid to placement of the with legs in the stirrups with waited to avoid undue stress to sensitive neurovascular structures. The above findings were noted and neurovascular integrity returned to documented. Sullivan catheter was placed. Methylene blue was instilled into the bladder. The obturator spaces were identified, infiltrated with epinephrine and lidocaine solution. Mucosa was infiltrated and a midline incision was made with scissors. The urethra was mobilized and there was no spill of methylene blue. The C-hooks were placed from a lateral to medial position and the tape was placed in the mid-urethra using a scalpel handle as a spacer. Anterior repair was performed in the standard fashion without complication using delayed absorbable suture. Hemostatic Matrix was used to obviate the need for packing. Cystoscopy was performed with above findings. The vagina was inspected. The area was hemostatic. The patient reversed from anesthesia and taken to the recovery room in stable condition. MD BRIA Casas/SB , 11:19 AM , 11:56 AM
[2017-06-14 12:08] VITALS: BP 144/81; PULSE 84; RESP 20; TEMP 97.4; O2SAT 96
== END | disposition home or self-care (01) ==
LOC: HSDC 06:56
PROVIDERS: ATTEND Obstetrics & Gynecology Gynecology
DX: N39.3 Stress incontinence (female) (male) (principal); E11.9 Type 2 diabetes mellitus without complications; E78.00 Pure hypercholesterolemia, unspecified; J44.9 Chronic obstructive pulmonary disease, unspecified; G47.30 Sleep apnea, unspecified; Z79.4 Long term (current) use of insulin; Z79.82 Long term (current) use of aspirin; Z87.891 Personal history of nicotine dependence; Z90.710 Acquired absence of both cervix and uterus; Z95.1 Presence of aortocoronary bypass graft
CPT/HCPCS: 00860; 57288; 82948; C1771; J0131; J0330; J0690; J1100; J1885; J2250; J2270; J2370; J2405; J3010; J7120

== ENCOUNTER 2017-08-04 17:05 | Inpatient (IN) | payer MEDICAID ==
[2017-08-04] VITALS (8 sets, daily range): BP systolic 92–110; BP diastolic 50–58; PULSE 78–88; RESP 17–20; TEMP 97.1–97.6; O2SAT 94–98
[~2017-08-04] VITALS: Ht 154.9 cm; Wt 75.8 kg
[~2017-08-04 17:05] MED LIST changes: -BACT800T5 PO; -CEPH-460 PO
[2017-08-04] MEDS ORDERED: SODIUM CHLOR 0.9% 1000 ML INJ 1,000 ML IV ONE (18:50)
[2017-08-04] MEDS ORDERED: SODIUM CHLORIDE 0.9% FLUSH 10 ML FLUSH IVF PRN (19:00)
--- NOTE | 2017-08-04 19:10 | PD ---
HPI Chief Complaint: Syncope/Near-Syncope Time Seen by Provider: 18:49 Travel History International Travel<30 days: No Contact w/Intl Traveler<30days: No Traveled to known affect area: No History of Present Illness HPI 51-year-old female with history of hypertension, CHF, CABG 3, COPD, diabetes presents emergency department for evaluation. Patient states today she had 2 episodes where she "just when out." She woke up on the ground. She did strike her head once. She states this is never happened to her before. She states following the incident she did not recall any preceding factors. She has not been recently ill. She has had no fever chills. She reports no significant pain at this time. She has no other symptoms to report. PFSH Past Medical History Hx Anticoagulant Therapy: Yes Asthma: Yes Autoimmune Disease: No Blood Disorders: No Anxiety: Yes Depression: No Heart Rhythm Problems: Yes (EPISODE OF UNSUSTAINED VTACH ON PREVIOUS ADMISSION) Cancer: No Cardiac Catheterization: Yes Cardiovascular Problems: Yes (CAD, CHF) High Cholesterol: Yes Chest Pain: Yes Congestive Heart Failure: Yes COPD: Yes Cerebrovascular Accident: No Coronary Artery Disease: Yes Diabetes: Yes (TYPE 1) Patient Takes Glucophage: Yes Diminished Hearing: No Endocrine: Yes Gastrointestinal Disorders: No GERD: Yes Genitourinary: Yes (OVERACTIVE BLADDER, INCONTINENCE) Headaches: No Hepatitis: No Hiatal Hernia: No Heparin Induced Thrombocytopen: No Hypertension: Yes Immune Disorder: No Implanted Vascular Access Dvce: No Musculoskeletal: No Neurologic: Yes (NEUROPATHY) Psychiatric: No Reproductive: Yes (HYSTERECTOMY) Respiratory: Yes (ASTHMA, COPD) Migraines: No Myocardial Infarction: Yes Pneumonia: Yes Seizures: No Sleep Apnea: No Thyroid Disease: No ?: Not Menopausal: Yes : 4 Para: 4 Tubal Ligation: Yes Past Surgical History Abdominal Surgery: No AICD: No Cardiac Surgery: Yes (TRIPLE BYPASS 2011) Coronary Artery Bypass Graft: Yes (CABG X 23 NOV 2011) Coronary Stent: Yes Ear Surgery: No Endocrine Surgery: No Eye Surgery: No Genitourinary Surgery: Yes (BLADDER CLAMP) Gynecologic Surgery: Yes (HYSTERECTOMY, TUBaL LIGATION) Hysterectomy: Yes Joint Replacement: No Neurologic Surgery: No Oral Surgery: No Pacemaker: No Thoracic Surgery: No Other Surgery: Yes (R HAND ) Family History Family Myocardial Infarction: Yes (MOTHER AND FATHER) Social History Alcohol Use: Yes (OCC) Tobacco Use: Yes ("A COUPLE CIGARETTES/DAY") Substance Use: No Allergies-Medications (Allergen,Severity, Reaction): Coded Allergies: benazepril (Verified Allergy, Severe, Swelling, 08/04/17) ANGIOEDEMA TO ENALIPRIIL captopril (Verified Allergy, Severe, Swelling, 08/04/17) ANGIOEDEMA TO ENALIPRIIL enalaprilat (Verified Allergy, Severe, Swelling, 08/04/17) ANGIOEDEMA TO ENALIPRIIL fosinopril (Verified Allergy, Severe, Swelling, 08/04/17) ANGIOEDEMA TO ENALIPRIIL lisinopril (Verified Allergy, Severe, Swelling, 08/04/17) ANGIOEDEMA TO ENALIPRIIL quinapril (Verified Allergy, Severe, Swelling, 08/04/17) ANGIOEDEMA TO ENALIPRIIL *MDRO Multi-Drug Resistant Organism (Verified Allergy, Unknown, 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 Re-start Lasix 20mg daily on Tuesday 03/21 Ventolin Hfa 18 GM Inh (Albuterol Sulfate) 90 Mcg/Act Aer 2 Puff INH Q4H PRN Metoprolol Tartrate 25 Mg Tab 25 Mg PO Q12H Reported Hydralazine HCl 25 Mg Tablet 25 Mg PO TID Ambien (Zolpidem Tartrate) 10 Mg Tab 10 Mg PO HS PRN Januvia (Sitagliptin Phosphate) 50 Mg Tab 50 Mg PO DAILY Amlodipine (Amlodipine Besylate) 10 Mg Tab 10 Mg PO DAILY Lyrica (Pregabalin) 150 Mg Cap 150 Mg PO BID Lantus Inj (Insulin Glargine) 1,000 Unit/10 Ml Vial 40 Units SQ BID Proair Hfa 8.5 GM Inh (Albuterol Sulfate) 90 Mcg/Act Aer 1 Puff INH Q4H PRN 108 mcg/actuation Valsartan 160 Mg Tab 160 Mg PO BID Farxiga (Dapagliflozin) 5 Mg Tab 5 Mg PO DAILY Fenofibrate 145 Mg Tab 145 Mg PO DAILY Effient (Prasugrel) 10 Mg Tab 10 Mg PO DAILY Novolog Inj (Insulin Aspart) 100 Unit/Ml Inj 10 Unit SQ TIDAC Labetalol (Labetalol HCl) 200 Mg Tab 200 Mg PO BID Spiriva Handihaler (Tiotropium Inh) 18 Mcg Cap 18 Mcg INH DAILY 1 capsule = 18 mcg Spironolactone 50 Mg Tab 50 Mg PO DAILY Nitroglycerin SL (Nitroglycerin) 0.4 Mg Subl 0.4 Mg SL DIRECTED PRN ONE TABLET UNDER THE TONGUE NEEDED FOR CHEST PAIN, MAY REPEAT EVERY FIVE MINUTES FOR A TOTAL OF 3 DOSES OR CALL 911 IF NO RELIEF Metformin (Metformin HCl) 1,000 Mg Tab 1,000 Mg PO BIDPC With meals Atorvastatin (Atorvastatin Calcium) 80 Mg Tab 80 Mg PO HS Aspirin 81 (Aspirin) 81 Mg Tabdr 81 Mg PO DAILY Review of Systems Except as stated in HPI: all other systems reviewed are Neg Physical Exam Narrative GENERAL: Well-nourished female patient, no acute distress. SKIN: Focused skin assessment warm/dry. HEAD: Atraumatic. Normocephalic. EYES: Pupils equal and round. No scleral icterus. No injection or drainage. ENT: No nasal bleeding or discharge. Mucous membranes pink and moist. NECK: Trachea midline. No JVD. CARDIOVASCULAR: Regular rate and rhythm. No murmur appreciated. RESPIRATORY: No accessory muscle use. Diminished to auscultation. Breath sounds equal bilaterally. GASTROINTESTINAL: Abdomen soft, non-tender, nondistended. Hepatic and splenic margins not palpable. MUSCULOSKELETAL: No obvious deformities. No clubbing. No cyanosis. NEUROLOGICAL: Awake and alert. No obvious cranial nerve deficits. Motor grossly within normal limits. Normal speech. PSYCHIATRIC: Appropriate mood and affect; insight and judgment normal. Data Data Last Documented VS Vital Signs Date Time Temp Pulse Resp B/P (MAP) Pulse Ox O2 Delivery O2 Flow Rate FiO2 08/04/17 19:05 96/54 (68) 08/04/17 19:04 98 Room Air 08/04/17 17:18 97.1 83 18 Orders Orders Electrocardiogram (08/04/17 18:50) Basic Metabolic Panel (Bmp) (08/04/17 18:50) Complete Blood Count With Diff (08/04/17 18:50) Ckmb (Isoenzyme) Profile (08/04/17 18:50) Troponin I (08/04/17 18:50) Act Partial Throm Time (Ptt) (08/04/17 18:50) Prothrombin Time / Inr (Pt) (08/04/17 18:50) Urinalysis - C+S If Indicated (08/04/17 18:50) Chest, Single Ap (08/04/17 18:50) Ecg Monitoring (08/04/17 18:50) Iv Access Insert/Monitor (08/04/17 18:50) Oximetry (08/04/17 18:50) Sodium Chloride 0.9% Flush (Ns Flush) (08/04/17 19:00) Sodium Chlor 0.9% 1000 Ml Inj (Ns 1000 M (08/04/17 18:50) Orthostatic Vital Signs (08/04/17 18:50) Ct Brain W/O Iv Contrast(Rout) (08/04/17 ) CKMB (08/04/17 19:02) CKMB% (08/04/17 19:02) Admit Order (Ed Use Only) (08/04/17 21:37) Labs Laboratory Tests Test 08/04/17 19:02 08/04/17 20:10 White Blood Count 8.7 TH/MM3 Red Blood Count 5.06 MIL/MM3 Hemoglobin 15.3 GM/DL Hematocrit 45.1 % Mean Corpuscular Volume 89.2 FL Mean Corpuscular Hemoglobin 30.3 PG Mean Corpuscular Hemoglobin Concent 34.0 % Red Cell Distribution Width 14.0 % Platelet Count 262 TH/MM3 Mean Platelet Volume 11.2 FL Neutrophils (%) (Auto) 50.4 % Lymphocytes (%) (Auto) 39.7 % Monocytes (%) (Auto) 7.8 % Eosinophils (%) (Auto) 1.4 % Basophils (%) (Auto) 0.7 % Neutrophils # (Auto) 4.4 TH/MM3 Lymphocytes # (Auto) 3.5 TH/MM3 Monocytes # (Auto) 0.7 TH/MM3 Eosinophils # (Auto) 0.1 TH/MM3 Basophils # (Auto) 0.1 TH/MM3 CBC Comment DIFF FINAL Differential Comment Prothrombin Time 10.6 SEC Prothromb Time International Ratio 1.0 RATIO Activated Partial Thromboplast Time 23.6 SEC Blood Urea Nitrogen 34 MG/DL Creatinine 3.42 MG/DL Random Glucose 263 MG/DL Calcium Level 9.0 MG/DL Sodium Level 137 MEQ/L Potassium Level 3.7 MEQ/L Chloride Level 99 MEQ/L Carbon Dioxide Level 24.4 MEQ/L Anion Gap 14 MEQ/L Estimat Glomerular Filtration Rate 17 ML/MIN Total Creatine Kinase 116 U/L Creatine Kinase MB 0.7 NG/ML Troponin I LESS THAN 0.02 NG/ML Urine Color Lissette Urine Turbidity CLOUDY Urine pH 5.0 Urine Specific [place] 1.020 Urine Protein 100 mg/dL Urine Glucose (UA) >=500 mg/dL Urine Ketones NEG mg/dL Urine Occult Blood NEG Urine Nitrite NEG Urine Bilirubin NEG Urine Urobilinogen 4.0 OR GREATER mg/dL Urine Leukocyte Esterase NEG Urine WBC 1 /hpf Urine Squamous Epithelial Cells 3 /hpf Urine Hyaline Casts 108 /lpf Urine Granular Casts 7 /lpf Microscopic Urinalysis Comment CULT NOT INDICATED MDM Medical Decision Making Medical Screen Exam Complete: Yes Emergency Medical Condition: Yes Medical Record Reviewed: Yes Differential Diagnosis Syncope versus near syncope versus electrolyte abnormality versus dehydration versus infectious process versus arrhythmia Narrative Course 51-year-old female presents emergency department for evaluation of 2 syncopal episodes that occurred today. Patient appears without distress. Her vital signs are stable. Laboratory Tests Test 08/04/17 19:02 08/04/17 20:10 White Blood Count 8.7 TH/MM3 Red Blood Count 5.06 MIL/MM3 Hemoglobin 15.3 GM/DL Hematocrit 45.1 % Mean Corpuscular Volume 89.2 FL Mean Corpuscular Hemoglobin 30.3 PG Mean Corpuscular Hemoglobin Concent 34.0 % Red Cell Distribution Width 14.0 % Platelet Count 262 TH/MM3 Mean Platelet Volume 11.2 FL Neutrophils (%) (Auto) 50.4 % Lymphocytes (%) (Auto) 39.7 % Monocytes (%) (Auto) 7.8 % Eosinophils (%) (Auto) 1.4 % Basophils (%) (Auto) 0.7 % Neutrophils # (Auto) 4.4 TH/MM3 Lymphocytes # (Auto) 3.5 TH/MM3 Monocytes # (Auto) 0.7 TH/MM3 Eosinophils # (Auto) 0.1 TH/MM3 Basophils # (Auto) 0.1 TH/MM3 CBC Comment DIFF FINAL Differential Comment Prothrombin Time 10.6 SEC Prothromb Time International Ratio 1.0 RATIO Activated Partial Thromboplast Time 23.6 SEC Blood Urea Nitrogen 34 MG/DL Creatinine 3.42 MG/DL Random Glucose 263 MG/DL Calcium Level 9.0 MG/DL Sodium Level 137 MEQ/L Potassium Level 3.7 MEQ/L Chloride Level 99 MEQ/L Carbon Dioxide Level 24.4 MEQ/L Anion Gap 14 MEQ/L Estimat Glomerular Filtration Rate 17 ML/MIN Total Creatine Kinase 116 U/L Creatine Kinase MB 0.7 NG/ML Troponin I LESS THAN 0.02 NG/ML Urine Color Lissette Urine Turbidity CLOUDY Urine pH 5.0 Urine Specific [place] 1.020 Urine Protein 100 mg/dL Urine Glucose (UA) >=500 mg/dL Urine Ketones NEG mg/dL Urine Occult Blood NEG Urine Nitrite NEG Urine Bilirubin NEG Urine Urobilinogen 4.0 OR GREATER mg/dL Urine Leukocyte Esterase NEG Urine WBC 1 /hpf Urine Squamous Epithelial Cells 3 /hpf Urine Hyaline Casts 108 /lpf Urine Granular Casts 7 /lpf Microscopic Urinalysis Comment CULT NOT INDICATED Last Impressions Chest X-Ray 08/04/17 1850 Signed Impressions: CONCLUSION: Stable exam with suspected bilateral parenchymal scarring especially in the lef t upper lobe without hilar retraction. Previous CABG. Head CT 08/04/17 0000 Signed Impressions: CONCLUSION: 1. No acute intracranial abnormalities. Patient creatinine is 3.42. This is almost double her baseline. I discussed patient with [facility] hospitalist. Patient will be admitted for syncopal workup and acute renal failure. Diagnosis Primary Impression: Syncope Qualified Codes: R55 - Syncope and collapse Additional Impression: Acute renal failure Qualified Codes: N17.9 - Acute kidney failure, unspecified Admitting Information Admitting Physician Requests: Admit Condition: Stable MarcialJordyn dowd FLORIDALMA Aug 04, 2017 19:09
[2017-08-04 19:23] LABS: AUTOMATED NEUTROPHIL # 4.4 TH/MM3 (1.8-7.7); BASOPHIL # 0.1 TH/MM3 (0-0.2); BASOPHIL % 0.7 % (0.0-2.0); EOSINOPHIL # 0.1 TH/MM3 (0-0.4); EOSINOPHIL % 1.4 % (0.0-4.0); HEMATOCRIT 45.1 % (35.0-46.0); HEMOGLOBIN 15.3 GM/DL (11.6-15.3); LYMPH % 39.7 % (9.0-44.0); LYMPHOCYTE # 3.5 TH/MM3 (1.0-4.8); MEAN CELL VOLUME 89.2 FL (80.0-100.0); MEAN CORPUSCULAR HEMOGLOBIN 30.3 PG (27.0-34.0); MEAN PLATELET VOLUME 11.2 FL (7.0-11.0); MONO % 7.8 % (0.0-8.0); MONOCYTE # 0.7 TH/MM3 (0-0.9); NEUT % 50.4 % (16.0-70.0); PLATELET COUNT 262 TH/MM3 (150-450); RED BLOOD COUNT 5.06 MIL/MM3 (4.00-5.30); WHITE BLOOD COUNT 8.7 TH/MM3 (4.0-11.0)
--- NOTE | 2017-08-04 19:40 | RADRPT ---
EXAM DATE: 08/04/2017 7:20 PM EDT AGE/SEX: 51 years / Female INDICATIONS: Syncope. Palpitations. Patient fainted today. CLINICAL DATA: This is the patient's initial encounter. Patient reports that signs and symptoms have been present for 1 day and indicates a pain score of 0/10. MEDICAL/SURGICAL HISTORY: . Cardiovascular disease. Congestive heart failure. Hypertension. NINOSKA D,TB, Diabetes . CABG, Hysterectomy. COMPAR[place]: [facility] [place], 07/13/[place]. . FINDINGS: There is cardiomegaly. Previous sternotomy. Interstitial prominence in the lungs with chronic scarrin g left apex similar to June 2016. CONCLUSION: Stable exam with suspected bilateral parenchymal scarring especially in the left upper lobe without h ilar retraction. Previous CABG. Electronically signed by: Rajat Engel MD 08/04/2017 7:38 PM EDT
[2017-08-04 19:52] LABS: TROPONIN I LESS THAN 0.02 NG/ML (0.02-0.05)
[2017-08-04 19:55] LABS: PROTHROMBIN TIME - PATIENT 10.6 SEC (9.8-11.6)
--- NOTE | 2017-08-04 20:04 | RADRPT ---
EXAM DATE: 08/04/2017 7:39 PM EDT AGE/SEX: 51 years / Female INDICATIONS: Syncopal episode with fall. CLINICAL DATA: This is the patient's initial encounter. Patient reports that signs and symptoms have been present for 1 day and indicates a pain score of 1/10. MEDICAL/SURGICAL HISTORY: Diabetes mellitus type I. . RADIATION DOSE: 38.91 CTDI (mGy) COMPARISON: No prior exams available for comparison. TECHNIQUE: CT of the head without contrast. Using automated exposure control and adjustment of the mA and/or kV according to patient size, radiation dose was kept as low as reasonably achievable to ob tain optimal diagnostic quality images. FINDINGS: Cerebrum: No acute intracranial hemorrhage, mass effect or shift. No hydrocephalus. Posterior Fossa: The cerebellum and brainstem are intact. The 4th ventricle is midline. The cerebe llopontine angle is unremarkable. Extracranial: The visualized portion of the orbits is intact. Skull: The calvaria is intact. No evidence of skull fracture. CONCLUSION: 1. No acute intracranial abnormalities. Electronically signed by: Rajat Engel MD 08/04/2017 8:03 PM EDT
[2017-08-04 20:21] LABS: BICARBONATE 24.4 MEQ/L (21.0-32.0); BLOOD UREA NITROGEN 34 MG/DL (7-18); CHLORIDE 99 MEQ/L (98-107); CREATININE 3.42 MG/DL (0.50-1.00); GLOMERULAR FILTRATION RATE 17 ML/MIN (>89); GLUCOSE,RANDOM 263 MG/DL (74-106); SODIUM (NA) 137 MEQ/L (136-145)
[2017-08-04 21:06] LABS: BILIRUBIN, URINE NEG (NEG); BLOOD, URINE NEG (NEG); GLUCOSE,URINE >=500 mg/dL (NEG); HYALINE CAST, URINE 108 /lpf (RARE); KETONE, URINE NEG (NEG); NITRITE,URINE NEG (NEG); SQUAMOUS EPITHELIAL CELL URINE 3 /hpf (0-5); URINE COLOR Amber (YELLW/STRAW); URINE LEUKOCYTE ESTERASE NEG (NEG)
[2017-08-04] MEDS ORDERED: DEXTROSE 50% IN WATER 50 ML VIAL(D50) IV PUSH PRN (21:45)
[2017-08-04] MEDS ORDERED: ACETAMINOPHEN/HYDROcodone 325 MG/10 MG TAB PO PRN (21:45)
[2017-08-04] MEDS ORDERED: BISACODYL 10 MG SUPP RECTAL PRN (21:45)
[2017-08-04] MEDS ORDERED: SENNOSIDES 8.6 MG TAB PO PRN (21:45)
[2017-08-04] MEDS ORDERED: GLUCAGON 1 MG/ML VIAL OTHER PRN (21:45)
[2017-08-04] MEDS ORDERED: RESP: ALBUTEROL 2.5 MG/IPRATROPIUM 0.5 MG NEB (PRN) NEB (21:45)
[2017-08-04] MEDS ORDERED: LACTULOSE SYRUP 20 GM/30 ML CUP PO PRN (21:45)
[2017-08-04] MEDS ORDERED: METOCLOPRAMIDE HCL 10 MG/2 ML VIAL IV PUSH PRN (21:45)
[2017-08-04] MEDS ORDERED: ACETAMINOPHEN 325 MG TAB PO PRN (21:45)
[2017-08-04] MEDS ORDERED: MAGNESIUM HYDROXIDE SUSP 30 ML CUP PO PRN (21:45)
[2017-08-04] MEDS ORDERED: ACETAMINOPHEN/HYDROcodone 325 MG/5 MG TAB PO PRN (21:45)
[2017-08-04] MEDS ORDERED: SODIUM CHLORIDE 0.9% FLUSH 10 ML FLUSH IV FLUSH PRN (21:45)
--- NOTE | 2017-08-04 21:45 | HHI.HP ---
[facility] Service [facility] Primary Care Physician Grabiel Weiss D.O. Admission Diagnosis syncope; ARF Diagnoses: (1) Syncope Diagnosis: Principal (2) Hypotension Diagnosis: Principal (3) HOLLIE (acute kidney injury) Diagnosis: Principal (4) DM (diabetes mellitus) Diagnosis: Principal Travel History International Travel<30 Days: No Contact w/Intl Traveler <30 Da: No Traveled to Known Affected Are: No History of Present Illness This is a 51-year-old female with a PMH of HTN, Anxiety, Hyperlipidemia, CHF ( Echo 02/16/2016 w/ EF 50%), COPD and DM who was brought to the ER after syncope x2 today. States she had gotten up to go answer the door when she felt lightheaded and had sudden syncopal event, states she "blacked out" twice. No previous h/o similar symptoms. Denies chest pain or SOB prior to event. On arrival, BP 92/52, HR 80, O2 sat 98% on RA, Afebrile. CBC unremarkable. Creatinine 3.42, previously 1.17 on 06/08/2017. Troponin negative. INR 1.0. UA negative for UTI. CXR was stable exam. CT Head with no acute findings. Review of Systems Except as stated in HPI: all other systems reviewed are Neg ROS: 14 point review of systems otherwise negative. Past Family Social History Past Medical History PMH: HTN, Anxiety, Hyperlipidemia, CHF (Echo 02/16/2016 w/ EF 50%), COPD and DM Past Surgical History PAST SURGICAL HISTORY: CABG, Bladder Clamp, Hysterectomy, Tubal Ligation, Right Hand Surgery Allergies: Coded Allergies: benazepril (Verified Allergy, Severe, Swelling, 08/04/17) ANGIOEDEMA TO ENALIPRIIL captopril (Verified Allergy, Severe, Swelling, 08/04/17) ANGIOEDEMA TO ENALIPRIIL enalaprilat (Verified Allergy, Severe, Swelling, 08/04/17) ANGIOEDEMA TO ENALIPRIIL fosinopril (Verified Allergy, Severe, Swelling, 08/04/17) ANGIOEDEMA TO ENALIPRIIL lisinopril (Verified Allergy, Severe, Swelling, 08/04/17) ANGIOEDEMA TO ENALIPRIIL quinapril (Verified Allergy, Severe, Swelling, 08/04/17) ANGIOEDEMA TO ENALIPRIIL *MDRO Multi-Drug Resistant Organism (Verified Allergy, Unknown, 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 No h/o DM or CAD Social History PAST SOCIAL HISTORY: Occasional alcohol. Smokes few cigarettes daily. Negative for drugs. Physical Exam Vital Signs Vital Signs Date Time Temp Pulse Resp B/P (MAP) Pulse Ox O2 Delivery O2 Flow Rate FiO2 08/04/17 19:05 96/54 (68) 08/04/17 19:05 101/57 (72) 08/04/17 19:04 98 Room Air 08/04/17 17:18 97.1 83 18 110/53 (72) 94 Physical Exam PE: GENERAL: Pleasant middle-aged white female in no acute distress. Asking to eat/ drink. HEENT: PERRLA, EOMI. No scleral icterus or conjunctival pallor. No lid lag or facial droop. CARDIOVASCULAR: Regular rate and rhythm. No obvious murmurs to auscultation. No chest tenderness to palpation. RESPIRATORY: No obvious rhonchi or wheezing. Clear to auscultation. Breath sounds equal bilaterally. GASTROINTESTINAL: Abdomen soft, non-tender, nondistended. BS normal. MUSCULOSKELETAL: Extremities without clubbing, cyanosis, or edema. No obvious deformities. NEUROLOGICAL: Awake, alert and oriented x4. No focal neurologic deficits. Moving both upper and lower extremities spontaneously. Laboratory Laboratory Tests Test 08/04/17 19:02 08/04/17 20:10 White Blood Count 8.7 Red Blood Count 5.06 Hemoglobin 15.3 Hematocrit 45.1 Mean Corpuscular Volume 89.2 Mean Corpuscular Hemoglobin 30.3 Mean Corpuscular Hemoglobin Concent 34.0 Red Cell Distribution Width 14.0 Platelet Count 262 Mean Platelet Volume 11.2 Neutrophils (%) (Auto) 50.4 Lymphocytes (%) (Auto) 39.7 Monocytes (%) (Auto) 7.8 Eosinophils (%) (Auto) 1.4 Basophils (%) (Auto) 0.7 Neutrophils # (Auto) 4.4 Lymphocytes # (Auto) 3.5 Monocytes # (Auto) 0.7 Eosinophils # (Auto) 0.1 Basophils # (Auto) 0.1 CBC Comment DIFF FINAL Differential Comment Prothrombin Time 10.6 Prothromb Time International Ratio 1.0 Activated Partial Thromboplast Time 23.6 Blood Urea Nitrogen 34 Creatinine 3.42 Random Glucose 263 Calcium Level 9.0 Sodium Level 137 Potassium Level 3.7 Chloride Level 99 Carbon Dioxide Level 24.4 Anion Gap 14 Estimat Glomerular Filtration Rate 17 Total Creatine Kinase 116 Creatine Kinase MB 0.7 Troponin I LESS THAN 0.02 Urine Color Lissette Urine Turbidity CLOUDY Urine pH 5.0 Urine Specific [place] 1.020 Urine Protein 100 Urine Glucose (UA) >=500 Urine Ketones NEG Urine Occult Blood NEG Urine Nitrite NEG Urine Bilirubin NEG Urine Urobilinogen 4.0 OR GREATER Urine Leukocyte Esterase NEG Urine WBC 1 Urine Squamous Epithelial Cells 3 Urine Hyaline Casts 108 Urine Granular Casts 7 Microscopic Urinalysis Comment CULT NOT INDICATED Result Diagram: 08/04/17190108/04/171901 Caprini VTE Risk Assessment Caprini VTE Risk Assessment: No/Low Risk (score <= 1) Caprini Risk Assessment Model Point Value = 1 Point Value = 2 Point Value = 3 Point Value = 5 Age 41-60 Minor surgery BMI > 25 kg/m2 Swollen legs Varicose veins or History of unexplained or recurrent spontaneous Oral contraceptives or hormone replacement Sepsis (< 1 month) Serious lung disease, including pneumonia (< 1 month) Abnormal pulmonary function Acute myocardial infarction Congestive heart failure (< 1 month) History of inflammatory bowel disease Medical patient at bed rest Age 61-74 Arthroscopic surgery Major open surgery (> 45 min) Laparoscopic surgery (> 45 min) Malignancy Confined to bed (> 72 hours) Immobilizing plaster cast Central venous access Age >= 75 History of VTE Family history of VTE Factor V Leiden Prothrombin [id number] Lupus anticoagulant Anticardiolipin antibodies Elevated serum homocysteine Heparin-induced thrombocytopenia Other congenital or acquired thrombophilia Stroke (< 1 month) Elective arthroplasty Hip, pelvis, or leg fracture Acute spinal cord injury (< 1 month) Prophylaxis Regimen Total Risk Factor Score Risk Level Prophylaxis Regimen 0-1 Low Early ambulation 2 Moderate Order ONE of the following: *Sequential Compression Device (SCD) *Heparin 5000 units SQ BID 3-4 Higher Order ONE of the following medications: *Heparin 5000 units SQ TID *Enoxaparin/Lovenox 40 mg SQ daily (WT < 150 kg, CrCl > 30 mL/min) *Enoxaparin/Lovenox 30 mg SQ daily (WT < 150 kg, CrCl > 10-29 mL/min) *Enoxaparin/Lovenox 30 mg SQ BID (WT < 150 kg, CrCl > 30 mL/min) AND/OR *Sequential Compression Device (SCD) 5 or more Highest Order ONE of the following medications: *Heparin 5000 units SQ TID (Preferred with Epidurals) *Enoxaparin/Lovenox 40 mg SQ daily (WT < 150 kg, CrCl > 30 mL/min) *Enoxaparin/Lovenox 30 mg SQ daily (WT < 150 kg, CrCl > 10-29 mL/min) *Enoxaparin/Lovenox 30 mg SQ BID (WT < 150 kg, CrCl > 30 mL/min) AND *Sequential Compression Device (SCD) Assessment and Plan Problem List: (1) Syncope ICD Code: R55 - Syncope and collapse (2) Hypotension ICD Code: I95.9 - Hypotension, unspecified (3) HOLLIE (acute kidney injury) ICD Code: N17.9 - Acute kidney failure, unspecified (4) DM (diabetes mellitus) ICD Code: E11.9 - Type 2 diabetes mellitus without complications Status: Chronic Assessment and Plan A/P: 1. Syncope: acute syncopal event x2 today, likely vasovagal from dehydration/ hypotension. CT Head w/ no acute findings, images reviewed by me. Admit for further work up. Telemetry, initial trop negative, check serial cardiac enzymes to r/o acute ischemia. Check Echo to eval for valvular abnormality/ cardiomyopathy/outlet obstruction. IVF for hydration. PT for eval/tx. 2. Hypotension: on multiple antihypertensives per review of medication list, BP 90's systolic, will hold medications, monitor BP, resume medications once stabilized. 3. HOLLIE: Creatinine 3.42, previously 1.17 on 06/08/2017. UA negative for UTI. IVF for hydration, monitor I/O, repeat labs in am. 4. DM: Sliding scale w/ Accu-Cheks. Hold Metformin in light of HOLLIE. 5. DVT Prophylaxis: SCD/Teds 6. Social work for d/c planning as needed. 7. Case discussed w/ ER physician at length, labs/records/imaging reviewed by me. Physician Certification 2 Midnight Certification Type: Admission for Inpatient Services Order for Inpatient Services The services are ordered in accordance with Medicare regulations or non- Medicare payer requirements, as applicable. In the case of services not specified as inpatient-only, they are appropriately provided as inpatient services in accordance with the 2-midnight benchmark. Estimated LOS (days): 2 days is the estimated time the patient will need to remain in the hospital, assuming treatment plan goals are met and no additional complications. Post-Hospital Plan: Not yet determined Valarie Cyr MD Aug 04, 2017 21:45
[2017-08-04] MEDS: SODIUM CHLOR 0.9% 1000 ML INJ 1,000 ML IV SCH (22:00)
[2017-08-04] MEDS ORDERED: METOPROLOL TARTRATE 25 MG TAB PO PRN (23:15)
[2017-08-04] MEDS ORDERED: SODIUM CHLORID 0.9% 500 ML IV PRN (23:15)
[2017-08-04] MEDS ORDERED: POVIDONE IODINE 5% (ANTISEPSIS KIT) 4 APPLICATIONS EACH NARE PRN (23:15)
[2017-08-04] MEDS ORDERED: CHLORHEXIDINE GLUCONATE 2 % 1 PACK (2 CLOTHS) TOPICAL PRN (23:15)
[2017-08-04] MEDS ORDERED: LACTATED RINGER'S 1000 ML IV PRN (23:15)
[2017-08-04] MEDS ORDERED: FURO20TA PO (23:38)
[2017-08-05] VITALS (7 sets, daily range): BP systolic 110–155; BP diastolic 53–71; PULSE 75–87; RESP 17–18; TEMP 97.9–98.4; O2SAT 97–99
[2017-08-05 02:35] LABS: ALKALINE PHOSPHATASE 65 U/L (45-117); ALT (GPT) 14 U/L (10-53); AST (GOT) 12 U/L (15-37); BICARBONATE 24.6 MEQ/L (21.0-32.0); BLOOD UREA NITROGEN 36 MG/DL (7-18); CHLORIDE 104 MEQ/L (98-107); CREATININE 2.97 MG/DL (0.50-1.00); GLOMERULAR FILTRATION RATE 20 ML/MIN (>89); GLUCOSE,RANDOM 213 MG/DL (74-106); SODIUM (NA) 141 MEQ/L (136-145); TOTAL BILIRUBIN ADULT 0.3 MG/DL (0.2-1.0); TOTAL PROTEIN 6.8 GM/DL (6.4-8.2); TROPONIN I LESS THAN 0.02 NG/ML (0.02-0.05)
[2017-08-05] MEDS: SODIUM CHLOR 0.9% 1000 ML INJ 1,000 ML IV SCH ×2 (08:00→17:32)
[2017-08-05 08:12] LABS: AUTOMATED NEUTROPHIL # 2.5 TH/MM3 (1.8-7.7); BASOPHIL % 0.5 % (0.0-2.0); EOSINOPHIL # 0.1 TH/MM3 (0-0.4); HEMATOCRIT 37.8 % (35.0-46.0); HEMOGLOBIN 12.9 GM/DL (11.6-15.3); MEAN CELL VOLUME 89.6 FL (80.0-100.0); MEAN CORPUSCULAR HEMOGLOBIN 30.5 PG (27.0-34.0); MEAN CORPUSCULAR HGB CONC 34.1 % (32.0-36.0); MONO % 8.4 % (0.0-8.0); MONOCYTE # 0.5 TH/MM3 (0-0.9); NEUT % 40.1 % (16.0-70.0); PLATELET COUNT 169 TH/MM3 (150-450); RED BLOOD COUNT 4.22 MIL/MM3 (4.00-5.30); RED CELL DISTRIBUTION WIDTH 14.1 % (11.6-17.2); WHITE BLOOD COUNT 6.2 TH/MM3 (4.0-11.0)
[2017-08-05] MEDS: TIOTROPIUM BROMIDE 18 MCG INH INH SCH (09:00)
[2017-08-05] MEDS: SODIUM CHLORIDE 0.9% FLUSH 10 ML FLUSH IV FLUSH SCH ×2 (09:00→21:37)
[2017-08-05] MEDS: ASPIRIN EC 81 MG TABEC PO SCH (09:08)
[2017-08-05] MEDS: DOCUSATE SODIUM 50 MG/SENNA 8.6 MG TAB PO SCH ×2 (09:08→21:37)
[2017-08-05] MEDS: INSULIN ASPART SUPPLEMENTAL SCALE SQ SCH ×4 (09:09→21:00)
--- NOTE | 2017-08-05 09:44 | HHI.PR ---
Subjective Remarks Pt states that he feels better. Denies any CP/SOB/n/v. Pt states that she is on "a lot of medication"/ She also admits that she has lost weight (from 183lbs to 173lbs) unintentionally but hasn't discussed this w her PCP. Pt states that she is uptodate w mammograms and colonoscopies. denies any lightheadedness or dizziness. Objective Vitals Vital Signs Date Time Temp Pulse Resp B/P (MAP) Pulse Ox O2 Delivery O2 Flow Rate FiO2 08/05/17 08:00 98.0 84 18 112/58 (76) 97 08/05/17 03:30 98.4 77 18 110/53 (72) 97 08/04/17 23:30 97.6 88 18 104/58 (73) 97 08/04/17 22:25 78 18 92/50 (64) 96 08/04/17 22:22 Room Air 08/04/17 21:00 78 17 92/56 (68) 97 Room Air 08/04/17 20:00 83 18 98/55 (69) 96 Room Air 08/04/17 19:05 96/54 (68) 08/04/17 19:05 101/57 (72) 08/04/17 19:04 98 Room Air 08/04/17 19:00 80 20 92/52 (65) 98 Room Air 08/04/17 17:18 97.1 83 18 110/53 (72) 94 I/O 08/04/17 08/04/17 08/04/17 08/05/17 08/05/17 08/05/17 07:00 15:00 23:00 07:00 15:00 23:00 Intake Total 1000 ml 1058 ml Balance 1000 ml 1058 ml Intake Oral 420 ml IV Total 1000 ml 638 ml # Voids 2 Result Diagram: 08/05/17 0614 08/05/17 0052 Imaging Last Impressions Chest X-Ray 08/04/17 1850 Signed Impressions: CONCLUSION: Stable exam with suspected bilateral parenchymal scarring especially in the lef t upper lobe without hilar retraction. Previous CABG. Head CT 08/04/17 0000 Signed Impressions: CONCLUSION: 1. No acute intracranial abnormalities. Objective Remarks GENERAL: AA female, laying on her right side, appears comfortable CARDIOVASCULAR: Regular rate and rhythm. No obvious murmurs to auscultation. RESPIRATORY: No obvious wheezing. Clear to auscultation. Breath sounds equal bilaterally. GASTROINTESTINAL: Abdomen soft, non-tender, nondistended. MUSCULOSKELETAL: Extremities without edema. No obvious deformities. NEUROLOGICAL: Awake, alert. Moving both upper and lower extremities spontaneously. A/P Problem List: (1) Syncope ICD Code: R55 - Syncope and collapse (2) Hypotension ICD Code: I95.9 - Hypotension, unspecified (3) HOLLIE (acute kidney injury) ICD Code: N17.9 - Acute kidney failure, unspecified (4) DM (diabetes mellitus) ICD Code: E11.9 - Type 2 diabetes mellitus without complications Status: Chronic Assessment and Plan 1. Syncope: acute syncopal event x2 today, likely vasovagal from dehydration/ hypotension/polypharmacy. CT Head w/ no acute findings. Telemetry, serial trop neg x3. Echo was ordered and pending to eval for valvular abnormality/ cardiomyopathy/outlet obstruction. will order carotid u/s as well. continue IVF for hydration. PT for eval/tx. 2. Hypotension: on multiple antihypertensives per review of medication list, BP 90's systolic,continue to hold BP meds and slowly re-introduce them. Per pt she has been loosing weight (183lbs now down to 173lbs un-intentionally). Pt claims she is up to date w all her preventive care. I strongly recommended that she f/u w her PCP and inform him of her weight loss. Weight loss can definitely affect BPs and pt may not require all the BP meds she currently is on. I did request that RN confirm all her meds w her pharmacy and update her med rec. continue to monitor BP, resume medications slowly once stabilized. 3. HOLLIE: Creatinine 3.42 --> 2.97, previously 1.17 on 06/08/2017. UA negative for UTI. IVF for hydration, monitor I/O, repeat labs in am. 4. DM: Sliding scale w/ Accu-Cheks. Hold Metformin in light of HOLLIE. 5. DVT Prophylaxis: SCD/Teds Discharge Planning f/u ECHO, carotid u/s. Slowly introduce pt's BP meds. Pt must f/u w PCP for weight loss workup. Rochelle Cantu MD Aug 05, 2017 09:44
[2017-08-05] MEDS: PRASUGREL 10 MG TAB PO SCH (10:06)
--- NOTE | 2017-08-05 11:57 | RADRPT ---
EXAM DATE: 08/05/2017 11:15 AM EDT AGE/SEX: 51 years / Female INDICATIONS: Syncope. CLINICAL DATA: This is the patient's initial encounter. Patient reports that signs and symptoms have been present for 1 day and indicates a pain score of 0/10. MEDICAL/SURGICAL HISTORY: . Anxiety. Diabetes. Coronary artery disease. Congestive heart najma lure. Neuropathy. Coronary artery bypass graft. Hypercholesterolemia. Hyperlipidemia. Hypertensi on. COPD. Asthma. . Hysterectomy. Tubal ligation. COMPARISON: [facility] [place], CAROTID ARTERIES, 07/27/2011. . No external comparison. VELOCITY PARAMETERS: ICA/CCA Ratio: Right 1.3 , Left 1.9 ICA: Right 119 cm/sec, Left 153 cm/sec CCA: Right 91 cm/sec, Left 79 cm/sec ECA: Right 91 cm/sec, Left 87 cm/sec Vertebral: Right 45 cm/sec antegrade, Left 60 cm/sec antegrade FINDINGS: Right Carotid: There is mild calcified and noncalcified plaque with intimal thickening throughout th e common carotid artery. There is moderate noncalcified plaque in the distal common carotid artery. M oderate plaque is also present in the carotid bulb. Left Carotid: There is moderate noncalcified plaque throughout the common carotid artery, most sever e distally. Moderate calcified and noncalcified plaque is present in the carotid bulb and proximal in ternal carotid artery. Other: None. CONCLUSION: 1. Right Internal Carotid Artery: Findings indicate <50% stenosis. 2. Left Internal Carotid Artery: Findings indicate 50-69% stenosis. Electronically signed by: Parker Hinkle MD 08/05/2017 11:56 AM EDT
--- NOTE | 2017-08-05 12:47 | EKG ---
Date Performed: 08/04/2017 Time Performed: 19:23:32 PTAGE: 51 years EKG: Sinus rhythm NONSPECIFIC T-WAVE ABNORMALITY BORDERLINE ECG PREVIOUS TRACING : 06/08/2017 11.34 Since the previous tracing, no significant change noted DOCTOR: Saleem Lundy Interpretating Date/Time 08/05/2017 12:47:05
[2017-08-05] MEDS: ATORVASTATIN 80 MG TAB PO SCH (21:37)
[2017-08-06] VITALS (8 sets, daily range): BP systolic 132–172; BP diastolic 62–92; PULSE 68–78; RESP 16–18; TEMP 97.9–98.3; O2SAT 96–100
[2017-08-06] MEDS: SODIUM CHLOR 0.9% 1000 ML INJ 1,000 ML IV SCH ×2 (03:26→14:00)
[2017-08-06 06:04] LABS: AUTOMATED NEUTROPHIL # 2.2 TH/MM3 (1.8-7.7); BASOPHIL % 0.6 % (0.0-2.0); EOSINOPHIL # 0.1 TH/MM3 (0-0.4); EOSINOPHIL % 1.9 % (0.0-4.0); HEMATOCRIT 36.4 % (35.0-46.0); HEMOGLOBIN 12.5 GM/DL (11.6-15.3); LYMPH % 48.8 % (9.0-44.0); LYMPHOCYTE # 2.6 TH/MM3 (1.0-4.8); MEAN CELL VOLUME 88.8 FL (80.0-100.0); MEAN CORPUSCULAR HEMOGLOBIN 30.4 PG (27.0-34.0); MEAN CORPUSCULAR HGB CONC 34.3 % (32.0-36.0); MEAN PLATELET VOLUME 10.7 FL (7.0-11.0); MONO % 7.3 % (0.0-8.0); MONOCYTE # 0.4 TH/MM3 (0-0.9); NEUT % 41.4 % (16.0-70.0); PLATELET COUNT 147 TH/MM3 (150-450); RED CELL DISTRIBUTION WIDTH 14.1 % (11.6-17.2); WHITE BLOOD COUNT 5.3 TH/MM3 (4.0-11.0)
[2017-08-06 06:33] LABS: BICARBONATE 27.9 MEQ/L (21.0-32.0); CALCIUM 8.4 MG/DL (8.5-10.1); CREATININE 1.29 MG/DL (0.50-1.00); MAGNESIUM 1.8 MG/DL (1.5-2.5)
[2017-08-06] MEDS: INSULIN ASPART SUPPLEMENTAL SCALE SQ SCH ×4 (08:00→21:00)
[2017-08-06] MEDS: TIOTROPIUM BROMIDE 18 MCG INH INH SCH (09:26)
[2017-08-06] MEDS: ASPIRIN EC 81 MG TABEC PO SCH (09:26)
[2017-08-06] MEDS: PRASUGREL 10 MG TAB PO SCH (09:26)
[2017-08-06] MEDS: DOCUSATE SODIUM 50 MG/SENNA 8.6 MG TAB PO SCH ×2 (09:31→21:00)
[2017-08-06] MEDS: SODIUM CHLORIDE 0.9% FLUSH 10 ML FLUSH IV FLUSH SCH ×2 (09:31→21:11)
--- NOTE | 2017-08-06 14:45 | HHI.PR ---
Subjective Remarks Pt states she feels better. no episode of lightheadedness or dizziness. no CP/ SOB/n/v Objective Vitals Vital Signs Date Time Temp Pulse Resp B/P (MAP) Pulse Ox O2 Delivery O2 Flow Rate FiO2 08/06/17 12:14 98.3 73 18 168/92 (117) 99 08/06/17 08:00 98.1 75 16 158/72 (100) 100 08/06/17 04:00 97.9 73 17 160/73 (102) 96 08/06/17 01:23 78 08/06/17 00:01 98.2 75 17 132/62 (85) 98 08/05/17 23:53 75 08/05/17 22:06 Room Air 08/05/17 20:00 98.4 80 18 155/71 (99) 99 08/05/17 19:54 78 08/05/17 16:02 98.4 87 17 139/59 (85) 97 I/O 08/05/17 08/05/17 08/05/17 08/06/17 08/06/17 08/06/17 06:59 14:59 22:59 06:59 14:59 22:59 Intake Total 1058 ml 1200 ml Balance 1058 ml 1200 ml Intake Oral 420 ml 1200 ml IV Total 638 ml # Voids 2 5 5 # Bowel Movements 0 1 Result Diagram: 08/06/17 0500 08/06/17 0500 Imaging Last Impressions Carotid Artery Ultrasound 08/05/17 0000 Signed Impressions: CONCLUSION: 1. Right Internal Carotid Artery: Findings indicate <50% stenosis. 2. Left Internal Carotid Artery: Findings indicate 50-69% stenosis. Chest X-Ray 08/04/17 1850 Signed Impressions: CONCLUSION: Stable exam with suspected bilateral parenchymal scarring especially in the lef t upper lobe without hilar retraction. Previous CABG. Head CT 08/04/17 0000 Signed Impressions: CONCLUSION: 1. No acute intracranial abnormalities. Objective Remarks GENERAL: AA female, laying on her right side, family at bedside CARDIOVASCULAR: Regular rate and rhythm. No obvious murmurs to auscultation. RESPIRATORY: No obvious wheezing. Clear to auscultation. Breath sounds equal bilaterally. GASTROINTESTINAL: Abdomen soft, non-tender, nondistended. MUSCULOSKELETAL: Extremities without edema. No obvious deformities. NEUROLOGICAL: Awake, alert. Moving both upper and lower extremities spontaneously. A/P Problem List: (1) Syncope ICD Code: R55 - Syncope and collapse (2) Hypotension ICD Code: I95.9 - Hypotension, unspecified (3) HOLLIE (acute kidney injury) ICD Code: N17.9 - Acute kidney failure, unspecified (4) DM (diabetes mellitus) ICD Code: E11.9 - Type 2 diabetes mellitus without complications Status: Chronic Assessment and Plan 1. Syncope: acute syncopal event x2 today, likely vasovagal from dehydration/ hypotension/polypharmacy. CT Head w/ no acute findings. Telemetry, serial trop neg x3. Echo was ordered and pending to eval for valvular abnormality/ cardiomyopathy/outlet obstruction. carotid u/s shows L int carotid art stenosis of 50-69%. Vasc sx consulted for further eval. decreased IVFs to NS @60ml/hr. PT for eval/tx. 2. Hypotension: on multiple antihypertensives per review of medication list, BP 90's systolic,continue to hold BP meds and slowly re-introduce them. I have restarted her amlodipine and isosorbide. Per pt she has been loosing weight ( 183lbs now down to 173lbs un-intentionally). Pt claims she is up to date w all her preventive care. I strongly recommended that she f/u w her PCP and inform him of her weight loss. Weight loss can definitely affect BPs and pt may not require all the BP meds she currently is on. We attempted to call pt's pharmacy over the week-end but they were closed. I did have a long discussed w pt and family and explained the importance of knowing what meds to be on and avoid polypharmacy. Family will be going w her at next Dr sen. I also went over the carotid u/s results. Recommend low sodium diet as well. 3. HOLLIE: Creatinine 3.42 --> 2.97-->1.29, previously 1.17 on 06/08/2017. UA negative for UTI. IVF for hydration, monitor I/O, repeat labs in am. 4. DM: Sliding scale w/ Accu-Cheks. Hold Metformin in light of HOLLIE. 5. DVT Prophylaxis: SCD/Teds Of note: I was told that pt had a 5 beat run of Vtach overnight and was asymptomatic. monitor closely. Discharge Planning f/u ECHO, vasc sx consult. Slowly introduce pt's BP meds. Pt must f/u w PCP for weight loss workup. Rochelle Cantu MD Aug 06, 2017 14:45
[2017-08-06] MEDS ORDERED: hydrALAZINE HCL 10 MG TAB PO PRN (15:00)
[2017-08-06] MEDS: METOPROLOL TARTRATE 25 MG TAB PO SCH (15:24)
[2017-08-06] MEDS: ATORVASTATIN 80 MG TAB PO SCH (21:10)
[2017-08-07] VITALS (9 sets, daily range): BP systolic 124–169; BP diastolic 59–90; PULSE 66–77; RESP 18–25; TEMP 97.9–98.4; O2SAT 96–98
[2017-08-07] MEDS: METOPROLOL TARTRATE 25 MG TAB PO SCH ×2 (01:06→11:58)
[2017-08-07] MEDS: SODIUM CHLOR 0.9% 1000 ML INJ 1,000 ML IV SCH (01:08)
[2017-08-07] MEDS: INSULIN ASPART SUPPLEMENTAL SCALE SQ SCH ×4 (07:23→21:00)
[2017-08-07 08:02] LABS: BICARBONATE 25.4 MEQ/L (21.0-32.0); CALCIUM 9.5 MG/DL (8.5-10.1); CREATININE 0.95 MG/DL (0.50-1.00); MAGNESIUM 1.9 MG/DL (1.5-2.5)
[2017-08-07] MEDS: DOCUSATE SODIUM 50 MG/SENNA 8.6 MG TAB PO SCH ×2 (09:00→21:00)
[2017-08-07] MEDS: PRASUGREL 10 MG TAB PO SCH (09:16)
[2017-08-07] MEDS: TIOTROPIUM BROMIDE 18 MCG INH INH SCH (09:16)
[2017-08-07] MEDS: SODIUM CHLORIDE 0.9% FLUSH 10 ML FLUSH IV FLUSH SCH ×2 (09:16→21:19)
[2017-08-07] MEDS: hydrALAZINE HCL 25 MG TAB PO SCH ×3 (09:17→17:23)
[2017-08-07] MEDS: ASPIRIN EC 81 MG TABEC PO SCH (09:17)
--- NOTE | 2017-08-07 09:26 | HHI.PR ---
Subjective Remarks Pt feeling well. denies any CP/SOB/n/lightheadedness or dizziness Objective Vitals Vital Signs Date Time Temp Pulse Resp B/P (MAP) Pulse Ox O2 Delivery O2 Flow Rate FiO2 08/07/17 08:00 98.4 69 25 145/71 (95) 96 08/07/17 07:27 Room Air 08/07/17 06:04 69 08/07/17 04:00 98.1 66 18 155/68 (97) 98 08/07/17 00:44 72 08/07/17 00:01 97.9 75 18 169/90 (116) 97 08/06/17 21:24 Nasal Cannula 2.00 08/06/17 20:00 98.2 76 18 172/86 (114) 99 08/06/17 19:50 73 08/06/17 16:00 98.3 68 17 168/77 (107) 99 08/06/17 12:14 98.3 73 18 168/92 (117) 99 I/O 08/06/17 08/06/17 08/06/17 08/07/17 08/07/17 08/07/17 07:00 15:00 23:00 07:00 15:00 23:00 Intake Total 960 ml Balance 960 ml Intake Oral 960 ml # Voids 5 3 5 # Bowel Movements 1 0 2 Result Diagram: 08/06/17 0500 08/07/17 0452 Imaging Last Impressions Carotid Artery Ultrasound 08/05/17 0000 Signed Impressions: CONCLUSION: 1. Right Internal Carotid Artery: Findings indicate <50% stenosis. 2. Left Internal Carotid Artery: Findings indicate 50-69% stenosis. Chest X-Ray 08/04/17 1850 Signed Impressions: CONCLUSION: Stable exam with suspected bilateral parenchymal scarring especially in the lef t upper lobe without hilar retraction. Previous CABG. Head CT 08/04/17 0000 Signed Impressions: CONCLUSION: 1. No acute intracranial abnormalities. Objective Remarks GENERAL: laying in bed CARDIOVASCULAR: Regular rate and rhythm. No obvious murmurs to auscultation. RESPIRATORY: No obvious wheezing. Clear to auscultation. Breath sounds equal bilaterally. GASTROINTESTINAL: Abdomen soft, non-tender, nondistended. MUSCULOSKELETAL: Extremities without edema. No obvious deformities. A/P Problem List: (1) Syncope ICD Code: R55 - Syncope and collapse (2) Hypotension ICD Code: I95.9 - Hypotension, unspecified (3) HOLLIE (acute kidney injury) ICD Code: N17.9 - Acute kidney failure, unspecified (4) DM (diabetes mellitus) ICD Code: E11.9 - Type 2 diabetes mellitus without complications Status: Chronic Assessment and Plan 1. Syncope: acute syncopal event x2 today, likely vasovagal from dehydration/ hypotension/polypharmacy. CT Head w/ no acute findings. Telemetry, serial trop neg x3. Echo was ordered and pending to eval for valvular abnormality/ cardiomyopathy/outlet obstruction. carotid u/s shows L int carotid art stenosis of 50-69%. Vasc sx consulted for further eval. HLIV. PT for eval/tx. 2. Hypotension: on multiple antihypertensives per review of medication list, BP 90's systolic,continue to hold BP meds and slowly re-introduce them. I have restarted her amlodipine, isosorbide and now her hydralazine. Monitor BP's closely. Per pt she has been loosing weight (183lbs now down to 173lbs un- intentionally). Pt claims she is up to date w all her preventive care. I strongly recommended that she f/u w her PCP and inform him of her weight loss. Weight loss can definitely affect BPs and pt may not require all the BP meds she currently is on. We attempted to call pt's pharmacy over the week-end but they were closed. I did have a long discussed w pt and family and explained the importance of knowing what meds to be on and avoid polypharmacy. Family member will be going w her at next Dr sen. I also went over the carotid u/s results. Recommended low sodium diet as well. 3. HOLLIE: Creatinine 3.42 --> 2.97-->1.29-->0.95, previously 1.17 on 06/08/2017. UA negative for UTI. s/p IVF for hydration, monitor I/O 4. DM: Sliding scale w/ Accu-Cheks. Hold Metformin in light of HOLLIE. 5. DVT Prophylaxis: SCD/Teds Discharge Planning f/u ECHO, vasc sx consult. Slowly introduce pt's BP meds. Pt must f/u w PCP for weight loss workup. Rochelle Cantu MD Aug 07, 2017 09:26
[2017-08-07] MEDS ORDERED: VALS1TAB65 PO (10:21)
[2017-08-07] MEDS ORDERED: FURO20TA PO (10:22)
[2017-08-07] MEDS ORDERED: RANE1000 PO (10:23)
--- NOTE | 2017-08-07 13:45 | ECHRPT ---
Indication: HEART FAILURE CONCLUSIONS The left ventricular systolic function is normal with an estimated ejection fraction in the range of 55-60%. Mild concentric left ventricular hypertrophy. Doppler parameters are consistent with impaired left ventricular relaxtion (grade 1 diastolic dysfun ction). Mild mitral valve regurgitation. There is mild tricuspid valve regurgitation. BP: / HR: Rhythm: MEASUREMENTS (Male / Female) Normal Values Technical Quality: 2D ECHO LV Diastolic Diameter PLAX 4.6 cm 4.2 - 5.9 / 3.9 - 5.3 cm LV Systolic Diameter PLAX 3.6 cm IVS Diastolic Thickness 1.5 cm 0.6 - 1.0 / 0.6 - 0.9 cm LVPW Diastolic Thickness 0.8 cm 0.6 - 1.0 / 0.6 - 0.9 cm LV Relative Wall Thickness 0.5 RV Internal Dim ED PLAX 2.4 cm LA Systolic Diameter LX 3.1 cm 3.0 - 4.0 / 2.7 - 3.8 cm M-MODE Aortic Root Diameter MM 2.8 cm AV Cusp Separation MM 1.7 cm DOPPLER MR Peak Velocity 387.0 cm/s MR Peak Gradient 59.9 mmHg Mitral E Point Velocity 88.2 cm/s Mitral A Point Velocity 108.0 cm/s Mitral E to A Ratio 0.8 TR Peak Velocity 251.0 cm/s TR Peak Gradient 25.2 mmHg Right Atrial Pressure 5.0 mmHg Pulmonary Artery Systolic Pressu 30.2 mmHg Right Ventricular Systolic Press 30.2 mmHg FINDINGS LEFT VENTRICLE Normal left ventricular size. Mild concentric left ventricular hypertrophy. The left ventricular systolic function is normal with an estimated ejection fraction in the range of 55-60%. No regional wall motion abnormalities are present. Doppler parameters are consistent with impaired left ventricular relaxtion (grade 1 diastolic dysfun ction). RIGHT VENTRICLE Normal right ventricular size and systolic function. LEFT ATRIUM The left atrial size is normal. RIGHT ATRIUM The right atrial size is normal. ATRIAL SEPTUM Normal atrial septal thickness without atrial level shunting by limited color doppler interrogation. AORTA The aortic root and proximal ascending aorta are normal in size on limited imaging. MITRAL VALVE Structurally normal mitral valve. Mild mitral valve regurgitation. No mitral valve stenosis. AORTIC VALVE Trileaflet aortic valve. No aortic valve stenosis or regurgitation. TRICUSPID VALVE Structurally normal tricuspid valve. No tricuspid valve stenosis. There is mild tricuspid valve regurgitation. The estimated pulmonary arterial pressure is 30 mmHg. PULMONARY VALVE No pulmonary valve regurgitation or stenosis. VESSELS The inferior vena cava is normal in size. PERICARDIUM No pericardial effusion. Andrew Jenkins DO (Electronically Signed) Final Date:07 August 2017 13:45
[2017-08-07] MEDS ORDERED: IOHEXOL 350 MG/ML 10 ML VIAL (for RAD DIAG) IVCONTRAST ONE (17:33)
--- NOTE | 2017-08-07 18:12 | RADRPT ---
EXAM DATE: 08/07/2017 5:31 PM EDT AGE/SEX: 51 years / Female INDICATIONS: TIA left internal carotid artery stenosis. CLINICAL DATA: This is the patient's initial encounter. Patient reports that signs and symptoms have been present for 1 day and indicates a pain score of 3/10. MEDICAL/SURGICAL HISTORY: Cardiovascular disease. Hypertension. Chronic obstructive pulmonary dis ease. Asthma, diabetes. Hysterectomy. Tubal ligation. RADIATION DOSE: 28.76 CTDI (mGy) COMPARISON: No prior exams available for comparison. TECHNIQUE: Volumetric scanning was performed using a multirow detector CT scanner during bolus infus ion of 71 ml Omnipaque 350 (iohexol) nonionic water-soluble contrast as a single exam dose. The da ta was postprocessed with a variety of visualization algorithms including full-volume maximum intensi ty projection, multiplanar sliding thin-slab reformation, curved-planar reformation, and surface-rend ering techniques. Using automated exposure control and adjustment of the mA and/or kV according to p atient size, radiation dose was kept as low as reasonably achievable to obtain optimal diagnostic gabriela lity images. DICOM format image data is available electronically for review and comparison. Elevated flow velocities and ICA/CCA ratios have been found to correlate with increased degrees of ve ssel stenosis, calculated as percentage of diameter relative to a normal segment of distal ICA/CCA. FINDINGS: The left common carotid artery arises from the base of the right brachiocephalic artery. This a anamaria l variant. The left subclavian artery origin is normal. There is mild atherosclerotic calcification a t the aortic arch and the origins of the great vessels without significant stenosis. There is mild plaque at the carotid bulb regions bilaterally. There is some calcification these regio ns. The stenosis is less than 50% being slightly worse on the left. Vertebral arteries are patent thr oughout the neck. CONCLUSION: Mild plaque at the carotid bulb regions without significant stenosis. Electronically signed by: Parker Darling MD 08/07/2017 6:11 PM EDT
--- NOTE | 2017-08-07 20:21 | PD.CAR.PN ---
CVT Progress Note Subjective/Hospital Course: 51-year-old female with dizziness and possibly syncopal episode. Carotid ultrasound reveals about 50% bilateral carotid stenosis which is confirmed by CTA. Based on clinical exam and diagnostic studies the carotid stenoses are mild and not hemodynamically significant and are not the cause of patient's problems Patient does not need any further intervention from my point and will need follow-up ultrasound of the carotids in about 2 years We will sign off Kerry Dixon Objective: Vital Signs Date Time Temp Pulse Resp B/P (MAP) Pulse Ox O2 Delivery O2 Flow Rate FiO2 08/07/17 16:00 98.0 69 21 124/59 (80) 97 08/07/17 12:00 98.1 73 24 144/74 (97) 98 08/07/17 08:00 98.4 69 25 145/71 (95) 96 08/07/17 07:27 Room Air 08/07/17 06:04 69 08/07/17 04:00 98.1 66 18 155/68 (97) 98 08/07/17 00:44 72 08/07/17 00:01 97.9 75 18 169/90 (116) 97 08/06/17 21:24 Nasal Cannula 2.00 Result Diagram: 08/06/17 0500 08/07/17 0452 Michael Salazar MD Aug 07, 2017 20:21
[2017-08-07] MEDS: ATORVASTATIN 80 MG TAB PO SCH (21:15)
[2017-08-08] VITALS: BP 149/79; PULSE 69; RESP 18; TEMP 98.3; O2SAT 95
[2017-08-08 00:43] VITALS: PULSE 64
[2017-08-08] MEDS: METOPROLOL TARTRATE 25 MG TAB PO SCH (01:14)
[2017-08-08 03:50] VITALS: BP 133/71; PULSE 62; RESP 18; TEMP 97; O2SAT 98
[2017-08-08 04:01] VITALS: PULSE 63
[2017-08-08 07:23] LABS: BICARBONATE 26.5 MEQ/L (21.0-32.0); CALCIUM 9.1 MG/DL (8.5-10.1); CREATININE 1.02 MG/DL (0.50-1.00)
[2017-08-08 08:00] VITALS: BP 146/91; PULSE 65; RESP 18; TEMP 98.1; O2SAT 98
[2017-08-08] MEDS: INSULIN ASPART SUPPLEMENTAL SCALE SQ SCH ×2 (08:20→12:00)
[2017-08-08] MEDS: DOCUSATE SODIUM 50 MG/SENNA 8.6 MG TAB PO SCH (08:40)
[2017-08-08] MEDS: hydrALAZINE HCL 25 MG TAB PO SCH (08:40)
[2017-08-08] MEDS: PRASUGREL 10 MG TAB PO SCH (08:41)
[2017-08-08] MEDS: ASPIRIN EC 81 MG TABEC PO SCH (08:41)
[2017-08-08] MEDS: SODIUM CHLORIDE 0.9% FLUSH 10 ML FLUSH IV FLUSH SCH (08:41)
[2017-08-08] MEDS: TIOTROPIUM BROMIDE 18 MCG INH INH SCH (08:42)
[2017-08-08] MEDS ORDERED: metFORMIN HCL 500 MG TAB PO SCH (09:00)
--- NOTE | 2017-08-08 11:59 | HHI.DCPOC ---
Discharge Care Plan Diagnosis: (1) Syncope (2) Hypotension (3) HOLLIE (acute kidney injury) (4) Diabetes mellitus Goals to Promote Your Health * To prevent worsening of your condition and complications * To maintain your health at the optimal level Directions to Meet Your Goals Take your medications as prescribed Follow your dietary instruction Follow activity as directed Keep your appointments as scheduled Take your immunizations and boosters as scheduled If your symptoms worsen call your PCP, if no PCP go to Urgent Care Center or Emergency Room Smoking is Dangerous to Your Health. Avoid second hand smoke Call the 24-hour hour crisis hotline for domestic abuse at Bijal Gabriel Aug 08, 2017 11:58
--- NOTE | 2017-08-08 12:04 | HHI.DS ---
Discharge Summary Admission Date Aug 04, 2017 at 21:38 Discharge Date: Aug 08, 2017 Admitting Diagnosis syncope; ARF (1) Syncope ICD Codes: R55 - Syncope and collapse (2) Hypotension ICD Codes: I95.9 - Hypotension, unspecified (3) HOLLIE (acute kidney injury) ICD Codes: N17.9 - Acute kidney failure, unspecified (4) DM (diabetes mellitus) ICD Codes: E11.9 - Type 2 diabetes mellitus without complications Status: Chronic Consultants Dr. Salazar, vascular surgery Procedures none CBC/BMP: 08/06/17 0500 08/08/17 0515 Significant Findings Laboratory Tests Test 08/06/17 05:00 08/07/17 04:52 08/08/17 05:15 Platelet Count 147 TH/MM3 (150-450) Lymphocytes (%) (Auto) 48.8 % (9.0-44.0) Blood Urea Nitrogen 20 MG/DL (7-18) 20 MG/DL (7-18) Creatinine 1.29 MG/DL (0.50-1.00) 1.02 MG/DL (0.50-1.00) Random Glucose 144 MG/DL (74-106) 134 MG/DL (74-106) 153 MG/DL (74-106) Calcium Level 8.4 MG/DL (8.5-10.1) Chloride Level 109 MEQ/L (98-107) Estimat Glomerular Filtration Rate 53 ML/MIN (>89) 75 ML/MIN (>89) 69 ML/MIN (>89) Imaging Last Impressions Neck CTA 08/07/17 0000 Signed Impressions: CONCLUSION: Mild plaque at the carotid bulb regions without significant stenosis. Carotid Artery Ultrasound 08/05/17 0000 Signed Impressions: CONCLUSION: 1. Right Internal Carotid Artery: Findings indicate <50% stenosis. 2. Left Internal Carotid Artery: Findings indicate 50-69% stenosis. Chest X-Ray 08/04/17 1850 Signed Impressions: CONCLUSION: Stable exam with suspected bilateral parenchymal scarring especially in the lef t upper lobe without hilar retraction. Previous CABG. Head CT 08/04/17 0000 Signed Impressions: CONCLUSION: 1. No acute intracranial abnormalities. PE at Discharge GENERAL: This is a well-nourished, well-developed patient, in no apparent distress. CARDIOVASCULAR: Regular rate and rhythm RESPIRATORY: Clear to auscultation. Breath sounds equal bilaterally. GASTROINTESTINAL: Abdomen soft, non-tender, nondistended. Normal active bowel sounds MUSCULOSKELETAL: Extremities without clubbing, cyanosis, or edema. NEURO: Alert & Oriented x4 to person, place, time, situation. Moves all ext x4 Hospital Course 1. Syncope: acute syncopal event x2 08/04/17, likely vasovagal from dehydration /hypotension/polypharmacy. CT Head w/ no acute findings. Telemetry, serial trop neg x3. Echo was ordered and pending to eval for valvular abnormality/ cardiomyopathy/outlet obstruction. carotid u/s shows L int carotid art stenosis of 50-69%. Vasc sx consulted for further eval, cleared for DC recommending follow up carotid stenosis as an outpatient. No surgical indication at this time. This was explained to the patient. PT for eval recommending home without PT 2. Hypotension: on multiple antihypertensives per review of medication list, BP 90's systolic,continue to hold BP meds and slowly re-introduce them. I have restarted her amlodipine, isosorbide and now her hydralazine. Monitor BP's closely. Per pt she has been loosing weight (183lbs now down to 173lbs un- intentionally). Pt claims she is up to date with all her preventive care, she follows with Dr. Weiss. Recommended that she f/u w her PCP and inform him of her weight loss. Weight loss can definitely affect BPs and pt may not require all the BP meds she currently is on. We attempted to call pt's pharmacy over the week-end but they were closed. I did have a long discussed w pt and family and explained the importance of knowing what meds to be on and avoid polypharmacy. Family member will be going w her at next Dr sen. I also went over the carotid u/s results. Recommended low sodium diet as well. 3. HOLLIE: Creatinine 3.42 --> 2.97-->1.29-->0.95 --> 1.02 previously 1.17 on . UA negative for UTI. s/p IVF for hydration, monitor I/O 4. DM: Sliding scale w/ Accu-Cheks. Initially Metformin was held in light of HOLLIE. After HOLLIE improved metformin was restarted. Patient instructed to keep blood glucose log take with you to Dr. Weiss's office at follow up appointment 5. DVT Prophylaxis: SCD/Teds Pt Condition on Discharge: Stable Discharge Disposition: Discharge Home Discharge Instructions DIET: Follow Instructions for: Heart Healthy Diet, Diabetic Diet Activities you can perform: Regular-No Restrictions Follow up Referrals: PCP Follow-up - 3-[address] Weiss Continued Medications: Albuterol 18 GM Inh (Ventolin Hfa 18 GM Inh) 90 Mcg/Act Aer 2 PUFF INH Q4H PRN for SHORTNESS OF BREATH, #1 INHALER 0 Refills Albuterol 8.5 GM Inh (Proair Hfa 8.5 GM Inh) 90 Mcg/Act Aer 1 PUFF INH Q4H PRN for SHORTNESS OF BREATH, #1 INHALER 0 Refills 108 mcg/actuation Amlodipine (Amlodipine) 10 Mg Tab 10 MG PO DAILY for Blood Pressure Management, #30 TAB [address] (Aspirin 81) 81 Mg Tabdr 81 MG PO DAILY, TAB 0 Refills Atorvastatin (Atorvastatin) 80 Mg Tab 80 MG PO HS for Cholesterol Management, #30 TAB 0 Refills Fenofibrate (Fenofibrate) 145 Mg Tab 145 MG PO DAILY, #30 TAB 0 Refills Hydralazine HCl (Hydralazine HCl) 25 Mg Tablet 25 MG PO TID for Blood Pressure Management, #90 TAB 0 Refills Metformin (Metformin) 1,000 Mg Tab 1000 MG PO BIDPC for Blood Sugar Management, #60 TAB 0 Refills With meals Metoprolol Tartrate (Metoprolol Tartrate) 25 Mg Tab 25 MG PO Q12H for heart, #60 TAB Nitroglycerin SL (Nitroglycerin SL) 0.4 Mg Subl 0.4 MG SL DIRECTED PRN for CHEST PAIN, #100 TAB.SL 0 Refills ONE TABLET UNDER THE TONGUE NEEDED FOR CHEST PAIN, MAY REPEAT EVERY FIVE MINUTES FOR A TOTAL OF 3 DOSES OR CALL 911 IF NO RELIEF Prasugrel (Effient) 10 Mg Tab 10 MG PO DAILY for Blood Clot Prevention, #30 TAB 0 Refills Ranolazine ER 12 HR (Ranexa ER 12 HR) 1,000 Mg Tab 1000 MG PO BID for Chest Pain, #60 TAB 0 Refills Tiotropium Inh (Spiriva Handihaler) 18 Mcg Cap 18 MCG INH DAILY for COPD, #30 CAP 0 Refills 1 capsule = 18 mcg Discontinued Medications: Dapagliflozin (Farxiga) 5 Mg Tab 5 MG PO DAILY for Blood Sugar Management, #30 TAB 0 Refills Furosemide (Furosemide) 20 Mg Tab 20 MG PO BID, #60 TAB 0 Refills Furosemide (Furosemide) 20 Mg Tab 20 MG PO DAILY, #30 TAB 0 Refills Insulin Aspart Inj (Novolog Inj) 100 Unit/Ml Inj 10 UNIT SQ TIDAC Insulin Glargine Inj (Lantus Inj) 1,000 Unit/10 Ml Vial 40 UNITS SQ BID for Blood Sugar Management, VIAL 0 Refills Isosorbide Mononitrate ER (Isosorbide Mononitrate ER) 30 Mg Irma 30 MG PO DAILY@07, #30 TAB Labetalol (Labetalol) 200 Mg Tab 200 MG PO BID for Blood Pressure Management, TAB 0 Refills Oxybutynin ER 24 HR (Oxybutynin ER 24 HR) 15 Mg Tab 15 MG PO DAILY for Overactive Bladder, #30 TAB 4 Refills Pregabalin (Lyrica) 150 Mg Cap 150 MG PO BID, #60 CAP 0 Refills Sitagliptin (Januvia) 50 Mg Tab 50 MG PO DAILY for Blood Sugar Management, #30 TAB 0 Refills Spironolactone (Spironolactone) 50 Mg Tab 50 MG PO DAILY, #30 TAB 0 Refills Valsartan (Valsartan) 160 Mg Tab 160 MG PO BID, #60 TAB 0 Refills Valsartan (Valsartan) 160 Mg Tab 160 MG PO DAILY, #30 TAB 0 Refills Zolpidem (Ambien) 10 Mg Tab 10 MG PO HS PRN for INSOMNIA, TAB 0 Refills Additional Information Keep blood glucose log take with you to Dr. Weiss's office at follow up appointment Will need outpatient follow up regarding carotid stenosis Bijal Gabriel Aug 08, 2017 12:04
--- NOTE | 2017-08-08 12:38 | HHI.DS ---
Discharge Summary Admission Date Aug 04, 2017 at 21:38 Discharge Date: Aug 08, 2017 Admitting Diagnosis syncope; ARF (1) Syncope ICD Code: R55 - Syncope and collapse (2) Hypotension ICD Code: I95.9 - Hypotension, unspecified (3) HOLLIE (acute kidney injury) ICD Code: N17.9 - Acute kidney failure, unspecified (4) DM (diabetes mellitus) ICD Code: E11.9 - Type 2 diabetes mellitus without complications Status: Chronic Procedures None Brief History - From Admission This is a 51-year-old female with a PMH of HTN, Anxiety, Hyperlipidemia, CHF ( Echo 02/16/2016 w/ EF 50%), COPD and DM who was brought to the ER after syncope x2 today. States she had gotten up to go answer the door when she felt lightheaded and had sudden syncopal event, states she "blacked out" twice. No previous h/o similar symptoms. Denies chest pain or SOB prior to event. On arrival, BP 92/52, HR 80, O2 sat 98% on RA, Afebrile. CBC unremarkable. Creatinine 3.42, previously 1.17 on 06/08/2017. Troponin negative. INR 1.0. UA negative for UTI. CXR was stable exam. CT Head with no acute findings. CBC/BMP: 08/06/17 0500 08/08/17 0515 Significant Findings Laboratory Tests Test 08/06/17 05:00 08/07/17 04:52 08/08/17 05:15 Platelet Count 147 TH/MM3 (150-450) Lymphocytes (%) (Auto) 48.8 % (9.0-44.0) Blood Urea Nitrogen 20 MG/DL (7-18) 20 MG/DL (7-18) Creatinine 1.29 MG/DL (0.50-1.00) 1.02 MG/DL (0.50-1.00) Random Glucose 144 MG/DL (74-106) 134 MG/DL (74-106) 153 MG/DL (74-106) Calcium Level 8.4 MG/DL (8.5-10.1) Chloride Level 109 MEQ/L (98-107) Estimat Glomerular Filtration Rate 53 ML/MIN (>89) 75 ML/MIN (>89) 69 ML/MIN (>89) Imaging Last Impressions Neck CTA 08/07/17 0000 Signed Impressions: CONCLUSION: Mild plaque at the carotid bulb regions without significant stenosis. Carotid Artery Ultrasound 08/05/17 0000 Signed Impressions: CONCLUSION: 1. Right Internal Carotid Artery: Findings indicate <50% stenosis. 2. Left Internal Carotid Artery: Findings indicate 50-69% stenosis. Chest X-Ray 08/04/17 1850 Signed Impressions: CONCLUSION: Stable exam with suspected bilateral parenchymal scarring especially in the lef t upper lobe without hilar retraction. Previous CABG. Head CT 08/04/17 0000 Signed Impressions: CONCLUSION: 1. No acute intracranial abnormalities. PE at Discharge GENERAL: laying in bed CARDIOVASCULAR: Regular rate and rhythm. No obvious murmurs to auscultation. RESPIRATORY: No obvious wheezing. Clear to auscultation. Breath sounds equal bilaterally. GASTROINTESTINAL: Abdomen soft, non-tender, nondistended. MUSCULOSKELETAL: Extremities without edema. No obvious deformities. Hospital Course 1. Syncope: acute syncopal event x2 08/04/17, likely vasovagal from dehydration /hypotension/polypharmacy. CT Head w/ no acute findings. Telemetry, serial trop neg x3. Echo was ordered and pending to eval for valvular abnormality/ cardiomyopathy/outlet obstruction. carotid u/s shows L int carotid art stenosis of 50-69%. Vasc sx consulted for further eval, cleared for DC recommending follow up carotid stenosis as an outpatient. No surgical indication at this time. This was explained to the patient. PT for eval recommending home without PT 2. Hypotension: on multiple antihypertensives per review of medication list, BP 90's systolic,continue to hold BP meds and slowly re-introduce them. I have restarted her amlodipine, isosorbide and now her hydralazine. Monitor BP's closely. Per pt she has been loosing weight (183lbs now down to 173lbs un- intentionally). Pt claims she is up to date with all her preventive care, she follows with Dr. Weiss. Recommended that she f/u w her PCP and inform him of her weight loss. Weight loss can definitely affect BPs and pt may not require all the BP meds she currently is on. We attempted to call pt's pharmacy over the week-end but they were closed. I did have a long discussed w pt and family and explained the importance of knowing what meds to be on and avoid polypharmacy. Family member will be going w her at next Dr sen. I also went over the carotid u/s results. Recommended low sodium diet as well. 3. HOLLIE: Creatinine 3.42 --> 2.97-->1.29-->0.95 --> 1.02 previously 1.17 on . UA negative for UTI. s/p IVF for hydration, monitor I/O 4. DM: Sliding scale w/ Accu-Cheks. Initially Metformin was held in light of HOLLIE. After HOLLIE improved metformin was restarted. Patient instructed to keep blood glucose log take with you to Dr. Weiss's office at follow up appointment 5. DVT Prophylaxis: SCD/Teds Pt Condition on Discharge: Stable Discharge Disposition: Discharge Home Discharge Time: <= 30 minutes Discharge Instructions DIET: Follow Instructions for: Heart Healthy Diet, Diabetic Diet Activities you can perform: Regular-No Restrictions Follow up Referrals: PCP Follow-up - 3-[address] Weiss Continued Medications: Albuterol 18 GM Inh (Ventolin Hfa 18 GM Inh) 90 Mcg/Act Aer 2 PUFF INH Q4H PRN for SHORTNESS OF BREATH, #1 INHALER 0 Refills Albuterol 8.5 GM Inh (Proair Hfa 8.5 GM Inh) 90 Mcg/Act Aer 1 PUFF INH Q4H PRN for SHORTNESS OF BREATH, #1 INHALER 0 Refills 108 mcg/actuation Amlodipine (Amlodipine) 10 Mg Tab 10 MG PO DAILY for Blood Pressure Management, #30 TAB [address] (Aspirin 81) 81 Mg Tabdr 81 MG PO DAILY, TAB 0 Refills Atorvastatin (Atorvastatin) 80 Mg Tab 80 MG PO HS for Cholesterol Management, #30 TAB 0 Refills Fenofibrate (Fenofibrate) 145 Mg Tab 145 MG PO DAILY, #30 TAB 0 Refills Hydralazine HCl (Hydralazine HCl) 25 Mg Tablet 25 MG PO TID for Blood Pressure Management, #90 TAB 0 Refills Metformin (Metformin) 1,000 Mg Tab 1000 MG PO BIDPC for Blood Sugar Management, #60 TAB 0 Refills With meals Metoprolol Tartrate (Metoprolol Tartrate) 25 Mg Tab 25 MG PO Q12H for heart, #60 TAB Nitroglycerin SL (Nitroglycerin SL) 0.4 Mg Subl 0.4 MG SL DIRECTED PRN for CHEST PAIN, #100 TAB.SL 0 Refills ONE TABLET UNDER THE TONGUE NEEDED FOR CHEST PAIN, MAY REPEAT EVERY FIVE MINUTES FOR A TOTAL OF 3 DOSES OR CALL 911 IF NO RELIEF Prasugrel (Effient) 10 Mg Tab 10 MG PO DAILY for Blood Clot Prevention, #30 TAB 0 Refills Ranolazine ER 12 HR (Ranexa ER 12 HR) 1,000 Mg Tab 1000 MG PO BID for Chest Pain, #60 TAB 0 Refills Tiotropium Inh (Spiriva Handihaler) 18 Mcg Cap 18 MCG INH DAILY for COPD, #30 CAP 0 Refills 1 capsule = 18 mcg Discontinued Medications: Dapagliflozin (Farxiga) 5 Mg Tab 5 MG PO DAILY for Blood Sugar Management, #30 TAB 0 Refills Furosemide (Furosemide) 20 Mg Tab 20 MG PO BID, #60 TAB 0 Refills Furosemide (Furosemide) 20 Mg Tab 20 MG PO DAILY, #30 TAB 0 Refills Insulin Aspart Inj (Novolog Inj) 100 Unit/Ml Inj 10 UNIT SQ TIDAC Insulin Glargine Inj (Lantus Inj) 1,000 Unit/10 Ml Vial 40 UNITS SQ BID for Blood Sugar Management, VIAL 0 Refills Isosorbide Mononitrate ER (Isosorbide Mononitrate ER) 30 Mg Irma 30 MG PO DAILY@07, #30 TAB Labetalol (Labetalol) 200 Mg Tab 200 MG PO BID for Blood Pressure Management, TAB 0 Refills Oxybutynin ER 24 HR (Oxybutynin ER 24 HR) 15 Mg Tab 15 MG PO DAILY for Overactive Bladder, #30 TAB 4 Refills Pregabalin (Lyrica) 150 Mg Cap 150 MG PO BID, #60 CAP 0 Refills Sitagliptin (Januvia) 50 Mg Tab 50 MG PO DAILY for Blood Sugar Management, #30 TAB 0 Refills Spironolactone (Spironolactone) 50 Mg Tab 50 MG PO DAILY, #30 TAB 0 Refills Valsartan (Valsartan) 160 Mg Tab 160 MG PO BID, #60 TAB 0 Refills Valsartan (Valsartan) 160 Mg Tab 160 MG PO DAILY, #30 TAB 0 Refills Zolpidem (Ambien) 10 Mg Tab 10 MG PO HS PRN for INSOMNIA, TAB 0 Refills Additional Information Consult to Dr. Salazar vascular surgery, no procedures Bijal Gabriel Aug 08, 2017 12:38
== END 2017-08-08 13:13 | disposition home or self-care (01) | DRG 684 ==
LOC: NEPC 17:05 → NEDA 21:38 → N06A 22:40
PROVIDERS: ADMIT Internal Medicine; ATTEND Internal Medicine
DX: N17.9 Acute kidney failure, unspecified (principal); I11.0 Hypertensive heart disease with heart failure; I95.9 Hypotension, unspecified; E10.42 Type 1 diabetes mellitus with diabetic polyneuropathy; I50.9 Heart failure, unspecified; I65.23 Occlusion and stenosis of bilateral carotid arteries; J44.9 Chronic obstructive pulmonary disease, unspecified; E10.9 Type 1 diabetes mellitus without complications; E78.5 Hyperlipidemia, unspecified; E86.0 Dehydration; I25.10 Atherosclerotic heart disease of native coronary artery without angina pectoris; I25.2 Old myocardial infarction; K21.9 Gastro-esophageal reflux disease without esophagitis; N32.81 Overactive bladder; F17.210 Nicotine dependence, cigarettes, uncomplicated; F41.9 Anxiety disorder, unspecified; Z79.4 Long term (current) use of insulin; Z82.49 Family history of ischemic heart disease and other diseases of the circulatory system; Z95.1 Presence of aortocoronary bypass graft
CPT/HCPCS: 70450; 70498; 71045; 80048; 80053; 81001; 82550; 82552; 82948; 83735; 84484; 85025; 85610; 85730; 87640; 87641; 93005; 93306; 93880; 94150; 96360; 96361; J1815; J7030; Q9967

== ENCOUNTER 2018-04-11 13:11 | Observation (INO) ==
--- NOTE | 2018-04-11 18:06 | ED ---
VISHAL General Chief Complaint: Recheck/Abnormal Lab/Rx Stated Complaint: Kidney Complaint/Dr Sent Time Seen by Provider: 04/11/18 17:41 Source: patient Mode of arrival: ambulatory Limitations: no limitations History of Present Illness Patient was seen by Dr. marguerite pisano ACE and sent over to the emergency department for admission. Dr. marguerite pisano ACE has been seeing this patient for quite some time with baseline history of CHF cardiomyopathy ejection fraction of 22 was of February 2018, according to Dr. she has been worsening on her extremity edema and shortness of breath despite the fact that he has been increasing her Bumex, currently Bumex at 1 mg twice daily. Apparently patient had blood work on March 26 at which point the patient had a GFR of 25, creatinine of 2.43 and elevated BUN of 60. According to her physician the patient's previous GFR back in December 2017 had a creatinine of 0.93 and a GFR 74 Patient's complaint is progressively worsening shortness of breath, denies any chest pain back pain abdominal pain. Patient also denies any fever nausea vomiting or diarrhea. Past medical history significant for CABG, dilated cardiomyopathy, hypertension , hyperlipidemia, nonrheumatic aortic valve stenosis with insufficiency nonrheumatic mitral valve insufficiency nonrheumatic tricuspid stenosis with insufficiency. Diabetes. MD Complaint: Reports shortness of breath Onset (ago): day(s) Severity: moderate Consistency/Duration: progressively worsening Relieving factors: nothing Exacerbating factors: lying flat Known history of: Reports congestive heart failure Treatment prior to arrival: Reports none Related Data Home oxygen amount: none Home Medications Medication Instructions Recorded Confirmed amlodipine [Norvasc] 10 mg PO DAILY 10/09/17 04/11/18 fenofibrate 145 mg PO DAILY 10/09/17 04/11/18 isosorbide mononitrate 30 mg PO DAILY 10/09/17 04/11/18 metoprolol tartrate 25 mg PO BID 10/09/17 04/11/18 sitagliptin [Januvia] 50 mg PO DAILY 10/09/17 04/11/18 spironolactone 50 mg PO DAILY 10/09/17 04/11/18 zolpidem [Ambien] 10 mg PO HS 10/09/17 04/11/18 aspirin 81 mg PO DAILY 03/05/18 04/11/18 insulin aspart U-100 [Novolog 10 unit SUBCUT TID 03/05/18 04/11/18 U-100 Insulin aspart] insulin glargine [Lantus U-100 40 unit SUBCUT QPM 03/05/18 04/11/18 Insulin] losartan 50 mg PO DAILY 03/05/18 04/11/18 metformin 1,000 mg PO BID 03/05/18 04/11/18 nitroglycerin 0.4 mg SUBLINGUAL Q5-15M PRN 03/05/18 04/11/18 oxybutynin chloride 10 mg PO DAILY 03/05/18 04/11/18 prasugrel [Effient] 10 mg PO DAILY 03/05/18 04/11/18 tiotropium bromide [Spiriva with 1 cap INHALATION DAILY 03/05/18 04/11/18 HandiHaler] Previous Rx's Medication Instructions Recorded albuterol sulfate 2 inh INHALATION Q4-6H PRN #1 each 03/05/18 albuterol sulfate 2.5 mg INHALATION Q6H PRN #90 ml 03/05/18 azithromycin See Label Instructions .ROUTE 03/05/18 .COMPLEX #6 tab furosemide [Lasix] 20 mg PO Q12H #14 tab 03/05/18 potassium chloride 10 meq PO BID #14 tab 03/05/18 Allergies Allergy/AdvReac Type Severity Reaction Status Date / Time benazepril Allergy Severe Swelling Verified 04/11/18 19:42 captopril Allergy Severe Swelling Verified 04/11/18 19:42 enalaprilat Allergy Severe Swelling Verified 04/11/18 19:42 fosinopril Allergy Severe Swelling Verified 04/11/18 19:42 lisinopril Allergy Severe Swelling Verified 04/11/18 19:42 quinapril Allergy Severe Swelling Verified 04/11/18 19:42 *MDRO Multi-Drug Resistant Allergy Unknown UNKNOWN Uncoded 04/11/18 19:42 Organism [facility] Medical History Medical History CAD (coronary artery disease) (Acute) CHF (congestive heart failure) (Acute) Tubal (Acute) Asthma (Acute) COPD (chronic obstructive pulmonary disease) (Acute) Diabetes insipidus (Acute) HTN (hypertension) (Acute) Hypercholesteremia (Acute) Surgical History Surgical History History of cardiac cath (Acute) History of dilatation and curettage (Acute) S/P triple vessel bypass (Acute) Social History Social History Substance History: No History of Abuse Second Hand Smoke Exposure: No Smoking Status: Former smoker Tobacco Type: Cigarettes How Often Do You Have a Drink Containing Alcohol: Never Recent Travel in [facility] [[email or web address]] within the Last 8 Weeks: No Recent Out of Country Travel within the Last 8 Weeks: No Course Initial Documented Vital Signs Temperature 98.5 F 04/11/18 13:26 Pulse Rate 102 H 04/11/18 13:26 Respiratory Rate 20 04/11/18 13:26 Blood Pressure 147/84 H 04/11/18 13:26 Pulse Oximetry 99 04/11/18 13:26 Last Documented Vital Signs Temperature 98.4 F 04/13/18 00:00 Pulse Rate 82 04/13/18 00:00 Respiratory Rate 16 04/13/18 00:00 Blood Pressure 108/69 04/13/18 00:00 Pulse Oximetry 92 L 04/13/18 00:00 Sign Out Sign Out Data: Patient Sign Out occurred on 04/11/18 at 19:20. Patient's care was discussed, and care was transferred from Williams Martínez to Elizabeth Murray MD. Sign Out Comment: Patient is sent over by for admission due to failed outpatient therapy: worsening leg edema/and chf exac despite increase in bumex. also worsening renal creat .93 in dec 2017, increase to creat 2.43 on mar 27, 2018......signed out to incoming physician pending lab results Last updated by Williams Martínez at 04/11/18 18:45 Post-Handoff Eval: Accepted in transfer of care Medical Decision Making MDM Narrative Medical decision making narrative: Accepted in transfer of care per Dr. Martínez patient data is markedly improved compared to records provided by Dr. Moffett; GFR is 80 which is markedly improved from the previous . Patient was noted to have some basilar rales and pedal edema patient has been questionably compliant with her medication; chest x-ray and BNP pending. Medical Screen Exam Complete: Yes Emergency Medical Condition: Yes Lab Data Result diagrams: 04/12/18 05:25 04/12/18 05:25 Lab Results 04/11/18 04/11/18 04/11/18 Range/Units 18:10 18:15 18:15 WBC (4.0-11.0) th/mm3 RBC (4.00-5.30) mil/mm3 Hgb (11.6-15.3) gm/dL Hct (35.0-46.0) % MCV (80.0-100.0) fL MCH (27.0-34.0) pg MCHC (32.0-36.0) % RDW (11.6-17.2) % Plt Count (150-450) th/mm3 MPV (7.0-11.0) fL Neut % (Auto) (16.0-70.0) % Lymph % (Auto) (9.0-44.0) % [place]yer % (Auto) (0.0-8.0) % Eos % (Auto) (0.0-4.0) % Baso % (Auto) (0.0-2.0) % Neut # (Auto) (1.8-7.7) th/mm3 Lymph # (Auto) (1.0-4.8) th/mm3 [place]yer # (Auto) (0.0-0.9) th/mm3 Eos # (Auto) (0.0-0.4) th/mm3 Baso # (Auto) (0.0-0.2) th/mm3 WBC Differential Differential Comment PT 12.8 H (9.8-11.6) sec INR 1.3 Ratio APTT 25.7 (23.4-31.7) sec Sodium (136-145) meq/L Potassium (3.5-5.1) meq/L Chloride (98-107) meq/L Carbon Dioxide (21.0-32.0) meq/L Anion Gap (5-15) meq/L BUN (7-18) mg/dL Creatinine (0.50-1.00) mg/dL Estimated GFR (>89) mL/min POC Glucose (68-110) mg/dl Random Glucose (74-106) mg/dL Calcium (8.5-10.1) mg/dL Total Bilirubin (0.2-1.0) mg/dL AST (15-37) U/L ALT (10-53) U/L Alkaline Phosphatase (45-117) U/L Total Creatine Kinase 100 (26-192) U/L Troponin I Less than 0.02 L (0.02-0.05) ng/mL B-Natriuretic Peptide (0-100) pg/mL Total Protein (6.4-8.2) g/dL Albumin (3.4-5.0) g/dL Lipase (73-393) U/L Urine Color Lissette (Yellw/Straw) Urine Clarity Clear (Clear) Urine pH 5.0 (5.0-8.5) Ur Specific [place] 1.019 (1.002-1.035) Urine Protein 100 H (Neg-Trace) mg/dL Urine Glucose (UA) Negative (Negative) mg/dL Urine Ketones Negative (Negative) mg/dL Urine Occult Blood Negative (Negative) Urine Nitrate Negative (Negative) Urine Bilirubin Negative (Negative) Urine Urobilinogen 4 or greater H (Less than 2) mg/dL Ur Leukocyte Esterase Trace H (Negative) Urine RBC 1 (0-3) /hpf Urine WBC 1 (0-5) /hpf Ur Squamous Epith Cells 6 (0-5) /hpf Urine Mucus Few H (Occasional) /lpf Micro UA Comment Culture not ind Ur Microscopic Review Not Reportable Urine Culture Comments Culture not ind 04/11/18 04/11/18 04/11/18 Range/Units 18:15 18:15 18:15 WBC 4.9 (4.0-11.0) th/mm3 RBC 4.58 (4.00-5.30) mil/mm3 Hgb 14.5 (11.6-15.3) gm/dL Hct 42.4 (35.0-46.0) % MCV 92.6 (80.0-100.0) fL MCH 31.8 (27.0-34.0) pg MCHC 34.3 (32.0-36.0) % RDW 17.2 (11.6-17.2) % Plt Count 140 L (150-450) th/mm3 MPV 10.5 (7.0-11.0) fL Neut % (Auto) 58.8 (16.0-70.0) % Lymph % (Auto) 31.2 (9.0-44.0) % [place]yer % (Auto) 8.6 H (0.0-8.0) % Eos % (Auto) 0.6 (0.0-4.0) % Baso % (Auto) 0.8 (0.0-2.0) % Neut # (Auto) 2.9 (1.8-7.7) th/mm3 Lymph # (Auto) 1.5 (1.0-4.8) th/mm3 [place] # (Auto) 0.4 (0.0-0.9) th/mm3 Eos # (Auto) 0.0 (0.0-0.4) th/mm3 Baso # (Auto) 0.0 (0.0-0.2) th/mm3 WBC Differential . Differential Comment Auto diff final PT (9.8-11.6) sec INR Ratio APTT (23.4-31.7) sec Sodium 142 (136-145) meq/L Potassium 3.5 (3.5-5.1) meq/L Chloride 106 (98-107) meq/L Carbon Dioxide 29.8 (21.0-32.0) meq/L Anion Gap 6 (5-15) meq/L BUN 19 H (7-18) mg/dL Creatinine 0.89 (0.50-1.00) mg/dL Estimated GFR 80 L (>89) mL/min POC Glucose (68-110) mg/dl Random Glucose 164 H (74-106) mg/dL Calcium 7.8 L (8.5-10.1) mg/dL Total Bilirubin 0.8 (0.2-1.0) mg/dL AST 114 H (15-37) U/L ALT 148 H (10-53) U/L Alkaline Phosphatase 200 H (45-117) U/L Total Creatine Kinase (26-192) U/L Troponin I (0.02-0.05) ng/mL B-Natriuretic Peptide 861 H (0-100) pg/mL Total Protein 7.1 (6.4-8.2) g/dL Albumin 2.5 L (3.4-5.0) g/dL Lipase 364 (73-393) U/L Urine Color (Yellw/Straw) Urine Clarity (Clear) Urine pH (5.0-8.5) Ur Specific [place] (1.002-1.035) Urine Protein (Neg-Trace) mg/dL Urine Glucose (UA) (Negative) mg/dL Urine Ketones (Negative) mg/dL Urine Occult Blood (Negative) Urine Nitrate (Negative) Urine Bilirubin (Negative) Urine Urobilinogen (Less than 2) mg/dL Ur Leukocyte Esterase (Negative) Urine RBC (0-3) /hpf Urine WBC (0-5) /hpf Ur Squamous Epith Cells (0-5) /hpf Urine Mucus (Occasional) /lpf Micro UA Comment Ur Microscopic Review Urine Culture Comments 04/11/18 04/12/18 04/12/18 Range/Units 22:29 03:20 05:25 WBC 5.0 (4.0-11.0) th/mm3 RBC 4.30 (4.00-5.30) mil/mm3 Hgb 13.3 (11.6-15.3) gm/dL Hct 40.1 (35.0-46.0) % MCV 93.4 (80.0-100.0) fL MCH 31.1 (27.0-34.0) pg MCHC 33.3 (32.0-36.0) % RDW 17.0 (11.6-17.2) % Plt Count 140 L (150-450) th/mm3 MPV 11.2 H (7.0-11.0) fL Neut % (Auto) 49.0 (16.0-70.0) % Lymph % (Auto) 41.7 (9.0-44.0) % [place]yer % (Auto) 7.7 (0.0-8.0) % Eos % (Auto) 1.0 (0.0-4.0) % Baso % (Auto) 0.6 (0.0-2.0) % Neut # (Auto) 2.5 (1.8-7.7) th/mm3 Lymph # (Auto) 2.1 (1.0-4.8) th/mm3 [place]yer # (Auto) 0.4 (0.0-0.9) th/mm3 Eos # (Auto) 0.0 (0.0-0.4) th/mm3 Baso # (Auto) 0.0 (0.0-0.2) th/mm3 WBC Differential . Differential Comment Auto diff final PT (9.8-11.6) sec INR Ratio APTT (23.4-31.7) sec Sodium (136-145) meq/L Potassium (3.5-5.1) meq/L Chloride (98-107) meq/L Carbon Dioxide (21.0-32.0) meq/L Anion Gap (5-15) meq/L BUN (7-18) mg/dL Creatinine (0.50-1.00) mg/dL Estimated GFR (>89) mL/min POC Glucose 132 H 100 (68-110) mg/dl Random Glucose (74-106) mg/dL Calcium (8.5-10.1) mg/dL Total Bilirubin (0.2-1.0) mg/dL AST (15-37) U/L ALT (10-53) U/L Alkaline Phosphatase (45-117) U/L Total Creatine Kinase (26-192) U/L Troponin I (0.02-0.05) ng/mL B-Natriuretic Peptide (0-100) pg/mL Total Protein (6.4-8.2) g/dL Albumin (3.4-5.0) g/dL Lipase (73-393) U/L Urine Color (Yellw/Straw) Urine Clarity (Clear) Urine pH (5.0-8.5) Ur Specific [place] (1.002-1.035) Urine Protein (Neg-Trace) mg/dL Urine Glucose (UA) (Negative) mg/dL Urine Ketones (Negative) mg/dL Urine Occult Blood (Negative) Urine Nitrate (Negative) Urine Bilirubin (Negative) Urine Urobilinogen (Less than 2) mg/dL Ur Leukocyte Esterase (Negative) Urine RBC (0-3) /hpf Urine WBC (0-5) /hpf Ur Squamous Epith Cells (0-5) /hpf Urine Mucus (Occasional) /lpf Micro UA Comment Ur Microscopic Review Urine Culture Comments 04/12/18 04/12/18 04/12/18 Range/Units 05:25 09:43 13:46 WBC (4.0-11.0) th/mm3 RBC (4.00-5.30) mil/mm3 Hgb (11.6-15.3) gm/dL Hct (35.0-46.0) % MCV (80.0-100.0) fL MCH (27.0-34.0) pg MCHC (32.0-36.0) % RDW (11.6-17.2) % Plt Count (150-450) th/mm3 MPV (7.0-11.0) fL Neut % (Auto) (16.0-70.0) % Lymph % (Auto) (9.0-44.0) % [place]yer % (Auto) (0.0-8.0) % Eos % (Auto) (0.0-4.0) % Baso % (Auto) (0.0-2.0) % Neut # (Auto) (1.8-7.7) th/mm3 Lymph # (Auto) (1.0-4.8) th/mm3 [place] # (Auto) (0.0-0.9) th/mm3 Eos # (Auto) (0.0-0.4) th/mm3 Baso # (Auto) (0.0-0.2) th/mm3 WBC Differential Differential Comment PT (9.8-11.6) sec INR Ratio APTT (23.4-31.7) sec Sodium 143 (136-145) meq/L Potassium 3.2 L (3.5-5.1) meq/L Chloride 108 H (98-107) meq/L Carbon Dioxide 27.0 (21.0-32.0) meq/L Anion Gap 8 (5-15) meq/L BUN 16 (7-18) mg/dL Creatinine 0.72 (0.50-1.00) mg/dL Estimated GFR Greater than 89 (>89) mL/min POC Glucose 198 H 135 H (68-110) mg/dl Random Glucose 107 H (74-106) mg/dL Calcium 7.9 L (8.5-10.1) mg/dL Total Bilirubin (0.2-1.0) mg/dL AST (15-37) U/L ALT (10-53) U/L Alkaline Phosphatase (45-117) U/L Total Creatine Kinase (26-192) U/L Troponin I (0.02-0.05) ng/mL B-Natriuretic Peptide (0-100) pg/mL Total Protein (6.4-8.2) g/dL Albumin (3.4-5.0) g/dL Lipase (73-393) U/L Urine Color (Yellw/Straw) Urine Clarity (Clear) Urine pH (5.0-8.5) Ur Specific [place] (1.002-1.035) Urine Protein (Neg-Trace) mg/dL Urine Glucose (UA) (Negative) mg/dL Urine Ketones (Negative) mg/dL Urine Occult Blood (Negative) Urine Nitrate (Negative) Urine Bilirubin (Negative) Urine Urobilinogen (Less than 2) mg/dL Ur Leukocyte Esterase (Negative) Urine RBC (0-3) /hpf Urine WBC (0-5) /hpf Ur Squamous Epith Cells (0-5) /hpf Urine Mucus (Occasional) /lpf Micro UA Comment Ur Microscopic Review Urine Culture Comments 04/12/18 04/12/18 Range/Units 17:37 21:52 WBC (4.0-11.0) th/mm3 RBC (4.00-5.30) mil/mm3 Hgb (11.6-15.3) gm/dL Hct (35.0-46.0) % MCV (80.0-100.0) fL MCH (27.0-34.0) pg MCHC (32.0-36.0) % RDW (11.6-17.2) % Plt Count (150-450) th/mm3 MPV (7.0-11.0) fL Neut % (Auto) (16.0-70.0) % Lymph % (Auto) (9.0-44.0) % [place] % (Auto) (0.0-8.0) % Eos % (Auto) (0.0-4.0) % Baso % (Auto) (0.0-2.0) % Neut # (Auto) (1.8-7.7) th/mm3 Lymph # (Auto) (1.0-4.8) th/mm3 [place] # (Auto) (0.0-0.9) th/mm3 Eos # (Auto) (0.0-0.4) th/mm3 Baso # (Auto) (0.0-0.2) th/mm3 WBC Differential Differential Comment PT (9.8-11.6) sec INR Ratio APTT (23.4-31.7) sec Sodium (136-145) meq/L Potassium (3.5-5.1) meq/L Chloride (98-107) meq/L Carbon Dioxide (21.0-32.0) meq/L Anion Gap (5-15) meq/L BUN (7-18) mg/dL Creatinine (0.50-1.00) mg/dL Estimated GFR (>89) mL/min POC Glucose 139 H 186 H (68-110) mg/dl Random Glucose (74-106) mg/dL Calcium (8.5-10.1) mg/dL Total Bilirubin (0.2-1.0) mg/dL AST (15-37) U/L ALT (10-53) U/L Alkaline Phosphatase (45-117) U/L Total Creatine Kinase (26-192) U/L Troponin I (0.02-0.05) ng/mL B-Natriuretic Peptide (0-100) pg/mL Total Protein (6.4-8.2) g/dL Albumin (3.4-5.0) g/dL Lipase (73-393) U/L Urine Color (Yellw/Straw) Urine Clarity (Clear) Urine pH (5.0-8.5) Ur Specific [place] (1.002-1.035) Urine Protein (Neg-Trace) mg/dL Urine Glucose (UA) (Negative) mg/dL Urine Ketones (Negative) mg/dL Urine Occult Blood (Negative) Urine Nitrate (Negative) Urine Bilirubin (Negative) Urine Urobilinogen (Less than 2) mg/dL Ur Leukocyte Esterase (Negative) Urine RBC (0-3) /hpf Urine WBC (0-5) /hpf Ur Squamous Epith Cells (0-5) /hpf Urine Mucus (Occasional) /lpf Micro UA Comment Ur Microscopic Review Urine Culture Comments Imaging Data Radiologist's impression: Chest X-Ray 04/11/18 19:04 CONCLUSION: 1. Significant cardiomegaly. 2. Patchy bilateral pulmonary infiltrates. Pattern of distribution is not typical for pulmonary edema. Although this is still within the differential. An infectious etiology could have this appearance. ECG Data EKG Prior to Arrival: No Attestation: I personally reviewed and interpreted this ECG as follows: Prior ECG tracings: not available for review Interpretation: Sinus tachycardia, 100 bpm, normal intervals, left atrial enlargement, PACs, left atrial enlargement, nonspecific ST-T wave changes. No evidence of any acute ST elevation VA pattern noted. Discharge Plan Discharge Disposition Patient Disposition: ED Admit(ED Internal Use Only) Discharge Order Discharge Orders: ED Use Only Admit Order (Routine); Ordered 04/11/18 Ordered By: Elizabeth Murray Physicians Team ED Provider: Elizabeth Murray Primary Care Provider: UNKNOWN, Attending Provider: Cindy Osborne Other Providers: [facility],Insurance Status ED Status: Left Department Discharge Information Discharge Date/Time: 04/12/18 10:51
[2018-04-11 18:31] LABS: Baso % (Auto) 0.8 % (0.0-2.0); Eos % (Auto) 0.6 % (0.0-4.0); Hematocrit 42.4 % (35.0-46.0); Hemoglobin 14.5 gm/dL (11.6-15.3); Lymph # (Auto) 1.5 th/mm3 (1.0-4.8); Lymph % (Auto) 31.2 % (9.0-44.0); Mean Corpuscular HGB Conc 34.3 % (32.0-36.0); Mean Corpuscular Hemoglobin 31.8 pg (27.0-34.0); Mean Corpuscular Volume 92.6 fL (80.0-100.0); Mean Platelet Volume 10.5 fL (7.0-11.0); Mono # (Auto) 0.4 th/mm3 (0.0-0.9); Mono % (Auto) 8.6 % (0.0-8.0); Neut # (Auto) 2.9 th/mm3 (1.8-7.7); Neut % (Auto) 58.8 % (16.0-70.0); Platelet Count 140 th/mm3 (150-450); Red Blood Count 4.58 mil/mm3 (4.00-5.30); Red Cell Distribution Width 17.2 % (11.6-17.2); White Blood Count 4.9 th/mm3 (4.0-11.0)
[2018-04-11 18:40] LABS: Activated Partial Thrombo Time 25.7 sec (23.4-31.7); INR 1.3 Ratio; Prothrombin Time 12.8 sec (9.8-11.6)
[2018-04-11 18:40] LABS: Bilirubin,Urine Negative (Negative); Clarity,Urine Clear (Clear); Color,Urine Amber (Yellw/Straw); Glucose,Urine (UA) Negative (Negative); Leukocyte Esterase,Urine Trace (Negative); Mucus,Urine Few /lpf (Occasional); Nitrite,Urine Negative (Negative); Specific Gravity,Urine 1.019 (1.002-1.035); Squamous Epithelial Cell,Urine 6 /hpf (0-5)
[2018-04-11 18:43] LABS: Urobilinogen,Urine 4 or Greater mg/dL (Less than 2)
[2018-04-11 18:51] LABS: Albumin 2.5 g/dL (3.4-5.0); Anion Gap 6 meq/L (5-15); Aspartate Aminotransferase 114 U/L (15-37); Blood Urea Nitrogen 19 mg/dL (7-18); Calcium 7.8 mg/dL (8.5-10.1); Carbon Dioxide 29.8 meq/L (21.0-32.0); Chloride 106 meq/L (98-107); Glomerular Filtration Rate 80 mL/min (>89); Glucose,Random 164 mg/dL (74-106); Lipase 364 U/L (73-393); Potassium 3.5 meq/L (3.5-5.1); Sodium 142 meq/L (136-145)
[2018-04-11 18:55] LABS: Alanine Aminotransferase 148 U/L (10-53); Alkaline Phosphatase 200 U/L (45-117); Total Protein 7.1 g/dL (6.4-8.2)
[2018-04-11 19:03] LABS: Creatine Kinase 100 U/L (26-192)
--- NOTE | 2018-04-11 19:28 | ECG ---
Date Performed: 04/11/2018 Time Performed: 18:10:48 PTAGE: 52 years EKG: SINUS TACHYCARDIA WITH OCCASIONAL SUPRAVENTRICULAR PREMATURE COMPLEXES POSSIBLE LEFT ATRIAL ENLARGEMENT LOW QRS VOLTAGE IN EXTREMITY LEADS POSSIBLE ANTERIOR MYOCARDIAL INFARCTION ABNORMAL ECG Since PREVIOUS TRACING , no significant change noted PREVIOUS TRACIN03/05/2018 16.59 DOCTOR: Jessica Noyola Interpretating Date/Time 04/11/2018 19:28:16
--- NOTE | 2018-04-11 20:22 | XR ---
EXAM DATE: 04/11/2018 8:06 PM EST AGE/SEX: 52 years / Female INDICATIONS: Short of breath. CLINICAL DATA: This is the patient's initial encounter. Patient reports that signs and symptoms have been present for 1 day and indicates a pain score of 2/10. MEDICAL/SURGICAL HISTORY: Cardiovascular disease. Heart attack. CABG. Coronary artery stent. COMPAR[place]: [facility] [place] 1[place] SINGLE AP, 03/05/2018. . FINDINGS: A single AP view of the chest demonstrates significant cardiomegaly. Patchy bilateral intra-alveolar opacities are seen involving the upper lobes and lower lobes. Most pronounced within the right lower lobe. No effusions. Median sternotomy wires and coronary markers. Bony structures are otherwise unrem arkable. CONCLUSION: 1. Significant cardiomegaly. 2. Patchy bilateral pulmonary infiltrates. Pattern of distribution is not typical for pulmonary tae a. Although this is still within the differential. An infectious etiology could have this appearance. Electronically signed by: Michael Bansal MD Board Certified Radiologist 04/11/2018 8:20 PM EST
[2018-04-11] MEDS ORDERED: Bisacodyl 10 MG Supp RECTAL PRN (22:10)
[2018-04-11] MEDS ORDERED: Dextrose 50% in Water 50 ML Vial IV.PUSH PRN (22:10)
[2018-04-11] MEDS ORDERED: Acetaminophen 325 MG Tablet PO PRN (22:10)
[2018-04-11] MEDS: Heparin - SQ 10,000 UNITS/ML Vial SQ SCH (22:19)
[2018-04-12] MEDS: Insulin NovoLOG Aspart Correctional Sugar Inj SQ SCH ×5 (03:33→22:12)
--- NOTE | 2018-04-12 04:45 | P.HPIM ---
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 The patient reports she was sent for declining renal function and a CHF exacerbation. She endorses shortness of breath and bilateral pedal edema. No abdominal pain. No nausea/ vomiting/diarrhea. No focal neurologic deficits. No fever/chills. Review of Systems Review of Systems: all other systems reviewed are negative [facility] Medical History Medical History CAD (coronary artery disease) (Acute) CHF (congestive heart failure) (Acute) Tubal (Acute) Asthma (Acute) COPD (chronic obstructive pulmonary disease) (Acute) Diabetes insipidus (Acute) HTN (hypertension) (Acute) Hypercholesteremia (Acute) Surgical History Surgical History History of cardiac cath (Acute) History of dilatation and curettage (Acute) S/P triple vessel bypass (Acute) Family History Family History Other Coronary artery disease Diabetes mellitus Social History Social History Substance History: Past History Second Hand Smoke Exposure: No Smoking Status: Former smoker Tobacco Type: Cigarettes How Often Do You Have a Drink Containing Alcohol: Unable to Obtain Recent Travel in [place] within the Last 8 Weeks: No Recent Out of Country Travel within the Last 8 Weeks: No Substance Abuse Detail Alcohol: Substance Use Status: Sustained Remission Route Used Substance Abuse: By Mouth Immunization History Tetanus Immunization: Unsure Medications and Allergies Allergies Allergy/AdvReac Type Severity Reaction Status Date / Time benazepril Allergy Severe Swelling Verified 04/11/18 19:42 captopril Allergy Severe Swelling Verified 04/11/18 19:42 enalaprilat Allergy Severe Swelling Verified 04/11/18 19:42 fosinopril Allergy Severe Swelling Verified 04/11/18 19:42 lisinopril Allergy Severe Swelling Verified 04/11/18 19:42 quinapril Allergy Severe Swelling Verified 04/11/18 19:42 *MDRO Multi-Drug Resistant Allergy Unknown UNKNOWN Uncoded 04/11/18 19:42 Organism Home Medications Medication Instructions Recorded Confirmed Type amlodipine [Norvasc] 10 mg PO DAILY 10/09/17 04/11/18 History fenofibrate 145 mg PO DAILY 10/09/17 04/11/18 History isosorbide mononitrate 30 mg PO DAILY 10/09/17 04/11/18 History metoprolol tartrate 25 mg PO BID 10/09/17 04/11/18 History sitagliptin [Januvia] 50 mg PO DAILY 10/09/17 04/11/18 History spironolactone 50 mg PO DAILY 10/09/17 04/11/18 History zolpidem [Ambien] 10 mg PO HS 10/09/17 04/11/18 History aspirin 81 mg PO DAILY 03/05/18 04/11/18 History insulin aspart U-100 [Novolog 10 unit SUBCUT TID 03/05/18 04/11/18 History U-100 Insulin aspart] insulin glargine [Lantus U-100 40 unit SUBCUT QPM 03/05/18 04/11/18 History Insulin] losartan 50 mg PO DAILY 03/05/18 04/11/18 History metformin 1,000 mg PO BID 03/05/18 04/11/18 History nitroglycerin 0.4 mg SUBLINGUAL Q5-15M PRN 03/05/18 04/11/18 History oxybutynin chloride 10 mg PO DAILY 03/05/18 04/11/18 History prasugrel [Effient] 10 mg PO DAILY 03/05/18 04/11/18 History tiotropium bromide [Spiriva with 1 cap INHALATION DAILY 03/05/18 04/11/18 History HandiHaler] Active Medications: Active Medications Acetaminophen (Tylenol) 650 mg PO Q4H PRN PRN Reason: Temp > 100.4 Al Hydroxide/Mg Hydroxide (Milk Of Magnesia Liq) 30 ml PO Q12H PRN PRN Reason: Mild Constipation Amlodipine Besylate (Norvasc) 10 mg PO DAILY [facility] Aspirin (Ecotrin) 81 mg PO DAILY [facility] Bisacodyl (Dulcolax Supp) 10 mg RECTAL DAILY PRN PRN Reason: SEVERE CONSITIPATION Dextrose (D50w Vial) 50 ml IV.PUSH UNSCH PRN PRN Reason: PER HYPOGLYCEMIA PROTOCOL Glucagon (Glucagon Inj) 1 mg OTHER PRN PRN PRN Reason: for Hypoglycemia Protocol Heparin Sodium (Porcine) (Heparin Inj) 5,000 units SQ Q12H [facility] Last Admin: 04/11/18 22:19 Dose: 5,000 units Insulin Aspart (Novolog Insulin Correctional Sugar Inj) 0 unit SQ ACHS AND 3AM JENA; Protocol Last Admin: 04/12/18 03:33 Dose: Not Given Isosorbide Mononitrate (Imdur) 30 mg PO DAILY [facility] Lactulose (Lactulose Liq) 30 ml PO DAILY PRN PRN Reason: SEVERE CONSITIPATION Losartan Potassium (Cozaar) 50 mg PO DAILY [facility] Metoprolol Tartrate (Lopressor) 25 mg PO BID [facility] Non-Formulary Medication (Fenofibrate [Fenofibrate]) 145 mg PO DAILY [facility] Non-Formulary Medication (Insulin Glargine) 40 unit SQ QPM [facility] Non-Formulary Medication (Oxybutynin Chloride [Oxybutynin Chloride]) 10 mg PO DAILY [facility] Non-Formulary Medication (Potassium Chloride [Potassium Chloride]) 10 meq PO BID [facility] Ondansetron HCl (Zofran Inj) 4 mg IV.PUSH Q6H PRN PRN Reason: NAUSEA OR VOMITING Prasugrel (Effient) 10 mg PO DAILY [facility] Senna/Docusate Sodium (Muna-Colace) 1 tab PO BID [facility] Sennosides (Senokot) 17.2 mg PO Q12H PRN PRN Reason: Moderate Constipation Sodium Chloride (Ns Flush) 2 ml IV.FLUSH PRN PRN PRN Reason: FLUSH AFTER USING IV ACCESS Sodium Chloride (Ns Flush) 2 ml IV.FLUSH BID [facility] Sodium Chloride (Ns Flush) 2 ml IV.FLUSH PRN PRN PRN Reason: FLUSH AFTER USING IV ACCESS Spironolactone (Aldactone) 50 mg PO DAILY [facility] Tiotropium Victoria (Spiriva 18 Mcg Inh) 18 mcg INH DAILY [facility] Zolpidem Tartrate (Ambien) 10 mg PO HS [facility] Physical Exam Vital signs: Vital Signs 04/11/18 13:26 04/11/18 19:00 04/11/18 20:00 Temperature 98.5 F Pulse Rate 102 H 91 H 92 H Respiratory Rate 20 21 18 Blood Pressure 147/84 H 155/92 H 167/104 H Pulse Oximetry 99 97 98 04/11/18 21:00 04/11/18 22:00 04/11/18 22:29 Temperature Pulse Rate 92 H 93 H 96 H Respiratory Rate 22 Blood Pressure 158/92 H 166/100 H 166/100 H Pulse Oximetry 98 96 96 04/11/18 23:00 04/11/18 23:43 04/12/18 02:12 Temperature Pulse Rate 93 H 93 H 93 H Respiratory Rate 18 18 Blood Pressure 139/85 122/79 143/85 H Pulse Oximetry 97 97 97 Intake & Output 04/11/18 04/11/18 04/12/18 06:59 18:59 06:59 Weight 67.132 kg Narrative: Gen.: No acute distress Head: Normocephalic. Atraumatic. EENT: Pupils equal round and reactive to light. Nose without drainage. Airway intact. Throat without injection. Cardiovascular: Regular rate and rhythm. No murmurs, rubs or gallops. Respiratory: Lungs clear to auscultation bilaterally. No wheezes or rhonchi. Abdomen: Soft, nontender, nondistended. No peritoneal signs. Musculoskeletal: No gross deformities. Bilateral pedal edema. Skin: No obvious rashes or erythema. Neuro: Sensory and motor grossly intact. Cranial nerves II through XII grossly intact. Results Labs CBC & Chem 7: 04/11/18 18:15 04/11/18 18:15 Imaging Impressions Chest X-Ray 04/11/18 19:04 CONCLUSION: 1. Significant cardiomegaly. 2. Patchy bilateral pulmonary infiltrates. Pattern of distribution is not typical for pulmonary edema. Although this is still within the differential. An infectious etiology could have this appearance. Caprini VTE Risk Assessment Caprini VTE Risk Assessment: No/Low Risk (score <= 1) Caprini Risk Assessment Model: Point Value = 1 Point Value = 2 Point Value = 3 Point Value = 5 Age 41-60 Minor surgery BMI > 25 kg/m2 Swollen legs Varicose veins or History of unexplained or recurrent spontaneous Oral contraceptives or hormone replacement Sepsis (< 1 month) Serious lung disease, including pneumonia (< 1 month) Abnormal pulmonary function Acute myocardial infarction Congestive heart failure (< 1 month) History of inflammatory bowel disease Medical patient at bed rest Age 61-74 Arthroscopic surgery Major open surgery (> 45 min) Laparoscopic surgery (> 45 min) Malignancy Confined to bed (> 72 hours) Immobilizing plaster cast Central venous access Age >= 75 History of VTE Family history of VTE Factor V Leiden Prothrombin [id number] Lupus anticoagulant Anticardiolipin antibodies Elevated serum homocysteine Heparin-induced thrombocytopenia Other congenital or acquired thrombophilia Stroke (< 1 month) Elective arthroplasty Hip, pelvis, or leg fracture Acute spinal cord injury (< 1 month) Prophylaxis Regimen: Total Risk Factor Score Risk Level Prophylaxis Regimen 0-1 Low Early ambulation 2 Moderate Order ONE of the following: *Sequential Compression Device (SCD) *Heparin 5000 units SQ BID 3-4 Higher Order ONE of the following medications: *Heparin 5000 units SQ TID *Enoxaparin/Lovenox 40 mg SQ daily (WT < 150 kg, CrCl > 30 mL/min) *Enoxaparin/Lovenox 30 mg SQ daily (WT < 150 kg, CrCl > 10-29 mL/min) *Enoxaparin/Lovenox 30 mg SQ BID (WT < 150 kg, CrCl > 30 mL/min) AND/OR *Sequential Compression Device (SCD) 5 or more Highest Order ONE of the following medications: *Heparin 5000 units SQ TID (Preferred with Epidurals) *Enoxaparin/Lovenox 40 mg SQ daily (WT < 150 kg, CrCl > 30 mL/min) *Enoxaparin/Lovenox 30 mg SQ daily (WT < 150 kg, CrCl > 10-29 mL/min) *Enoxaparin/Lovenox 30 mg SQ BID (WT < 150 kg, CrCl > 30 mL/min) AND *Sequential Compression Device (SCD) Assessment and Plan Plan Assessment/plan: 1. ? CHF exacerbation Patient reports she was sent by her steam table worker, Dr. Moffett for worsening renal function and a CHF exacerbation. Chest x-ray does not show pulmonary edema, personally reviewed Patient's BNP 861, appears to be baseline for the patient Continue home medications Follow-up as outpatient 2. ? Acute renal failure According to ED documentation, the patient had an increase in her BUN/ creatinine with outpatient labs. BUN/creatinine done in the emergency department 19/0.89 3. Pneumonia Chest x-ray shows bilateral infiltrate Rocephin/azithromycin 4. Hypertension/hyperlipidemia/CAD/COPD Continue home medications Due to the patient's clinical presentation, the ER physician was uncomfortable discharging the patient home and has recommended admission to this facility. At their request, the patient will be admitted to observation. FEN Heart healthy diet Electrolytes: Monitor and replete as needed
[2018-04-12] MEDS ORDERED: Azithromycin Inj 500 MG in Sodium Chlor 0.9% Inj 250 ML IV.SIG SCH (05:00)
[2018-04-12 06:10] LABS: Baso % (Auto) 0.6 % (0.0-2.0); Hematocrit 40.1 % (35.0-46.0); Hemoglobin 13.3 gm/dL (11.6-15.3); Lymph # (Auto) 2.1 th/mm3 (1.0-4.8); Lymph % (Auto) 41.7 % (9.0-44.0); Mean Corpuscular HGB Conc 33.3 % (32.0-36.0); Mean Corpuscular Hemoglobin 31.1 pg (27.0-34.0); Mean Corpuscular Volume 93.4 fL (80.0-100.0); Mean Platelet Volume 11.2 fL (7.0-11.0); Mono # (Auto) 0.4 th/mm3 (0.0-0.9); Mono % (Auto) 7.7 % (0.0-8.0); Neut # (Auto) 2.5 th/mm3 (1.8-7.7); Platelet Count 140 th/mm3 (150-450)
[2018-04-12 06:40] LABS: Anion Gap 8 meq/L (5-15); Blood Urea Nitrogen 16 mg/dL (7-18); Calcium 7.9 mg/dL (8.5-10.1); Chloride 108 meq/L (98-107); Glomerular Filtration Rate Greater Than 89 mL/min (>89); Glucose,Random 107 mg/dL (74-106); Potassium 3.2 meq/L (3.5-5.1); Sodium 143 meq/L (136-145)
[2018-04-12] MEDS ORDERED: amLODIPine 10 MG Tablet PO SCH (09:00)
[2018-04-12] MEDS ORDERED: FENOFIBRATE 145 MG PO SCH (09:00)
[2018-04-12] MEDS ORDERED: OXYBUTYNIN CHLORIDE 10 MG PO SCH (09:00)
[2018-04-12] MEDS: Tiotropium Bromide 18 MCG/ACT Inhaler INH SCH (09:43)
[2018-04-12] MEDS: Tolterodine Tartrate LA 4 MG Capsule PO SCH (09:45)
[2018-04-12] MEDS: Fenofibrate 145 MG Tablet PO SCH (09:45)
[2018-04-12] MEDS: Metoprolol Tartrate 25 MG Tablet PO SCH ×2 (09:45→22:09)
[2018-04-12] MEDS: Spironolactone 50 MG Tablet PO SCH (09:46)
[2018-04-12] MEDS: Isosorbide Mononitrate 30 MG ER 24HR Tablet (Imdur) PO SCH (09:46)
[2018-04-12] MEDS: Senna/Docusate Sodium 8.6/50 MG Tablet PO SCH ×2 (09:47→22:12)
[2018-04-12] MEDS: Heparin - SQ 10,000 UNITS/ML Vial SQ SCH ×2 (09:59→22:11)
--- NOTE | 2018-04-12 18:41 | ECHRPT ---
Indication: heart failure CONCLUSIONS Normal left ventricular size. Wall thickness is normal. The left ventricular systolic function is severely reduced with an estimated ejection fraction in th e range of 30-35%. The left atrial size is upper limits of normal. Moderate thickening of the mitral valve leaflets. [id number] mitral valve regurgitation. Trace aortic valve regurgitation. There is moderate to severe tricuspid valve regurgitation. The estimated pulmonary arterial pressure is 33 mmHg. BP: / HR: Rhythm: MEASUREMENTS (Male / Female) Normal Values Technical Quality: 2D ECHO LV Diastolic Diameter PLAX 4.5 cm 4.2 - 5.9 / 3.9 - 5.3 cm LV Systolic Diameter PLAX 3.9 cm IVS Diastolic Thickness 1.2 cm 0.6 - 1.0 / 0.6 - 0.9 cm LVPW Diastolic Thickness 1.2 cm 0.6 - 1.0 / 0.6 - 0.9 cm LV Relative Wall Thickness 0.5 RV Internal Dim ED PLAX 3.5 cm LVOT Diameter 1.9 cm Aortic Root Diameter 2.2 cm LA Systolic Diameter LX 3.8 cm 3.0 - 4.0 / 2.7 - 3.8 cm M-MODE Aortic Root Diameter MM 2.7 cm LA Systolic Diameter MM 4.4 cm LA Ao Ratio MM 1.6 AV Cusp Separation MM 1.2 cm DOPPLER AV Peak Velocity 107.0 cm/s AV Peak Gradient 4.6 mmHg LVOT Peak Velocity 63.5 cm/s LVOT Peak Gradient 1.6 mmHg AV Area Cont Eq pk 1.7 cm Mitral E Point Velocity 109.0 cm/s Mitral A Point Velocity 57.4 cm/s Mitral E to A Ratio 1.9 LV E' Lateral Velocity 10.6 cm/s Mitral E to LV E' Lateral Ratio 10.3 LV E' Septal Velocity 5.5 cm/s Mitral E to LV E' Septal Ratio 20.0 TR Peak Velocity 240.0 cm/s TR Peak Gradient 23.0 mmHg Right Atrial Pressure 10.0 mmHg Pulmonary Artery Systolic Pressu 33.0 mmHg Right Ventricular Systolic Press 33.0 mmHg PV Peak Velocity 70.6 cm/s PV Peak Gradient 2.0 mmHg FINDINGS LEFT VENTRICLE Normal left ventricular size. Wall thickness is normal. The left ventricular systolic function is severely reduced with an estimated ejection fraction in th e range of 30-35%. RIGHT VENTRICLE Normal right ventricular size and systolic function. LEFT ATRIUM The left atrial size is upper limits of normal. RIGHT ATRIUM The right atrial size is normal. ATRIAL SEPTUM Normal atrial septal thickness without atrial level shunting by limited color doppler interrogation. AORTA The aortic root and proximal ascending aorta are normal in size on limited imaging. MITRAL VALVE Moderate thickening of the mitral valve leaflets. [id number] mitral valve regurgitation. AORTIC VALVE Trace aortic valve regurgitation. TRICUSPID VALVE There is moderate to severe tricuspid valve regurgitation. The estimated pulmonary arterial pressure is 33 mmHg. PULMONARY VALVE No pulmonary valve regurgitation or stenosis. VESSELS The inferior vena cava is normal in size. PERICARDIUM No pericardial effusion. Warner Markham MD, FACC (Electronically Signed) Final Date:12 April 2018 18:41
[2018-04-12] MEDS ORDERED: Insulin Detemir Inj 1,000 UNIT/10 ML Vial SQ SCH (18:50)
[2018-04-13] MEDS: Insulin NovoLOG Aspart Correctional Sugar Inj SQ SCH ×3 (04:16→14:08)
[2018-04-13 07:49] VITALS: RESP 16
[2018-04-13] MEDS: Tolterodine Tartrate LA 4 MG Capsule PO SCH (08:42)
[2018-04-13] MEDS: Fenofibrate 145 MG Tablet PO SCH (08:43)
[2018-04-13] MEDS: Spironolactone 50 MG Tablet PO SCH (08:44)
[2018-04-13] MEDS: Metoprolol Tartrate 25 MG Tablet PO SCH (08:45)
[2018-04-13] MEDS: Isosorbide Mononitrate 30 MG ER 24HR Tablet (Imdur) PO SCH (08:45)
[2018-04-13] MEDS: Tiotropium Bromide 18 MCG/ACT Inhaler INH SCH (08:47)
[2018-04-13] MEDS: Senna/Docusate Sodium 8.6/50 MG Tablet PO SCH (08:47)
[2018-04-13 09:51] LABS: Calcium 8.6 mg/dL (8.5-10.1); Carbon Dioxide 26.1 meq/L (21.0-32.0); Magnesium 1.7 mg/dL (1.5-2.5); Potassium 3.6 meq/L (3.5-5.1)
[2018-04-13 12:01] VITALS: TEMP 98.6; O2SAT 95
[2018-04-13] MEDS: Heparin - SQ 10,000 UNITS/ML Vial SQ SCH (14:51)
--- NOTE | 2018-04-13 15:29 | P.PNIM ---
Subjective Interval history: No current complaints. SOB has resolved. Patient is laying down in bed, no complaints. Physical Exam Vital signs: Vital Signs 04/12/18 16:00 04/12/18 18:57 04/12/18 19:45 Temperature 98.6 F 98.5 F Pulse Rate 85 106 H 86 Respiratory Rate 18 16 Blood Pressure 109/72 107/69 Pulse Oximetry 97 97 04/12/18 20:05 04/13/18 00:00 04/13/18 04:00 Temperature 98.4 F 98.5 F Pulse Rate 85 91 H 88 Respiratory Rate 16 12 Blood Pressure 108/69 106/57 L Pulse Oximetry 92 L 94 L 04/13/18 07:49 04/13/18 12:00 Temperature 98.4 F 98.6 F Pulse Rate 95 H 78 Respiratory Rate 16 16 Blood Pressure 131/83 124/80 Pulse Oximetry 94 L 95 Intake & Output 04/12/18 04/13/18 04/13/18 18:59 06:59 18:59 Intake Total 280 / 280 Balance 280 / 280 Weight 55.338 kg Intake: Oral 280 / 280 Other: # Voids 2 Date of Last Bowel Movement 04/12/18 Weight On Admission 55.338 kg Narrative: Alert and oriented x 3 S1S2 CTA b/l abd soft, normal bowel sounds no edema of the exts patient is ambulatory. Results Labs CBC & Chem 7: 04/12/18 05:25 04/13/18 08:48 Assessment and Plan Plan 52 y/o AA female with DM insulin dependent, HTN, DLD, CAD, CHF EF 30-35% from this hospitalization, mitral valve regurgitation, who presents to the ed with worsening lower exts swelling and shortness of breath. 1. Acute on Chronic systolic chf exacerbation Patient presented with symptoms above. She had an elevated bnp and symptoms and signs of chf exacerbation. Echo showed ef of 35% Started on IV lasix, patient diuresed well. She is on room air, sob has improved. She will be continued on her meds for systolic chf. Patient is ambulating, no sob or chest pain. She will be discharged home. Follow up with pcp in one week. 2. Insulin dependent DM Patient is on Levemir 40 units BID at home. She had an episode of hypoglycemia in the hospital with blood sugars around 50 in the am. I recommend that the patient continue accu checks at home and log them so she can present them to her pcp in one week. I also recommended that she use 30 units sub q BID. This was explained to the patient and she understood the instructions and why the change was being made. Patient is also on two oral agents for DM as per her documentation. She can follow up with the pcp and her meds can be adjusted as needed. 3. HTN Continue home meds for HTN 4. DLD Continue statin. 5. Mod to severe mitral valve regurgitation F/u with cardiology outpatient after discharge. PCP can refer the patient to cardiology for Systolic CHF management as well as mitral valve regurgitation. Currently no sob, chest pain, or palpitations. Progress Note: Quality VTE Deep Vein Thrombosis/Pulmonary Embolism Present on Admission: No
[2018-04-13 15:39] VITALS: BP 135/76; PULSE 92
== END 2018-04-13 16:45 | disposition home or self-care (01) ==
LOC: NEDA 13:11 → NEPD 13:11 → NEDH 04-12 01:44 → NEPGCP 04-12 07:43
PROVIDERS: ADMIT Hospitalist; ATTEND Hospitalist
DX: Z79.82 Long term (current) use of aspirin; Z79.4 Long term (current) use of insulin; I11.0 Hypertensive heart disease with heart failure; E11.649 Type 2 diabetes mellitus with hypoglycemia without coma; I25.10 Atherosclerotic heart disease of native coronary artery without angina pectoris; Z79.899 Other long term (current) drug therapy; J18.9 Pneumonia, unspecified organism; Z79.02 Long term (current) use of antithrombotics/antiplatelets; N17.9 Acute kidney failure, unspecified; J44.0 Chronic obstructive pulmonary disease with (acute) lower respiratory infection; I50.23 Acute on chronic systolic (congestive) heart failure; I42.0 Dilated cardiomyopathy; I08.3 Combined rheumatic disorders of mitral, aortic and tricuspid valves; E78.5 Hyperlipidemia, unspecified; Z87.891 Personal history of nicotine dependence
CPT/HCPCS: 71010; 71045; 80048; 80053; 81001; 82550; 82948; 82962; 83520; 83690; 83735; 83880; 84484; 85025; 85610; 85730; 93005; 93306; 96365; 96368; 96372; 96375; 96376; 99285; G0378; J0456; J0696; J1644; J1815; J1940; J7050